=== PATIENT | male | born 1955 | race Caucasian/White ===

== ENCOUNTER 2020-06-13 09:01 | Inpatient (IN) | payer MEDICARE ==
[2020-06-13] MEDS ORDERED: VANCOMYCIN IV PER PHARMACY 1 EACH MISC MISCELLANE PRN (09:31)
[2020-06-13] MEDS ORDERED: AMPICILLIN-SULBACTAM 3 GM in SODIUM CHLORIDE 0.9% 100 ML IVPB STA (09:31)
[2020-06-13] MEDS ORDERED: ACETAMINOPHEN TAB 325 MG TAB PO PRN (09:33)
[2020-06-13] MEDS ORDERED: NALOXONE 0.4 MG/ML 1 ML VIAL IV PRN (09:33)
--- NOTE | 2020-06-13 09:43 | ED ---
General Adult HPI - General Stated complaint: Wounds on feet - sent by PCP Time Seen by Provider: 06/13/20 09:13 Source: patient, family, RN/MD, RN notes reviewed, old records reviewed Limitations: no limitations - History of Present Illness Initial comments: Patient is a pleasant 5 he 5-year-old male presenting to the emergency Department with complaints of concern for gangrene to his left foot. Patient has been seen Dr. Fox for this. Patient was advised come the emergency department this morning. Patient does complain of discomfort. Patient states he has chronic problems however much worse over the past couple of days. Patient has known blockages and does not have any pulses in his left foot. Patient states he is now getting more wounds and color is changing. No fevers. Patient does have history of similar symptoms previously and has previous toe amputations. Pain at this time is mild - Related Data Home Medications Medication Instructions Recorded Confirmed Atorvastatin [Lipitor] 40 mg PO DAILY 01/08/18 09/03/18 Clopidogrel [Plavix] 75 mg PO DAILY 01/08/18 09/03/18 Enalapril [Vasotec] 10 mg PO DAILY 01/08/18 09/03/18 Metoprolol Succinate [Toprol XL] 50 mg PO BID 01/08/18 09/03/18 Warfarin [Coumadin] 2.5 mg PO DIRECTED 01/08/18 09/03/18 Warfarin [Coumadin] 5 mg PO MOTUTHFRSA 01/08/18 09/03/18 hydroCHLOROthiazide [Hydrodiuril] 50 mg PO DAILY 01/08/18 09/03/18 metFORMIN HCL [Glucophage] 500 mg PO BID 01/08/18 09/03/18 Lidocaine 2% Gel [Xylocaine Jelly 1 applic TOPICAL ONETIME PRN 09/03/18 09/03/18 2%] Sulfamethox-Tmp 800-160Mg [Bactrim 1 tab PO Q12HR 09/03/18 09/03/18 DS 800-160 mg] Allergies Allergy/AdvReac Type Severity Reaction Status Date / Time No Known Allergies Allergy Verified 06/13/20 10:29 Review of Systems ROS Statement: Those systems with pertinent positive or pertinent negative responses have been documented in the HPI. ROS Other: All systems not noted in ROS Statement are negative. Constitutional: Denies: fever Eyes: Denies: eye pain ENT: Denies: ear pain Respiratory: Denies: cough Cardiovascular: Denies: chest pain Endocrine: Denies: fatigue Gastrointestinal: Denies: abdominal pain Genitourinary: Denies: dysuria Musculoskeletal: Denies: back pain Skin: Reports: as per HPI Neurological: Denies: weakness Past Medical History Past Medical History: Atrial Fibrillation, Diabetes Mellitus, Hyperlipidemia, Hypertension History of Any Multi-Drug Resistant Organisms: None Reported Past Surgical History: Heart Catheterization With Stent, Orthopedic Surgery Additional Past Surgical History / Comment(s): toe amputation, cataracts Past Anesthesia/Blood Transfusion Reactions: No Reported Reaction Date of Last Stent Placement:: 2015 Past Psychological History: No Psychological Hx Reported Smoking Status: Heavy tobacco smoker Past Alcohol Use History: Rare Past Drug Use History: None Reported - Past Family History Mother Family Medical History: Diabetes Mellitus General Exam Limitations: no limitations General appearance: alert, in no apparent distress Head exam: Present: atraumatic Eye exam: Present: normal appearance Neck exam: Present: normal inspection Respiratory exam: Present: normal lung sounds bilaterally Cardiovascular Exam: Present: irregular rhythm Expanded Peripheral pulses: 0: Posterior Tibialis (L), Dorsalis Pedis (L) GI/Abdominal exam: Present: soft. Absent: tenderness Extremities exam: Present: other (Left foot cool. Absent pulse. Purplish/black discoloration medially to the ankle, laterally above the left ankle. Several large ulcers. Foul odor.) Neurological exam: Present: alert Psychiatric exam: Present: normal affect, normal mood Skin exam: Present: other (Foot gangrene, left) Course Vital Signs 06/13/20 10:03 Temperature 98.1 F Pulse Rate 83 Respiratory 16 Rate Blood Pressure 111/79 O2 Sat by Pulse 95 Oximetry EKG Findings - EKG Comments: EKG Findings:: Atrial fibrillation with a rate of 88. QRS 158. QT 422. QTC 510. Right axis. Right bundle branch block. No acute ST change. Medical Decision Making - Medical Decision Making Patient updated on plan. Case was discussed with Dr. Fox who does want patient admitted to medicine with consult for him, Dr. Craft, and Dr. Bolden. No heparin is necessary. He does request Unasyn and vancomycin. Case also discussed with Dr. tena, who will admit, covering for Dr. Willoughby, who admits for Dr. Lambert. - Lab Data Result diagrams: 06/13/20 09:38 06/13/20 09:38 Disposition Clinical Impression: Gangrene of left foot Disposition: ADMITTED IP TO THIS HOSP Is patient prescribed a controlled substance at d/c from ED?: No
[2020-06-13] MEDS: HYDROmorphone 1 MG/ML 1 ML SYRINGE IVP PRN (10:01)
[2020-06-13] MEDS: SODIUM CHLORIDE 0.9% 1,000 ML IV SCH ×2 (10:08→16:59)
[2020-06-13 10:26] LABS: Basophils # (A) 0.1 k/uL (0-0.2); Basophils % (A) 0 %; Eosinophils # (A) 0.2 k/uL (0-0.7); Eosinophils % (A) 1 %; HCT 35.7 % (39.0-53.0); HGB 11.4 gm/dL (13.0-17.5); Hypochromasia Moderate; Lymphocytes # (A) 1.1 k/uL (1.0-4.8); Lymphocytes % (A) 7 %; MCH 27.2 pg (25.0-35.0); MCHC 31.9 g/dL (31.0-37.0); MCV 85.1 fL (80.0-100.0); Monocytes # (A) 0.6 k/uL (0-1.0); Monocytes % (A) 4 %; Neutrophils # (A) 13.9 k/uL (1.3-7.7); Neutrophils % (A) 87 %; Platelet Count 515 k/uL (150-450); Poikilocytosis Slight; RBC 4.19 m/uL (4.30-5.90); RDW 15.5 % (11.5-15.5)
[2020-06-13] MEDS ORDERED: VANCOMYCIN 1,750 MG in SODIUM CHLORIDE 0.9% 500 ML 500 ML IVPB ONE (10:30)
[2020-06-13] MEDS ORDERED: VANCOMYCIN 2,000 MG in SODIUM CHLORIDE 0.9% 500 ML 500 ML IVPB ONE (10:30)
[2020-06-13 10:32] LABS: Albumin 2.6 g/dL (3.5-5.0); Calcium 8.7 mg/dL (8.4-10.2); Potassium 5.6 mmol/L (3.5-5.1); Total Bilirubin 0.8 mg/dL (0.2-1.3); Total Protein 6.7 g/dL (6.3-8.2)
[2020-06-13 10:58] LABS: INR 2.7 (<1.2); Partial Thromboplastin Time 35.6 sec (22.0-30.0); Prothrombin Time 26.5 sec (9.0-12.0)
--- NOTE | 2020-06-13 11:00 | XR ---
Left foot HISTORY: Gangrene 3 views the left foot There is prior operative change status post amputation of the digits, first through fourth metatarsal s are present with associated soft tissue swelling, suspect erosion of the second metatarsal head. Fo urth metatarsal head is in close proximity to the skin level. Soft tissue swelling is noted. Fifth me tatarsal shows only the proximal portion present and may be extending through the skin on the frontal view. No evident periostitis. Lucency is present in the soft tissues involving the distal leg and fo ot. Plantar calcaneus spur noted. impression: Findings consistent with osteomyelitis, possible gas-forming organisms within the soft ti ssues, correlate for cellulitis, possible myositis, abscess.
[2020-06-13 11:39] LABS: Glucose,Whole Blood 139 mg/dL (75-99)
--- NOTE | 2020-06-13 12:30 | P.GSCN ---
History of Present Illness History of present illness: 65-year-old diabetic male history of chronic wound left foot with some gangrene changes. Patient has been admitted patient has history of atrial fibrillation coronary artery disease patient had a heart catheterization by Dr. Gaston has a triple coronary artery disease. Patient also has a left iliac occlusive disease patient will need intervention by Dr. Gaston for coronary artery disease then we will proceed for left external iliac artery and direct with patch angioplasty and possible profundoplasty after revascularization patient will need amputation Neck supple no bruit appreciated Chest clear good and both lungs few crackles the lung bases Abdomen is soft nontender Vascular examination femoral is 1+ on the right side Side is not palpable patient has a gangrene changes of the left foot Plan is discussed with Dr. Gaston patient will go for cardiac intervention as soon as possible in the meantime continue with IV antibiotic and local wound care Past Medical History Past Medical History: Atrial Fibrillation, Diabetes Mellitus, Hyperlipidemia, Hypertension History of Any Multi-Drug Resistant Organisms: None Reported Past Surgical History: Heart Catheterization With Stent, Orthopedic Surgery Additional Past Surgical History / Comment(s): toe amputation, cataracts Past Anesthesia/Blood Transfusion Reactions: No Reported Reaction Date of Last Stent Placement:: 2015 Past Psychological History: No Psychological Hx Reported Smoking Status: Heavy tobacco smoker Past Alcohol Use History: Rare Past Drug Use History: None Reported - Past Family History Mother Family Medical History: Diabetes Mellitus Medications and Allergies Home Medications Medication Instructions Recorded Confirmed Type Atorvastatin [Lipitor] 40 mg PO DAILY 01/08/18 06/13/20 History Clopidogrel [Plavix] 75 mg PO DAILY 01/08/18 06/13/20 History Enalapril [Vasotec] 10 mg PO DAILY 01/08/18 06/13/20 History Warfarin [Coumadin] See Taper PO DAILY 01/08/18 06/13/20 History Amoxicillin/Potassium Clav 1 tab PO Q12H 06/13/20 06/13/20 History [Augmentin 875-125 Tablet] Aspirin EC [Ecotrin Low Dose] 81 mg PO DAILY 06/13/20 06/13/20 History Carvedilol [Coreg] 12.5 mg PO BID-W/MEALS 06/13/20 06/13/20 History Furosemide [Lasix] 20 mg PO DAILY 06/13/20 06/13/20 History HYDROcodone/APAP 10-325MG [[place] 1 tab PO Q4H PRN 06/13/20 06/13/20 History 10-325] Insulin Detemir (Levemir) [Levemir] 30 units SQ QAM 06/13/20 06/13/20 History Allergies Allergy/AdvReac Type Severity Reaction Status Date / Time No Known Allergies Allergy Verified 06/13/20 10:29 Surgical - Exam Vital Signs Temp Pulse Resp BP Pulse Ox 98.1 F 83 16 111/79 95 06/13/20 10:03 06/13/20 10:03 06/13/20 10:03 06/13/20 10:03 06/13/20 10:03 Results - Labs 06/13/20 09:38 06/13/20 09:38 Abnormal Lab Results - Last 24 Hours (Table) 06/13/20 06/13/20 06/13/20 Range/Units 09:38 09:38 09:38 WBC 16.0 H (3.8-10.6) k/uL RBC 4.19 L (4.30-5.90) m/uL Hgb 11.4 L (13.0-17.5) gm/dL Hct 35.7 L (39.0-53.0) % Plt Count 515 H (150-450) k/uL Neutrophils # 13.9 H (1.3-7.7) k/uL PT 26.5 H (9.0-12.0) sec INR 2.7 H (<1.2) APTT 35.6 H (22.0-30.0) sec Sodium 135 L (137-145) mmol/L Potassium 5.6 H (3.5-5.1) mmol/L Carbon Dioxide 21 L (22-30) mmol/L BUN 48 H (9-20) mg/dL Creatinine 2.19 H (0.66-1.25) mg/dL Glucose 118 H (74-99) mg/dL POC Glucose (mg/dL) (75-99) mg/dL Plasma Lactic Acid Henri (0.7-2.0) mmol/L Alkaline Phosphatase 221 H (38-126) U/L Albumin 2.6 L (3.5-5.0) g/dL 06/13/20 06/13/20 Range/Units 09:38 11:38 WBC (3.8-10.6) k/uL RBC (4.30-5.90) m/uL Hgb (13.0-17.5) gm/dL Hct (39.0-53.0) % Plt Count (150-450) k/uL Neutrophils # (1.3-7.7) k/uL PT (9.0-12.0) sec INR (<1.2) APTT (22.0-30.0) sec Sodium (137-145) mmol/L Potassium (3.5-5.1) mmol/L Carbon Dioxide (22-30) mmol/L BUN (9-20) mg/dL Creatinine (0.66-1.25) mg/dL Glucose (74-99) mg/dL POC Glucose (mg/dL) 139 H (75-99) mg/dL Plasma Lactic Acid Henri 2.3 H* (0.7-2.0) mmol/L Alkaline Phosphatase (38-126) U/L Albumin (3.5-5.0) g/dL Diabetes panel 06/13/20 Range/Units 09:38 Sodium 135 L (137-145) mmol/L Potassium 5.6 H (3.5-5.1) mmol/L Chloride 106 (98-107) mmol/L Carbon Dioxide 21 L (22-30) mmol/L BUN 48 H (9-20) mg/dL Creatinine 2.19 H (0.66-1.25) mg/dL Glucose 118 H (74-99) mg/dL Calcium 8.7 (8.4-10.2) mg/dL AST 25 (17-59) U/L ALT 24 (4-49) U/L Alkaline Phosphatase 221 H (38-126) U/L Total Protein 6.7 (6.3-8.2) g/dL Albumin 2.6 L (3.5-5.0) g/dL Calcium panel 06/13/20 Range/Units 09:38 Calcium 8.7 (8.4-10.2) mg/dL Albumin 2.6 L (3.5-5.0) g/dL Pituitary panel 06/13/20 Range/Units 09:38 Sodium 135 L (137-145) mmol/L Potassium 5.6 H (3.5-5.1) mmol/L Chloride 106 (98-107) mmol/L Carbon Dioxide 21 L (22-30) mmol/L BUN 48 H (9-20) mg/dL Creatinine 2.19 H (0.66-1.25) mg/dL Glucose 118 H (74-99) mg/dL Calcium 8.7 (8.4-10.2) mg/dL Adrenal panel 06/13/20 Range/Units 09:38 Sodium 135 L (137-145) mmol/L Potassium 5.6 H (3.5-5.1) mmol/L Chloride 106 (98-107) mmol/L Carbon Dioxide 21 L (22-30) mmol/L BUN 48 H (9-20) mg/dL Creatinine 2.19 H (0.66-1.25) mg/dL Glucose 118 H (74-99) mg/dL Calcium 8.7 (8.4-10.2) mg/dL Total Bilirubin 0.8 (0.2-1.3) mg/dL AST 25 (17-59) U/L ALT 24 (4-49) U/L Alkaline Phosphatase 221 H (38-126) U/L Total Protein 6.7 (6.3-8.2) g/dL Albumin 2.6 L (3.5-5.0) g/dL
[2020-06-13] MEDS ORDERED: AMPICILLIN-SULBACTAM 1.5 GM in SODIUM CHLORIDE 0.9% 50 ML IVPB SCH (14:00)
[2020-06-13] MEDS: DAPTOmycin 500 MG in SODIUM CHLORIDE 0.9% 50 ML IVPB SCH (15:47)
[2020-06-13 16:40] LABS: Glucose,Whole Blood 173 mg/dL (75-99)
[2020-06-13] MEDS: PIPERACILLIN-TAZOBACTAM 3.375 GM in SODIUM CHLORIDE 0.9% 100 ML IVPB SCH ×2 (16:53→23:06)
[2020-06-13] MEDS: HYDROcodone/APAP 5-325MG 1 EACH TAB PO PRN ×2 (16:54→23:06)
[2020-06-13] MEDS: carvediloL 12.5 MG TAB PO SCH (16:58)
[2020-06-13] MEDS ORDERED: WARFARIN 2 MG TAB PO SCH (18:00)
[2020-06-13] MEDS ORDERED: WARFARIN 3 MG TAB PO SCH (18:00)
--- NOTE | 2020-06-13 18:40 | CONS ---
CONSULTATION DATE OF SERVICE: 06/13/2020. REASON FOR CONSULTATION: left foot. HISTORY OF PRESENT ILLNESS: The patient is a 65-year-old male with a past medical history significant for peripheral arterial disease in this patient who continue to smoke about a pack a day. This patient did have a chronic nonhealing wound to the left foot lateral border after amputation of his left fifth toe. The patient has been following up [facility] The patient noticed to have significant discoloration and some foul-smelling drainage from the left foot area. The patient has been advised admission to the hospital as the patient did have significant coronary artery disease and needs correction of that before any surgical intervention to the left foot is done. The patient denies having any fever or any chills. The patient has been complaining of pain to the left foot, more of a dull aching pain, or pressure, 5 to 6 out of 10, no radiation. The patient on presentation to the hospital was afebrile. The patient did have white count of 16,000. Kidney function is 2.19. Lactic acid was 2.3. The patient did have x-rays of the left foot which shows possible organism within the soft tissue. The patient has been started on vancomycin and Unasyn. Infectious Disease was consulted for further management of antibiotic therapy. REVIEW OF SYSTEMS: Positive points have been mentioned in HPI. Rest of systems are negative. PAST MEDICAL HISTORY: Atrial fibrillation, diabetes mellitus, hypertension, hyperlipidemia, diabetic foot infection. PAST SURGICAL HISTORY: Right transmetatarsal amputation, left fifth toe amputation, PTCA with stent, and cataract surgery. SOCIAL HISTORY: The patient continues to smoke about a pack a day. Did have heavy history of smoking. Rarely drinks. No drug use. FAMILY HISTORY: Mother history of diabetes. ALLERGIES: No known drug allergies. MEDICATIONS: Include the patient is currently on Tylenol, Rufe, aspirin, Coreg, Plavix, vancomycin, pharmacy to dose; he is on Unasyn, Lasix, Dilaudid, Levemir, Narcan, Protonix, and IV fluid. PHYSICAL EXAMINATION: Blood pressure 134/82 with a pulse of 68, temperature 97.9, he is 99% on room air. General description is an elderly male lying in bed in no distress. No tachypnea or accessory muscle of respiration use. HEENT: Examination shows slight pallor. No scleral icterus. Oral mucous membranes dry. No pharyngeal erythema or thrush. NECK: Trachea is central. No thyromegaly. LUNGS unlabored breathing with decreased breath sounds in the base, with no wheeze or crackles. HEART S1, S2. Regular rate and rhythm. ABDOMEN: Soft, no tenderness. EXTREMITIES: Left foot cold with significant blackish discoloration, foul smelling. NEUROLOGICAL: Patient awake, alert and oriented times three. Mood and affect normal. LABS: Hemoglobin 11.4, white count 16.9, BUN of 40, creatinine is 2.19. DIAGNOSTIC IMPRESSION/PLAN: 1. Patient with extensive left diabetic foot infection in this patient who did have significant PAD in this patient who continues to smoke despite having a problem with nonhealing of the wound and did have significant PAD as evidenced on the previous angiogram, also with coronary artery disease currently now admitted to the hospital with worsening left foot more likely secondary to ischemia. Underlying infection not entirely excluded in this patient with elevated white count. However, the patient not running any fever. Does not look toxic. 2. Patient with renal insufficiency, high risk of nephrotoxicity from vancomycin. PLAN: 1. Discontinue vancomycin and Unasyn. 2. Start the patient on daptomycin 500 mg daily along with Zosyn. 3. Local wound care to continue per vascular surgery. 4. We will follow on clinical condition and culture to further adjust medication if needed. Thank you for this consultation. We will follow this patient along with you. MMODL / IJN: [id number] /
--- NOTE | 2020-06-13 18:51 | P.HPIM ---
History of Present Illness This is a pleasant 65 years old male with past medical history of diabetes mellitus, hyperlipidemia, hypertension, atrial fibrillation on Coumadin. He is a patient of Dr. Lambert and was sent by his surgeon Dr. Fox to the hospital for gangrenous left foot, patient could not service 54 hole long is suffering from this problem except for a long time it was slowly progressive. Currently his left foot looks like as well as the distal part of the leg with area of fluctuation and discoloration. Patient has been sent to the hospital by his vascular surgeon Dr. Fox recommended also vascular intervention by claim agent Dr. Gaston for internal and external iliac artery disease Vitals looks stable. Labs showed leukocytosis with 16.0 K, hemoglobin 11.4, platelet 5.5. INR is 2.7. Potassium 5.6, creatinine 2.19, unknown baseline EKG showing atrial fibrillation at a rate of 88 with QTC of 510, left foot x-ray showing osteomyelitis with possible gas-forming organisms within the soft tissue, correlate for cellulitis, possible myositis an abscess Lactic acid is 2.3. Liver enzymes not elevated On admission patient was started on Unasyn and IV vancomycin Consult was placed for Dr. Gaston, infectious disease team and Dr. Omer on admission patient Review of Systems CONSTITUTIONAL: No fever, no malaise, no fatigue. HEENT: No recent visual problems or hearing problems. Denied any sore throat. CARDIOVASCULAR: No orthopnea, PND, no palpitations, no syncope. PULMONARY: No shortness of breath, no cough, no hemoptysis. GASTROINTESTINAL: No diarrhea, no nausea, no vomiting, no abdominal pain. Normoactive bowel sounds. NEUROLOGICAL: No headaches, no weakness, no numbness. HEMATOLOGICAL: Denies any bleeding or petechiae. GENITOURINARY: Denies any burning micturition, frequency, or urgency. MUSCULOSKELETAL/RHEUMATOLOGICAL: Denies any joint pain, swelling, or any muscle pain. ENDOCRINE: Denies any polyuria or polydipsia. Past Medical History Past Medical History: Atrial Fibrillation, Diabetes Mellitus, Hyperlipidemia, Hypertension History of Any Multi-Drug Resistant Organisms: None Reported Past Surgical History: Heart Catheterization With Stent, Orthopedic Surgery Additional Past Surgical History / Comment(s): toe amputation, cataracts Past Anesthesia/Blood Transfusion Reactions: No Reported Reaction Date of Last Stent Placement:: 2015 Past Psychological History: No Psychological Hx Reported Smoking Status: Heavy tobacco smoker Past Alcohol Use History: Rare Past Drug Use History: None Reported - Past Family History Mother Family Medical History: Diabetes Mellitus Medications and Allergies Home Medications Medication Instructions Recorded Confirmed Type Atorvastatin [Lipitor] 40 mg PO DAILY 01/08/18 06/13/20 History Clopidogrel [Plavix] 75 mg PO DAILY 01/08/18 06/13/20 History Enalapril [Vasotec] 10 mg PO DAILY 01/08/18 06/13/20 History Warfarin [Coumadin] See Taper PO DAILY 01/08/18 06/13/20 History Amoxicillin/Potassium Clav 1 tab PO Q12H 06/13/20 06/13/20 History [Augmentin 875-125 Tablet] Aspirin EC [Ecotrin Low Dose] 81 mg PO DAILY 06/13/20 06/13/20 History Carvedilol [Coreg] 12.5 mg PO BID-W/MEALS 06/13/20 06/13/20 History Furosemide [Lasix] 20 mg PO DAILY 06/13/20 06/13/20 History HYDROcodone/APAP 10-325MG [[place] 1 tab PO Q4H PRN 06/13/20 06/13/20 History 10-325] Insulin Detemir (Levemir) [Levemir] 30 units SQ QAM 06/13/20 06/13/20 History Allergies Allergy/AdvReac Type Severity Reaction Status Date / Time No Known Allergies Allergy Verified 06/13/20 10:29 Physical Exam Vitals: Vital Signs Temp Pulse Pulse Resp BP BP Pulse Ox 06/13/20 10:56 97.7 F 74 18 100/56 98 06/13/20 10:03 98.1 F 83 16 111/79 95 Intake and Output 06/12/20 06/13/20 06/13/20 22:59 06:59 14:59 Other: Weight 91.626 kg GENERAL: The patient is alert and oriented x3, not in any acute distress. Well developed, well nourished. HEENT: Pupils are round and equally reacting to light. EOMI. No scleral icterus. No conjunctival pallor. Normocephalic, atraumatic. No pharyngeal erythema. No thyromegaly. CARDIOVASCULAR: S1 and S2 present. No murmurs, rubs, or gallops. PULMONARY: Chest is clear to auscultation, no wheezing or crackles. ABDOMEN: Soft, nontender, nondistended, normoactive bowel sounds. No palpable organomegaly. MUSCULOSKELETAL: No joint swelling or deformity. -EXTREMITIES: No cyanosis, clubbing, or pedal edema. Left foot is black, painless, looks infected with area of fluctuation abscess especially on the lateral side, his gangrene looks extending into the distal left leg NEUROLOGICAL: Gross neurological examination did not reveal any focal deficits. SKIN: No rashes. No petechiae Results CBC & Chem 7: 06/13/20 09:38 06/13/20 09:38 Labs: Abnormal Lab Results - Last 24 Hours (Table) 06/13/20 06/13/20 06/13/20 Range/Units 09:38 09:38 09:38 WBC 16.0 H (3.8-10.6) k/uL RBC 4.19 L (4.30-5.90) m/uL Hgb 11.4 L (13.0-17.5) gm/dL Hct 35.7 L (39.0-53.0) % Plt Count 515 H (150-450) k/uL Neutrophils # 13.9 H (1.3-7.7) k/uL PT 26.5 H (9.0-12.0) sec INR 2.7 H (<1.2) APTT 35.6 H (22.0-30.0) sec Sodium 135 L (137-145) mmol/L Potassium 5.6 H (3.5-5.1) mmol/L Carbon Dioxide 21 L (22-30) mmol/L BUN 48 H (9-20) mg/dL Creatinine 2.19 H (0.66-1.25) mg/dL Glucose 118 H (74-99) mg/dL POC Glucose (mg/dL) (75-99) mg/dL Plasma Lactic Acid Henri (0.7-2.0) mmol/L Alkaline Phosphatase 221 H (38-126) U/L Albumin 2.6 L (3.5-5.0) g/dL 06/13/20 06/13/20 Range/Units 09:38 11:38 WBC (3.8-10.6) k/uL RBC (4.30-5.90) m/uL Hgb (13.0-17.5) gm/dL Hct (39.0-53.0) % Plt Count (150-450) k/uL Neutrophils # (1.3-7.7) k/uL PT (9.0-12.0) sec INR (<1.2) APTT (22.0-30.0) sec Sodium (137-145) mmol/L Potassium (3.5-5.1) mmol/L Carbon Dioxide (22-30) mmol/L BUN (9-20) mg/dL Creatinine (0.66-1.25) mg/dL Glucose (74-99) mg/dL POC Glucose (mg/dL) 139 H (75-99) mg/dL Plasma Lactic Acid Henri 2.3 H* (0.7-2.0) mmol/L Alkaline Phosphatase (38-126) U/L Albumin (3.5-5.0) g/dL Thrombosis Risk Factor Assmnt - Choose All That Apply Each Factor Represents 1 point: Acute NM Each Risk Factor Represents 2 Points: Age 61-74 years Thrombosis Risk Factor Assessment Total Risk Factor Score: 3 Thrombosis Risk Factor Assessment Level: Moderate Risk Assessment and Plan Assessment: Gangrene of the left foot, x-rays suspicious for cellulitis, myositis or an abscess with possible osteomyelitis and gas-forming organisms in the soft tissue Acute kidney injury with hyperkalemia Peripheral vascular disease History of coronary artery disease, 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 Continue with antibiotics and follow-up recommendation of infectious disease team. Also claim agent and vascular surgeon on the case. Continue with gentle hydration on follow-up creatinine. Pain management Hold vasotec Labs and medication were reviewed.. Continue same treatment. Continue with symptomatic treatment. Resume home medication. Monitor lytes and vitals. DVT and GI prophylaxis. Further recommendations depends on the clinical course of the patient DVT prophylaxis: Warfarin GI Prophylaxis: Ppi PT/OT: Pending Prognosis is guarded
[2020-06-13 20:42] LABS: Glucose,Whole Blood 221 mg/dL (75-99)
[2020-06-13] MEDS: INSULIN ASPART (NovoLOG) 100 UNIT/ML VIAL SQ SCH (21:04)
[2020-06-14] MEDS: SODIUM CHLORIDE 0.9% 1,000 ML IV SCH ×4 (03:08→23:54)
[2020-06-14] MEDS: HYDROcodone/APAP 5-325MG 1 EACH TAB PO PRN ×5 (04:00→22:17)
[2020-06-14 06:49] LABS: Glucose,Whole Blood 131 mg/dL (75-99)
[2020-06-14 06:50] LABS: Basophils % (A) 0 %; Eosinophils # (A) 0.2 k/uL (0-0.7); Eosinophils % (A) 1 %; HCT 31.9 % (39.0-53.0); HGB 10.1 gm/dL (13.0-17.5); Hypochromasia Moderate; Lymphocytes # (A) 0.9 k/uL (1.0-4.8); Lymphocytes % (A) 6 %; MCH 27.1 pg (25.0-35.0); MCHC 31.6 g/dL (31.0-37.0); MCV 85.8 fL (80.0-100.0); Mean Platelet Volume 7.8; Monocytes # (A) 0.5 k/uL (0-1.0); Monocytes % (A) 4 %; Neutrophils # (A) 12.2 k/uL (1.3-7.7); Neutrophils % (A) 87 %; Platelet Count 421 k/uL (150-450); Poikilocytosis Slight; RBC 3.72 m/uL (4.30-5.90); RDW 15.6 % (11.5-15.5)
[2020-06-14] MEDS: HYDROmorphone 0.5 MG/0.5 ML SYRINGE IVP PRN ×2 (07:29→21:31)
[2020-06-14] MEDS: INSULIN DETEMIR (LEVEMIR) 100 UNIT/ML SYR SQ SCH (08:13)
[2020-06-14] MEDS: ASPIRIN 81 MG PO SCH (08:13)
[2020-06-14] MEDS: CLOPIDOGREL 75 MG TAB PO SCH (08:13)
[2020-06-14] MEDS: carvediloL 12.5 MG TAB PO SCH ×2 (08:14→17:25)
[2020-06-14] MEDS: PIPERACILLIN-TAZOBACTAM 3.375 GM in SODIUM CHLORIDE 0.9% 100 ML IVPB SCH ×3 (08:14→23:52)
[2020-06-14] MEDS: FUROSEMIDE 20 MG TAB PO SCH (08:22)
[2020-06-14] MEDS ORDERED: VANCOMYCIN 1,750 MG in SODIUM CHLORIDE 0.9% 500 ML 500 ML IVPB SCH (09:00)
[2020-06-14] MEDS ORDERED: ATORVASTATIN 40 MG TAB PO SCH (09:00)
[2020-06-14] MEDS: INSULIN ASPART (NovoLOG) 100 UNIT/ML VIAL SQ SCH ×4 (09:04→21:11)
[2020-06-14 09:42] LABS: INR 3.85 (0.90-1.11); Prothrombin Time 37.6 sec (9.9-11.9)
[2020-06-14] MEDS: PANTOPRAZOLE 40 MG/10 ML VIAL IV SCH (10:07)
[2020-06-14 11:19] LABS: Glucose,Whole Blood 202 mg/dL (75-99)
--- NOTE | 2020-06-14 11:23 | P.PN ---
Subjective This is a pleasant 65 years old male with past medical history of diabetes mellitus, hyperlipidemia, hypertension, atrial fibrillation on Coumadin. He is a patient of Dr. Lambert and was sent by his surgeon Dr. Fox to the hospital for gangrenous left foot, patient could not service 54 hole long is suffering from this problem except for a long time it was slowly progressive. Currently his left foot looks like as well as the distal part of the leg with area of fluctuation and discoloration. Patient has been sent to the hospital by his vascular surgeon Dr. Fox recommended also vascular intervention by maintenance instructor Dr. Gaston for internal and external iliac artery disease Vitals looks stable. Labs showed leukocytosis with 16.0 K, hemoglobin 11.4, platelet 5.5. INR is 2.7. Potassium 5.6, creatinine 2.19, unknown baseline EKG showing atrial fibrillation at a rate of 88 with QTC of 510, left foot x-ray showing osteomyelitis with possible gas-forming organisms within the soft tissue, correlate for cellulitis, possible myositis an abscess Lactic acid is 2.3. Liver enzymes not elevated On admission patient was started on Unasyn and IV vancomycin Consult was placed for Dr. Gaston, infectious disease team and Dr. Omer on admission patient 06/14/2020 Patient admitted with left foot gangrene, no marked change in his clinical picture, Vitas looks stable and patient is afebrile. Leukocytosis improved to 14 K. Sugar is controlled and lactic acid is back to normal. BMP is pending because his and send out test Vascular Surgery and infectious disease on the case. [employer] Professional consult is pending Review of Systems CONSTITUTIONAL: No fever, no malaise, no fatigue. HEENT: No recent visual problems or hearing problems. Denied any sore throat. CARDIOVASCULAR: No orthopnea, PND, no palpitations, no syncope. PULMONARY: No shortness of breath, no cough, no hemoptysis. GASTROINTESTINAL: No diarrhea, no nausea, no vomiting, no abdominal pain. Normoactive bowel sounds. Active Medications Generic Name Dose Route Start Last Admin Trade Name Freq PRN Reason Stop Dose Admin Acetaminophen 650 mg 06/13/20 09:33 Acetaminophen Tab 325 Mg Tab PO Q6HR PRN Mild Pain or Fever > 100.5 Hydrocodone Bitart/Acetaminophen 1 each 06/13/20 09:33 06/14/20 08:13 Hydrocodone/Apap 5-325mg 1 Each Tab PO 1 each Q4HR PRN Administration Moderate Pain Aspirin 81 mg 06/14/20 09:00 06/14/20 08:13 Aspirin 81 Mg PO 81 mg DAILY [facility] Administration Carvedilol 12.5 mg 06/13/20 17:30 06/14/20 08:14 Carvedilol 12.5 Mg Tab PO 12.5 mg BID-W/MEALS [facility] Administration Clopidogrel Bisulfate 75 mg 06/14/20 09:00 06/14/20 08:13 Clopidogrel 75 Mg Tab PO 75 mg DAILY [facility] Administration Furosemide 20 mg 06/14/20 09:00 06/14/20 08:22 Furosemide 20 Mg Tab PO 20 mg DAILY [facility] Administration Hydromorphone HCl 0.5 mg 06/13/20 09:33 06/14/20 07:29 Hydromorphone 0.5 Mg/0.5 Ml Syringe IVP 0.5 mg Q3HR PRN Administration Moderate Pain Hydromorphone HCl 1 mg 06/13/20 09:33 06/13/20 10:01 Hydromorphone 1 Mg/Ml 1 Ml Syringe IVP 1 mg Q3HR PRN Administration Severe Pain Sodium Chloride 1,000 mls @ 130 mls/hr 06/13/20 09:15 06/14/20 09:04 Saline 0.9% IV Not Given .Q7H42M [facility] Daptomycin 500 mg/ Sodium 50 mls @ 100 mls/hr 06/13/20 16:00 06/13/20 15:47 Chloride IVPB 100 mls/hr Q24H [facility] Administration Protocol Piperacillin Sod/Tazobactam 100 mls @ 25 mls/hr 06/13/20 16:00 06/14/20 08:14 Sod 3.375 gm/ Sodium Chloride IVPB 25 mls/hr Q8HR [facility] Administration Insulin Aspart 0 unit 06/13/20 21:00 06/14/20 09:04 Insulin Aspart (Novolog) 100 Unit/Ml Vial SQ Not Given ACHS [facility] Protocol Insulin Detemir 30 unit 06/14/20 07:00 06/14/20 08:13 Insulin Detemir (Levemir) 100 Unit/Ml Syr SQ 30 unit DAILY@0700 [facility] Administration Miscellaneous Information 0 each 06/13/20 12:01 Warfarin Per Pharmacy MISCELLANE DIRECTED PRN ANTICOAG Naloxone HCl 0.2 mg 06/13/20 09:33 Naloxone 0.4 Mg/Ml 1 Ml Vial IV Q2M PRN Opioid Reversal Pantoprazole Sodium 40 mg 06/14/20 09:00 06/14/20 10:07 Pantoprazole 40 Mg/10 Ml Vial IV 40 mg DAILY [facility] Administration Warfarin Sodium 0 mg 06/14/20 18:00 Warfarin 0.5 Mg Tab PO 06/14/20 18:01 ONCE@1800 ONE Objective - Vital Signs Vital signs: Vital Signs Temp 97.8 F 06/14/20 08:13 Pulse 75 06/14/20 08:04 Resp 16 06/14/20 08:14 BP 111/61 06/14/20 08:04 Pulse Ox 94 L 06/14/20 08:04 Intake & Output 06/13/20 06/14/20 06/14/20 18:59 06:59 18:59 Weight 91.626 kg Other: Voiding Method Toilet Toilet Urinal Urinal # Voids 3 - Exam GENERAL: The patient is alert and oriented x3, not in any acute distress. Well developed, well nourished. HEENT: Pupils are round and equally reacting to light. EOMI. No scleral icterus. No conjunctival pallor. Normocephalic, atraumatic. No pharyngeal erythema. No thyromegaly. CARDIOVASCULAR: S1 and S2 present. No murmurs, rubs, or gallops. PULMONARY: Chest is clear to auscultation, no wheezing or crackles. ABDOMEN: Soft, nontender, nondistended, normoactive bowel sounds. No palpable organomegaly. MUSCULOSKELETAL: No joint swelling or deformity. -EXTREMITIES: No cyanosis, clubbing, or pedal edema. Left foot is black, painless, looks infected with area of fluctuation abscess especially on the lateral side, his gangrene looks extending into the distal left leg NEUROLOGICAL: Gross neurological examination did not reveal any focal deficits. SKIN: No rashes. No petechiae - Labs CBC & Chem 7: 06/14/20 06:41 06/13/20 09:38 Labs: Abnormal Lab Results - Last 24 Hours (Table) 06/13/20 06/13/20 06/13/20 Range/Units 09:38 11:38 16:39 WBC (3.8-10.6) k/uL RBC (4.30-5.90) m/uL Hgb (13.0-17.5) gm/dL Hct (39.0-53.0) % RDW (11.5-15.5) % Neutrophils # 13.9 H (1.3-7.7) k/uL Lymphocytes # (1.0-4.8) k/uL PT (9.9-11.9) sec INR (0.90-1.11) POC Glucose (mg/dL) 139 H 173 H (75-99) mg/dL 06/13/20 06/14/20 06/14/20 Range/Units 20:40 06:41 06:41 WBC 14.0 H (3.8-10.6) k/uL RBC 3.72 L (4.30-5.90) m/uL Hgb 10.1 L (13.0-17.5) gm/dL Hct 31.9 L (39.0-53.0) % RDW 15.6 H (11.5-15.5) % Neutrophils # 12.2 H (1.3-7.7) k/uL Lymphocytes # 0.9 L (1.0-4.8) k/uL PT 37.6 H (9.9-11.9) sec INR 3.85 H (0.90-1.11) POC Glucose (mg/dL) 221 H (75-99) mg/dL 06/14/20 06/14/20 Range/Units 06:47 11:17 WBC (3.8-10.6) k/uL RBC (4.30-5.90) m/uL Hgb (13.0-17.5) gm/dL Hct (39.0-53.0) % RDW (11.5-15.5) % Neutrophils # (1.3-7.7) k/uL Lymphocytes # (1.0-4.8) k/uL PT (9.9-11.9) sec INR (0.90-1.11) POC Glucose (mg/dL) 131 H 202 H (75-99) mg/dL Assessment and Plan Assessment: Gangrene of the left foot, x-rays suspicious for cellulitis, myositis or an abscess with possible osteomyelitis and gas-forming organisms in the soft tissue Acute kidney injury with hyperkalemia Peripheral vascular disease History of coronary artery disease, 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 Continue with antibiotics and follow-up recommendation of infectious disease te am. Also maintenance instructor and vascular surgeon on the case. Continue with gentle hydration on follow-up creatinine. Pain management Hold vasotec Labs and medication were reviewed.. Continue same treatment. Continue with symptomatic treatment. Resume home medication. Monitor lytes and vitals. DVT and GI prophylaxis. Further recommendations depends on the clinical course of the patient DVT prophylaxis: Warfarin GI Prophylaxis: Ppi PT/OT: Pending Prognosis is guarded
[2020-06-14 12:17] LABS: African American GFR (CKD) 39.1 (60.0-200.0); Anion Gap 1.2 mmol/L (4.00-12.00); BUN/Creat Ratio 23.5 Ratio (12.00-20.00); Calcium 7.8 mg/dL (8.7-10.3); Carbon Dioxide 21.8 mmol/L (21.6-31.8); Non-African American GFR(CKD) 33.8 (60.0-200.0); Potassium 5.3 mmol/L (3.5-5.5)
[2020-06-14] MEDS: DAPTOmycin 500 MG in SODIUM CHLORIDE 0.9% 50 ML IVPB SCH (15:29)
[2020-06-14 16:52] LABS: Glucose,Whole Blood 148 mg/dL (75-99)
[2020-06-14] MEDS ORDERED: WARFARIN 0.5 MG TAB PO ONE (18:00)
--- NOTE | 2020-06-14 19:34 | P.CRDCN ---
History of Present Illness History of present illness: HISTORY OF PRESENTING ILLNESS This is a pleasant 65-year-old male past medical history significant for coronary artery disease status post PCI to the circumflex in 2003, PAD, persistent atrial fibrillation, hypertension, dyslipidemia and tobacco abuse. He follows in the office with Dr. Craft. Patient initially was seen for preoperative clearance by Dr. Craft for possible peripheral intervention. He had workup including an echocardiogram that showed ejection fraction 40-45% as well as a Lexiscan 06/02/20 which showed fixed inferior wall defect. Patient did have heart catheterization by Dr. Craft, which did show significant reported triple- vessel coronary artery disease, records currently not available. Patient follow-up with Dr. Fox for his nonhealing foot ulcer which had a malodorous and therefore was recommended to come to hospital. Patient overall does not state he has any fevers, chills. He denies foot pain. He was found to have left iliac occlusive disease and is being recommended for vascular intervention. DIAGNOSTICS EKG reveals appears to be atrial flutter with parable conduction, controlled rate at 88, normal axis, right bundle branch block, left posterior fascicular block, nonspecific ST depressions Laboratory reviewed, blood cell 14.0, hemoglobin 10.1, platelets 421, INR 3.85, sodium 132, creatinine 2.0. Current cardiac medications include aspirin 81 mg daily, carvedilol 12.5 mg daily, Plavix 75 mg daily, Lasix 20 mg daily, Coumadin has been held. REVIEW OF SYSTEMS At the time of my exam: CONSTITUTIONAL: Denies fever or chills. CARDIOVASCULAR: Denies chest pain, shortness of breath, orthopnea, PND or palpitations. RESPIRATORY: Denies cough. GASTROINTESTINAL: Denies abdominal pain, diarrhea, constipation, nausea or vomiting. MUSCULOSKELETAL: Denies myalgias. NEUROLOGIC: Denies numbness, tingling or weakness. ENDOCRINE: Denies fatigue, weight change, polydipsia or polyurina. GENITOURINARY: Denies burning, hematuria or urgency with micturation. HEMATOLOGIC: Denies history of anemia or bleeding. PHYSICAL EXAMINATION Blood pressure 120/73 heart rate 67 afebrile and maintaining oxygen saturation on room air. CONSTITUTIONAL: No apparent distress, chronically ill-appearing. HEENT: Head is normocephalic. Pupils are equal, round. Sclerae anicteric. Mucous membranes of the mouth are moist. No JVD. No carotid bruit. CHEST EXAMINATION: + Mild wheeze, no crackles. HEART EXAMINATION: Irregularly irregular rate and rhythm. S1, S2 heard. No murmurs, gallops or rub. ABDOMEN: Soft, nontender. Positive bowel sounds. EXTREMITIES: + left lower extremity foul-smelling with purple cyanosis of to his midcalf, + right lower extremity chronic venous stasis changes NEUROLOGIC EXAMINATION: Patient is awake, alert and oriented x3. ASSESSMENT 1. Coronary artery disease with reported 3 vessel disease 2. Ischemic cardiomyopathy ejection fraction 40-45% by most recent echo 3. Acute limb ischemia with nonhealing infected left foot 4. Questionable gangrene of left lower extremity with foul-smelling wound 5. Supratherapeutic INR 6. Typical atrial flutter, history of atrial fibrillation 7. Anemia 8. Tobacco abuse 9. Diabetes mellitus 10. PAD with plan for vascular revascularization 11. Chronic kidney disease, creatinine 2.19, 2.0 and unclear baseline PLAN Patient with complex medical problems. Patient with reported 3 vessel disease, ischemic cardiomyopathy as well as ischemic left lower extremity and nonhealing wound. Ideally coronary revascularization before vascular revascularization. Patient with increased INR at 3.85. We will give vitamin K for her anticipated possible heart catheterization or revascularization and may transition to heparin if overshoot INR. We will attempt to obtain baseline labs is unsure if this is a TIA. Continue with heart failure regimen as able. Patient appears euvolemic. Prognosis guarded. Past Medical History Past Medical History: Atrial Fibrillation, Diabetes Mellitus, Hyperlipidemia, Hypertension History of Any Multi-Drug Resistant Organisms: None Reported Past Surgical History: Heart Catheterization With Stent, Orthopedic Surgery Additional Past Surgical History / Comment(s): toe amputation, cataracts Past Anesthesia/Blood Transfusion Reactions: No Reported Reaction Date of Last Stent Placement:: 2015 Past Psychological History: No Psychological Hx Reported Smoking Status: Heavy tobacco smoker Past Alcohol Use History: Rare Past Drug Use History: None Reported - Past Family History Mother Family Medical History: Diabetes Mellitus Medications and Allergies Home Medications Medication Instructions Recorded Confirmed Type Atorvastatin [Lipitor] 40 mg PO DAILY 01/08/18 06/13/20 History Clopidogrel [Plavix] 75 mg PO DAILY 01/08/18 06/13/20 History Enalapril [Vasotec] 10 mg PO DAILY 01/08/18 06/13/20 History Warfarin [Coumadin] See Taper PO DAILY 01/08/18 06/13/20 History Amoxicillin/Potassium Clav 1 tab PO Q12H 06/13/20 06/13/20 History [Augmentin 875-125 Tablet] Aspirin EC [Ecotrin Low Dose] 81 mg PO DAILY 06/13/20 06/13/20 History Carvedilol [Coreg] 12.5 mg PO BID-W/MEALS 06/13/20 06/13/20 History Furosemide [Lasix] 20 mg PO DAILY 06/13/20 06/13/20 History HYDROcodone/APAP 10-325MG [[place] 1 tab PO Q4H PRN 06/13/20 06/13/20 History 10-325] Insulin Detemir (Levemir) [Levemir] 30 units SQ QAM 06/13/20 06/13/20 History Allergies Allergy/AdvReac Type Severity Reaction Status Date / Time No Known Allergies Allergy Verified 06/13/20 10:29 Physical Exam Vitals: Vital Signs Temp Pulse Resp BP Pulse Ox 06/14/20 14:00 98.3 F 67 17 120/73 99 06/14/20 08:14 16 06/14/20 08:13 97.8 F 06/14/20 08:04 75 18 111/61 94 L 06/14/20 01:31 98.1 F 66 120/74 96 06/13/20 20:00 16 06/13/20 19:56 98.4 F 62 119/80 96 Intake and Output 06/14/20 06/14/20 06/14/20 06:59 14:59 22:59 Other: Voiding Method Toilet Urinal # Voids 3 Results 06/14/20 06:41 06/14/20 06:41 Coagulation 06/14/20 Range/Units 06:41 PT 37.6 H (9.9-11.9) sec CBC 06/14/20 Range/Units 06:41 WBC 14.0 H (3.8-10.6) k/uL RBC 3.72 L (4.30-5.90) m/uL Hgb 10.1 L (13.0-17.5) gm/dL Hct 31.9 L (39.0-53.0) % Plt Count 421 (150-450) k/uL Comprehensive Metabolic Panel 06/14/20 Range/Units 06:41 Sodium 132 L (135-145) mmol/L Potassium 5.3 (3.5-5.5) mmol/L Chloride 109 (96-109) mmol/L Carbon Dioxide 21.8 (21.6-31.8) mmol/L BUN 47.0 H (9.0-27.0) mg/dL Creatinine 2.0 H (0.6-1.5) mg/dL Glucose 121 H (70-110) mg/dL Calcium 7.8 L (8.7-10.3) mg/dL Current Medications Generic Name Dose Route Start Last Admin Trade Name Freq PRN Reason Stop Dose Admin Acetaminophen 650 mg 06/13/20 09:33 Acetaminophen Tab 325 Mg Tab PO Q6HR PRN Mild Pain or Fever > 100.5 Hydrocodone Bitart/Acetaminophen 1 each 06/13/20 09:33 06/14/20 17:25 Hydrocodone/Apap 5-325mg 1 Each Tab PO 1 each Q4HR PRN Administration Moderate Pain Aspirin 81 mg 06/14/20 09:00 06/14/20 08:13 Aspirin 81 Mg PO 81 mg DAILY [facility] Administration Carvedilol 12.5 mg 06/13/20 17:30 06/14/20 17:25 Carvedilol 12.5 Mg Tab PO 12.5 mg BID-W/MEALS [facility] Administration Clopidogrel Bisulfate 75 mg 06/14/20 09:00 06/14/20 08:13 Clopidogrel 75 Mg Tab PO 75 mg DAILY [facility] Administration Furosemide 20 mg 06/14/20 09:00 06/14/20 08:22 Furosemide 20 Mg Tab PO 20 mg DAILY [facility] Administration Hydromorphone HCl 0.5 mg 06/13/20 09:33 06/14/20 07:29 Hydromorphone 0.5 Mg/0.5 Ml Syringe IVP 0.5 mg Q3HR PRN Administration Moderate Pain Hydromorphone HCl 1 mg 06/13/20 09:33 06/13/20 10:01 Hydromorphone 1 Mg/Ml 1 Ml Syringe IVP 1 mg Q3HR PRN Administration Severe Pain Sodium Chloride 1,000 mls @ 130 mls/hr 06/13/20 09:15 06/14/20 16:15 Saline 0.9% IV 130 mls/hr .Q7H42M [facility] Administration Daptomycin 500 mg/ Sodium 50 mls @ 100 mls/hr 06/13/20 16:00 06/14/20 15:29 Chloride IVPB 100 mls/hr Q24H [facility] Administration Protocol Piperacillin Sod/Tazobactam 100 mls @ 25 mls/hr 06/13/20 16:00 06/14/20 16:15 Sod 3.375 gm/ Sodium Chloride IVPB 25 mls/hr Q8HR [facility] Administration Insulin Aspart 0 unit 06/13/20 21:00 06/14/20 17:25 Insulin Aspart (Novolog) 100 Unit/Ml Vial SQ 1 unit ACHS [facility] Administration Protocol Insulin Detemir 30 unit 06/14/20 07:00 06/14/20 08:13 Insulin Detemir (Levemir) 100 Unit/Ml Syr SQ 30 unit DAILY@0700 [facility] Administration Miscellaneous Information 0 each 06/13/20 12:01 Warfarin Per Pharmacy MISCELLANE DIRECTED PRN ANTICOAG Naloxone HCl 0.2 mg 06/13/20 09:33 Naloxone 0.4 Mg/Ml 1 Ml Vial IV Q2M PRN Opioid Reversal Pantoprazole Sodium 40 mg 06/14/20 09:00 06/14/20 10:07 Pantoprazole 40 Mg/10 Ml Vial IV 40 mg DAILY [facility] Administration Intake and Output 06/14/20 06/14/20 06/14/20 06:59 14:59 22:59 Other: Voiding Method Toilet Urinal # Voids 3 06/14/20 06:41 06/14/20 06:41
[2020-06-14] MEDS ORDERED: PHYTONADIONE ORAL 5 MG/5 ML ORAL.SYRG PO STA (19:37)
[2020-06-14 21:07] LABS: Glucose,Whole Blood 119 mg/dL (75-99)
--- NOTE | 2020-06-14 21:59 | PN ---
PROGRESS NOTE DATE OF SERVICE: 06/14/2020 REASON FOR FOLLOWUP: Left foot gangrene and concern for secondary infection. INTERVAL HISTORY: The patient is currently afebrile. Patient is breathing comfortably. Denies having any chest pain. No shortness of breath or cough. Pain to the left foot is currently controlled. No abdominal pain. No diarrhea. PHYSICAL EXAMINATION: Blood pressure is 110/72 with a pulse of 67. Temperature is 97.8. He is 96% on room air. General description is an elderly male lying in bed, slightly elderly male lying in bed in no distress. Respiratory system: Unlabored breathing. Clear to auscultation anteriorly. Heart S1, S2. Regular rate and rhythm. Abdomen soft, no tenderness. Left foot is currently dressed up. LABS: Hemoglobin is 10.3, white count 14,000, creatinine is 2.0. DIAGNOSTIC IMPRESSION AND PLAN: Patient with left diabetic foot wound with concern for underlying gangrene as severe peripheral arterial disease in this patient who continues to smoke, admitted to the hospital for coronary intervention followed by left leg amputation. Patient is covered with daptomycin, Zosyn, cultures will be followed. Monitor clinical course closely. MMODL / IJN: [id number] /
[2020-06-15] MEDS: HYDROmorphone 0.5 MG/0.5 ML SYRINGE IVP PRN ×2 (05:50→08:30)
[2020-06-15 06:47] LABS: Basophils % (A) 0 %; Eosinophils # (A) 0.1 k/uL (0-0.7); Eosinophils % (A) 1 %; HCT 34.8 % (39.0-53.0); HGB 10.5 gm/dL (13.0-17.5); Hypochromasia Marked; Lymphocytes # (A) 0.7 k/uL (1.0-4.8); Lymphocytes % (A) 5 %; MCH 26.5 pg (25.0-35.0); MCHC 30.1 g/dL (31.0-37.0); Mean Platelet Volume 7.2; Monocytes # (A) 0.4 k/uL (0-1.0); Monocytes % (A) 3 %; Neutrophils # (A) 12.4 k/uL (1.3-7.7); Neutrophils % (A) 90 %; Platelet Count 402 k/uL (150-450); Poikilocytosis Slight; RBC 3.96 m/uL (4.30-5.90); RDW 15.4 % (11.5-15.5); WBC 13.8 k/uL (3.8-10.6)
[2020-06-15 07:05] LABS: Glucose,Whole Blood 92 mg/dL (75-99)
[2020-06-15] MEDS: CLOPIDOGREL 75 MG TAB PO SCH (08:09)
[2020-06-15] MEDS: SODIUM CHLORIDE 0.9% 1,000 ML IV SCH ×3 (08:09→23:57)
[2020-06-15] MEDS: PIPERACILLIN-TAZOBACTAM 3.375 GM in SODIUM CHLORIDE 0.9% 100 ML IVPB SCH ×2 (08:09→17:08)
[2020-06-15] MEDS: carvediloL 12.5 MG TAB PO SCH ×2 (08:09→17:08)
[2020-06-15] MEDS: ASPIRIN 81 MG PO SCH (08:09)
[2020-06-15] MEDS: FUROSEMIDE 20 MG TAB PO SCH (08:09)
[2020-06-15] MEDS: INSULIN ASPART (NovoLOG) 100 UNIT/ML VIAL SQ SCH ×4 (08:09→21:39)
[2020-06-15] MEDS: PANTOPRAZOLE 40 MG/10 ML VIAL IV SCH (08:10)
[2020-06-15] MEDS: INSULIN DETEMIR (LEVEMIR) 100 UNIT/ML SYR SQ SCH (08:20)
[2020-06-15 09:25] LABS: African American GFR (CKD) 39.1 (60.0-200.0); Anion Gap 7.7 mmol/L (4.00-12.00); BUN/Creat Ratio 21.5 Ratio (12.00-20.00); Carbon Dioxide 23.3 mmol/L (21.6-31.8); Non-African American GFR(CKD) 33.8 (60.0-200.0); Potassium 4.7 mmol/L (3.5-5.5)
[2020-06-15 09:47] LABS: INR 2.4 (0.90-1.11); Prothrombin Time 24.3 sec (9.9-11.9)
--- NOTE | 2020-06-15 11:23 | P.PN ---
Subjective This is a pleasant 65 years old male with past medical history of diabetes mellitus, hyperlipidemia, hypertension, atrial fibrillation on Coumadin. He is a patient of Dr. Lambert and was sent by his surgeon Dr. Fox to the hospital for gangrenous left foot, patient could not service 54 hole long is suffering from this problem except for a long time it was slowly progressive. Currently his left foot looks like as well as the distal part of the leg with area of fluctuation and discoloration. Patient has been sent to the hospital by his vascular surgeon Dr. Fox recommended also vascular intervention by undergraduate intern Dr. Gaston for internal and external iliac artery disease Vitals looks stable. Labs showed leukocytosis with 16.0 K, hemoglobin 11.4, platelet 5.5. INR is 2.7. Potassium 5.6, creatinine 2.19, unknown baseline EKG showing atrial fibrillation at a rate of 88 with QTC of 510, left foot x-ray showing osteomyelitis with possible gas-forming organisms within the soft tissue, correlate for cellulitis, possible myositis an abscess Lactic acid is 2.3. Liver enzymes not elevated On admission patient was started on Unasyn and IV vancomycin Consult was placed for Dr. Gaston, infectious disease team and Dr. Omer on admission patient 06/14/2020 Patient admitted with left foot gangrene, no marked change in his clinical picture, Vitas looks stable and patient is afebrile. Leukocytosis improved to 14 K. Sugar is controlled and lactic acid is back to normal. BMP is pending because his and send out test Vascular Surgery and infectious disease on the case. Fashion Photographer consult is pending 06/15/2020 Patient with left foot and possible distal leg gangrene, stable with no proximal progression compared to the last couple days, dressing is in place. Patient looks comfortable, not in distress, fully awake and oriented, he denies chest pain or dyspnea. Or any other complaints. He is hemodynamically stable. WBC t rending down to 13.8 K, INR is trended down to 2.4, while his Coumadin is held since admission. Creatinine is stable at 2.0 since admission. He is on broad-spectrum antibiotics DAPTOMYCIN and Zosyn as per ID team. Vascular surgery team are planning for debridement and amputation of the dictation cardiology input is appreciated, they recommended cardiac cath prior to lower extremity renovascular patient surgery, however high INR is not recommended, so vitamin K is a provided and patient may be bridged with heparin infusion length subtherapeutic INR. Objective - Vital Signs Vital signs: Vital Signs Temp 98.2 F 06/15/20 07:48 Pulse 67 06/15/20 08:00 Resp 16 06/15/20 08:00 BP 144/84 06/15/20 07:48 Pulse Ox 99 06/15/20 07:48 Intake & Output 06/14/20 06/15/20 06/15/20 18:59 06:59 18:59 Other: Voiding Method Toilet Toilet Toilet Urinal Urinal Urinal # Voids 3 - Exam GENERAL: The patient is alert and oriented x3, not in any acute distress. Well developed, well nourished. HEENT: Pupils are round and equally reacting to light. EOMI. No scleral icterus. No conjunctival pallor. Normocephalic, atraumatic. No pharyngeal erythema. No thyromegaly. CARDIOVASCULAR: S1 and S2 present. No murmurs, rubs, or gallops. PULMONARY: Chest is clear to auscultation, no wheezing or crackles. ABDOMEN: Soft, nontender, nondistended, normoactive bowel sounds. No palpable organomegaly. MUSCULOSKELETAL: No joint swelling or deformity. -EXTREMITIES: No cyanosis, clubbing, or pedal edema. Left foot is black, painless, looks infected with area of fluctuation abscess especially on the lateral side, his gangrene looks extending into the distal left leg NEUROLOGICAL: Gross neurological examination did not reveal any focal deficits. SKIN: No rashes. No petechiae - Labs CBC & Chem 7: 06/15/20 06:13 06/15/20 06:13 Labs: Abnormal Lab Results - Last 24 Hours (Table) 06/14/20 06/14/20 06/14/20 Range/Units 06:41 11:17 16:48 WBC (3.8-10.6) k/uL RBC (4.30-5.90) m/uL Hgb (13.0-17.5) gm/dL Hct (39.0-53.0) % MCHC (31.0-37.0) g/dL Neutrophils # (1.3-7.7) k/uL Lymphocytes # (1.0-4.8) k/uL PT (9.9-11.9) sec INR (0.90-1.11) Sodium 132 L (135-145) mmol/L Anion Gap 1.20 L (4.00-12.00) mmol/L BUN 47.0 H (9.0-27.0) mg/dL Creatinine 2.0 H (0.6-1.5) mg/dL Est GFR (CKD-EPI)AfAm 39.1 L (60.0-200.0) Est GFR (CKD-EPI)NonAf 33.8 L (60.0-200.0) BUN/Creatinine Ratio 23.50 H (12.00-20.00) Ratio Glucose 121 H (70-110) mg/dL POC Glucose (mg/dL) 202 H 148 H (75-99) mg/dL Calcium 7.8 L (8.7-10.3) mg/dL 06/14/20 06/15/20 06/15/20 Range/Units 21:04 06:13 06:13 WBC 13.8 H (3.8-10.6) k/uL RBC 3.96 L (4.30-5.90) m/uL Hgb 10.5 L (13.0-17.5) gm/dL Hct 34.8 L (39.0-53.0) % MCHC 30.1 L (31.0-37.0) g/dL Neutrophils # 12.4 H (1.3-7.7) k/uL Lymphocytes # 0.7 L (1.0-4.8) k/uL PT 24.3 H (9.9-11.9) sec INR 2.40 H (0.90-1.11) Sodium (135-145) mmol/L Anion Gap (4.00-12.00) mmol/L BUN (9.0-27.0) mg/dL Creatinine (0.6-1.5) mg/dL Est GFR (CKD-EPI)AfAm (60.0-200.0) Est GFR (CKD-EPI)NonAf (60.0-200.0) BUN/Creatinine Ratio (12.00-20.00) Ratio Glucose (70-110) mg/dL POC Glucose (mg/dL) 119 H (75-99) mg/dL Calcium (8.7-10.3) mg/dL 06/15/20 Range/Units 06:13 WBC (3.8-10.6) k/uL RBC (4.30-5.90) m/uL Hgb (13.0-17.5) gm/dL Hct (39.0-53.0) % MCHC (31.0-37.0) g/dL Neutrophils # (1.3-7.7) k/uL Lymphocytes # (1.0-4.8) k/uL PT (9.9-11.9) sec INR (0.90-1.11) Sodium (135-145) mmol/L Anion Gap (4.00-12.00) mmol/L BUN 43.0 H (9.0-27.0) mg/dL Creatinine 2.0 H (0.6-1.5) mg/dL Est GFR (CKD-EPI)AfAm 39.1 L (60.0-200.0) Est GFR (CKD-EPI)NonAf 33.8 L (60.0-200.0) BUN/Creatinine Ratio 21.50 H (12.00-20.00) Ratio Glucose (70-110) mg/dL POC Glucose (mg/dL) (75-99) mg/dL Calcium 8.0 L (8.7-10.3) mg/dL Microbiology - Last 24 Hours (Table) 06/13/20 09:38 Blood Culture - Preliminary Blood No Growth after 24 hours 06/13/20 09:38 Blood Culture - Preliminary Blood No Growth after 24 hours Assessment and Plan Assessment: Gangrene of the left foot, x-rays suspicious for cellulitis, myositis or an abscess with possible osteomyelitis and gas-forming organisms in the soft tissue Acute kidney injury with hyperkalemia coronary artery disease, triple coronary artery disease status post cardiac cath . Cardiac cath is recommended Peripheral vascular disease, need a vascular since surgery after cardiac cath. Diabetes mellitus Elevated lactic acid Hyperlipidemia Hypertension Chronic atrial fibrillation on Coumadin Plan: This is a pleasant 65 years old male who presents with gangrenous left foot. Continue with antibiotics and follow-up recommendation of infectious disease team. Also undergraduate intern and vascular surgeon on the case. Continue with gentle hydration on follow-up creatinine. Hold vasotec, Consult nephrology team. Pain management Fashion Photographer recommended cardiac cath to be followed by lower extremity vascular surgery Labs and medication were reviewed.. Continue same treatment. Continue with symptomatic treatment. Resume home medication. Monitor lytes and vitals. DVT and GI prophylaxis. Further recommendations depends on the clinical course of the patient DVT prophylaxis: Warfarin, on hold. High INR GI Prophylaxis: Ppi PT/OT: Pending Prognosis is guarded
[2020-06-15] MEDS: HYDROcodone/APAP 5-325MG 1 EACH TAB PO PRN (11:36)
[2020-06-15 11:38] LABS: Glucose,Whole Blood 175 mg/dL (75-99)
--- NOTE | 2020-06-15 12:20 | P.PN ---
Subjective HISTORY OF PRESENTING ILLNESS This is a pleasant 65-year-old male past medical history significant for coronary artery disease status post PCI to the circumflex in 2003, PAD, persistent atrial fibrillation on coumadin, hypertension, dyslipidemia and tobacco abuse. He follows in the office with Dr. Craft. He is seen and examined resting comfortably in bed in no acute distress. He denies symptoms of shortness of breath, chest pain, dizziness or palpitations. Blood pressure 144/84 heart rate 67 afebrile and maintaining oxygen saturation on room air. Laboratory data reviewed, WBC 13.8, hemoglobin 10.5, platelets 402, INR 2.4, sodium 137, potass ium 4.7, creatinine 2.0. Currently maintained on aspirin 81 mg daily, carvedilol 12.5 mg twice a day, Plavix 75 mg daily, Lasix 20 mg by mouth daily. Coumadin on hold. Cardiac catheterization performed June 05 at [facility] reveals RCA with severe disease, left main angiographically normal, circumflex approximately has a lesion in the range of 60-70%, mid lesion range of 50% by the bifurcation of the second OM which also has a tight lesion, mid to distal lesion 95%, LAD proximal mild disease only, mid LAD has a long tubular lesion in the range of 80-90% distally appears angiographically normal. The first diagonal branch is severely diseased, second diagonal branch also with significant disease. Authorization performed PHYSICAL EXAMINATION CONSTITUTIONAL: No apparent distress, chronically ill-appearing. Appears older than stated age. HEENT: Head is normocephalic. Pupils are equal, round. Sclerae anicteric. Mucous membranes of the mouth are moist. No JVD. No carotid bruit. CHEST EXAMINATION: Expiratory wheezes, no rales or rhonchi. HEART EXAMINATION: Irregular rate and rhythm. S1, S2 heard. No murmurs, gallops or rub. EXTREMITIES: + left lower extremity foul-smelling with purple cyanosis of to his midcalf, + right lower extremity chronic venous stasis changes and toe amputations ASSESSMENT Coronary artery disease with reported [address] surgery evaluation. Ischemic cardiomyopathy ejection fraction 40-45% Acute limb ischemia with non-healing infected left foot Questionable gangrene of left lower extremity with foul-smelling wound Supratherapeutic INR Leukocytosis Typical atrial flutter, history of atrial fibrillation on coumadin Anemia Tobacco abuse Diabetes mellitus PAD with plan for vascular revascularization and right toe amputations Chronic kidney disease PLAN Continue to hold Coumadin. Request CT surgery evaluation. Further recommendations to follow based upon clinical course. Nurse Practitioner note has been reviewed, I agree with a documented findings and plan of care. Patient was seen and examined. Objective - Vital Signs Vital signs: Vital Signs Temp 98.2 F 06/15/20 07:48 Pulse 67 06/15/20 08:00 Resp 16 06/15/20 08:00 BP 144/84 06/15/20 07:48 Pulse Ox 99 06/15/20 07:48 Intake & Output 06/14/20 06/15/20 06/15/20 18:59 06:59 18:59 Other: Voiding Method Toilet Toilet Toilet Urinal Urinal Urinal # Voids 3 - Labs CBC & Chem 7: 06/15/20 06:13 06/15/20 06:13 Labs: Abnormal Lab Results - Last 24 Hours (Table) 06/14/20 06/14/20 06/14/20 Range/Units 06:41 11:17 16:48 WBC (3.8-10.6) k/uL RBC (4.30-5.90) m/uL Hgb (13.0-17.5) gm/dL Hct (39.0-53.0) % MCHC (31.0-37.0) g/dL Neutrophils # (1.3-7.7) k/uL Lymphocytes # (1.0-4.8) k/uL PT (9.9-11.9) sec INR (0.90-1.11) Sodium 132 L (135-145) mmol/L Anion Gap 1.20 L (4.00-12.00) mmol/L BUN 47.0 H (9.0-27.0) mg/dL Creatinine 2.0 H (0.6-1.5) mg/dL Est GFR (CKD-EPI)AfAm 39.1 L (60.0-200.0) Est GFR (CKD-EPI)NonAf 33.8 L (60.0-200.0) BUN/Creatinine Ratio 23.50 H (12.00-20.00) Ratio Glucose 121 H (70-110) mg/dL POC Glucose (mg/dL) 202 H 148 H (75-99) mg/dL Calcium 7.8 L (8.7-10.3) mg/dL 06/14/20 06/15/20 06/15/20 Range/Units 21:04 06:13 06:13 WBC 13.8 H (3.8-10.6) k/uL RBC 3.96 L (4.30-5.90) m/uL Hgb 10.5 L (13.0-17.5) gm/dL Hct 34.8 L (39.0-53.0) % MCHC 30.1 L (31.0-37.0) g/dL Neutrophils # 12.4 H (1.3-7.7) k/uL Lymphocytes # 0.7 L (1.0-4.8) k/uL PT 24.3 H (9.9-11.9) sec INR 2.40 H (0.90-1.11) Sodium (135-145) mmol/L Anion Gap (4.00-12.00) mmol/L BUN (9.0-27.0) mg/dL Creatinine (0.6-1.5) mg/dL Est GFR (CKD-EPI)AfAm (60.0-200.0) Est GFR (CKD-EPI)NonAf (60.0-200.0) BUN/Creatinine Ratio (12.00-20.00) Ratio Glucose (70-110) mg/dL POC Glucose (mg/dL) 119 H (75-99) mg/dL Calcium (8.7-10.3) mg/dL 06/15/20 Range/Units 06:13 WBC (3.8-10.6) k/uL RBC (4.30-5.90) m/uL Hgb (13.0-17.5) gm/dL Hct (39.0-53.0) % MCHC (31.0-37.0) g/dL Neutrophils # (1.3-7.7) k/uL Lymphocytes # (1.0-4.8) k/uL PT (9.9-11.9) sec INR (0.90-1.11) Sodium (135-145) mmol/L Anion Gap (4.00-12.00) mmol/L BUN 43.0 H (9.0-27.0) mg/dL Creatinine 2.0 H (0.6-1.5) mg/dL Est GFR (CKD-EPI)AfAm 39.1 L (60.0-200.0) Est GFR (CKD-EPI)NonAf 33.8 L (60.0-200.0) BUN/Creatinine Ratio 21.50 H (12.00-20.00) Ratio Glucose (70-110) mg/dL POC Glucose (mg/dL) (75-99) mg/dL Calcium 8.0 L (8.7-10.3) mg/dL Microbiology - Last 24 Hours (Table) 06/13/20 09:38 Blood Culture - Preliminary Blood No Growth after 24 hours 06/13/20 09:38 Blood Culture - Preliminary Blood No Growth after 24 hours
[2020-06-15] MEDS ORDERED: PHYTONADIONE ORAL 5 MG/5 ML ORAL.SYRG PO STA (14:07)
--- NOTE | 2020-06-15 14:11 | P.PN ---
Progress Note - Text 65-year-old gentleman, history of peripheral vascular disease, history of coronary artery disease patient has history of A. fib Coumadin has been held he is on Plavix his PT is 24.3 INR is 2.40. Patient was seen by the cardiac surgeon and cardiology patient has a wet gangrene of the left foot patient needs a coronary artery bypass patient had a three-vessel occlusive disease. Plan is discussed with cardiac cardiology and cardiac surgeons recommend to have a disarticulation of the left foot and then we will proceed for coronary artery bypass after that patient will need left iliac and direct me this patch angioplasty with the total occlusion of the left external iliac artery and profunda is not visualized discussed with the patient all the risk and complication discussed patient understands we will proceed this afternoon
[2020-06-15] MEDS: HYDROmorphone 1 MG/ML 1 ML SYRINGE IVP PRN (14:37)
--- NOTE | 2020-06-15 14:37 | P.PN ---
Subjective Progress Note Date: 06/15/20 HISTORY OF PRESENT ILLNESS This is a 65-year-old male treated for left foot gangrene and concern for secondary infection due to severe peripheral arterial disease. Patient denies having any fever or chills. No chest pain. No shortness of breath or cough. Patient has wet gangrene of the left foot and area is cool to the touch. Patient needs a coronary artery bypass for three-vessel disease. Plan is for disarticulation of the left foot and then proceed with coronary artery bypass graft PHYSICAL EXAMINATION Gen: This is a 65-year-old female HEENT: Head is atraumatic, normocephalic. Pupils equal, round. Sclerae is anicteric. NECK: Supple. No JVD. No lymphadenopathy. LUNGS: Clear to auscultation. No wheezes or rhonchi. No intercostal retractions. HEART: Regular rate and rhythm. No murmur. ABDOMEN: Soft. Bowel sounds are present. No masses. No tenderness. EXTREMITIES: Resting to the left foot with distal wet gangrene changes, follow over. Distal foot is cool to touch. NEUROLOGICAL: Patient is awake, alert and oriented x3. ASSESSMENT Left foot wet gangrene Severe peripheral artery disease Ischemia left lower extremity Triple-vessel coronary artery disease PLAN Continue daptomycin 500 mg IV piggyback daily Continue Zosyn 3.375 g IV piggyback every 8 hours The above dictated assessment and findings were discussed with Dr. Jason. The impression and plan of care have been directed as dictated. Barb Melara nurse practitioner acting as scribe for Dr. Jason. Objective - Vital Signs Vital signs: Vital Signs Temp 98.2 F 06/15/20 07:48 Pulse 67 06/15/20 08:00 Resp 16 06/15/20 08:00 BP 144/84 06/15/20 07:48 Pulse Ox 99 06/15/20 07:48 Intake & Output 06/14/20 06/15/20 06/15/20 18:59 06:59 18:59 Other: Voiding Method Toilet Toilet Toilet Urinal Urinal Urinal # Voids 3 - Labs CBC & Chem 7: 06/15/20 06:13 06/15/20 06:13 Labs: Abnormal Lab Results - Last 24 Hours (Table) 06/14/20 06/14/20 06/14/20 Range/Units 06:41 11:17 16:48 WBC (3.8-10.6) k/uL RBC (4.30-5.90) m/uL Hgb (13.0-17.5) gm/dL Hct (39.0-53.0) % MCHC (31.0-37.0) g/dL Neutrophils # (1.3-7.7) k/uL Lymphocytes # (1.0-4.8) k/uL PT (9.9-11.9) sec INR (0.90-1.11) Sodium 132 L (135-145) mmol/L Anion Gap 1.20 L (4.00-12.00) mmol/L BUN 47.0 H (9.0-27.0) mg/dL Creatinine 2.0 H (0.6-1.5) mg/dL Est GFR (CKD-EPI)AfAm 39.1 L (60.0-200.0) Est GFR (CKD-EPI)NonAf 33.8 L (60.0-200.0) BUN/Creatinine Ratio 23.50 H (12.00-20.00) Ratio Glucose 121 H (70-110) mg/dL POC Glucose (mg/dL) 202 H 148 H (75-99) mg/dL Calcium 7.8 L (8.7-10.3) mg/dL 06/14/20 06/15/20 06/15/20 Range/Units 21:04 06:13 06:13 WBC 13.8 H (3.8-10.6) k/uL RBC 3.96 L (4.30-5.90) m/uL Hgb 10.5 L (13.0-17.5) gm/dL Hct 34.8 L (39.0-53.0) % MCHC 30.1 L (31.0-37.0) g/dL Neutrophils # 12.4 H (1.3-7.7) k/uL Lymphocytes # 0.7 L (1.0-4.8) k/uL PT 24.3 H (9.9-11.9) sec INR 2.40 H (0.90-1.11) Sodium (135-145) mmol/L Anion Gap (4.00-12.00) mmol/L BUN (9.0-27.0) mg/dL Creatinine (0.6-1.5) mg/dL Est GFR (CKD-EPI)AfAm (60.0-200.0) Est GFR (CKD-EPI)NonAf (60.0-200.0) BUN/Creatinine Ratio (12.00-20.00) Ratio Glucose (70-110) mg/dL POC Glucose (mg/dL) 119 H (75-99) mg/dL Calcium (8.7-10.3) mg/dL 06/15/20 Range/Units 06:13 WBC (3.8-10.6) k/uL RBC (4.30-5.90) m/uL Hgb (13.0-17.5) gm/dL Hct (39.0-53.0) % MCHC (31.0-37.0) g/dL Neutrophils # (1.3-7.7) k/uL Lymphocytes # (1.0-4.8) k/uL PT (9.9-11.9) sec INR (0.90-1.11) Sodium (135-145) mmol/L Anion Gap (4.00-12.00) mmol/L BUN 43.0 H (9.0-27.0) mg/dL Creatinine 2.0 H (0.6-1.5) mg/dL Est GFR (CKD-EPI)AfAm 39.1 L (60.0-200.0) Est GFR (CKD-EPI)NonAf 33.8 L (60.0-200.0) BUN/Creatinine Ratio 21.50 H (12.00-20.00) Ratio Glucose (70-110) mg/dL POC Glucose (mg/dL) (75-99) mg/dL Calcium 8.0 L (8.7-10.3) mg/dL Microbiology - Last 24 Hours (Table) 06/13/20 09:38 Blood Culture - Preliminary Blood No Growth after 24 hours 06/13/20 09:38 Blood Culture - Preliminary Blood No Growth after 24 hours
--- NOTE | 2020-06-15 15:08 | P.GSCN ---
<Ifeoma Navarro - Last Filed: 06/15/20 15:06> History of Present Illness Consult date: 06/15/20 Reason for Consult: Triple vessel coronary artery disease Requesting physician: Satish Johnson History of present illness: This is a 65 year old inactive gentleman who follows on an outpatient basis with Dr. Carlos for primary care and Dr. Loza for PAD and critical limb ischemia of the left foot. He has a previous medical history of coronary artery disease with stenting to the circumflex, ischemic cardiomyopathy with EF 40-45%, HTN, chronic atrial fibrillation on Coumadin for anticoagulation, PAD with occluded left iliac/femoral artery and chronic lower extremity arterial wounds, CKD, and current heavy tobacco dependance. He had a stress test for preoperative clearance for lower extremity endarterectomy which was abnormal with fixed de fect with akinesia of the inferior wall. He was recommended to undergo heart catheterization which was completed at [facility] by Dr. Craft on 06/05/2020 which demonstrated severe disease in the right coronary artery, dominant left circumflex with proximal disease 60-70%, mid disease 50%, distal left circumflex with 95% stenosis, as well as long tubular lesion in the mid LAD in the range of 80-90%. The plans was for the patient to follow-up with cardiothoracic surgery and an outpatient basis for recommendations regarding surgical revascularization. Unfortunately this gentleman presented to [facility] emergency room at the request of Dr. Loza secondary to malodorous left lower extremity wound with concern for infection. He denied any fever or chills, chest pain or shortness of breath, his only complaint was of lack of activity due to extreme pain in his left leg description consistent with claudication. He had a foot x-ray in the emergency room consistent with osteomyelitis, possible gas forming organisms. WBC 16.0, INR 2.7, creatinine 2.19, lactic acid 2.3 on admission. The patient was initiated on IV antibiotics and admitted with consultation placed to Dr. Loza, cardiology, and infectious disease. Due to his known history of coronary artery disease Dr. Lopez from cardiac surgery was consulted for surgical revascularization recommendations. Review of Systems Review of systems was completed and was negative except as noted Past Medical History Past Medical History: Atrial Fibrillation, Coronary Artery Disease (CAD), COPD, Diabetes Mellitus, Hyperlipidemia, Hypertension, Renal Disease Additional Past Medical History / Comment(s): PAD History of Any Multi-Drug Resistant Organisms: None Reported Past Surgical History: Heart Catheterization With Stent, Orthopedic Surgery Additional Past Surgical History / Comment(s): toe amputation, cataracts Past Anesthesia/Blood Transfusion Reactions: No Reported Reaction Date of Last Stent Placement:: 2015 Past Psychological History: No Psychological Hx Reported Smoking Status: Heavy tobacco smoker Past Alcohol Use History: Rare Past Drug Use History: None Reported - Past Family History Mother Family Medical History: Diabetes Mellitus Medications and Allergies Home Medications Medication Instructions Recorded Confirmed Type Atorvastatin [Lipitor] 40 mg PO DAILY 01/08/18 06/13/20 History Clopidogrel [Plavix] 75 mg PO DAILY 01/08/18 06/13/20 History Enalapril [Vasotec] 10 mg PO DAILY 01/08/18 06/13/20 History Warfarin [Coumadin] See Taper PO DAILY 01/08/18 06/13/20 History Amoxicillin/Potassium Clav 1 tab PO Q12H 06/13/20 06/13/20 History [Augmentin 875-125 Tablet] Aspirin EC [Ecotrin Low Dose] 81 mg PO DAILY 06/13/20 06/13/20 History Carvedilol [Coreg] 12.5 mg PO BID-W/MEALS 06/13/20 06/13/20 History Furosemide [Lasix] 20 mg PO DAILY 06/13/20 06/13/20 History HYDROcodone/APAP 10-325MG [[place] 1 tab PO Q4H PRN 06/13/20 06/13/20 History 10-325] Insulin Detemir (Levemir) [Levemir] 30 units SQ QAM 06/13/20 06/13/20 History Allergies Allergy/AdvReac Type Severity Reaction Status Date / Time No Known Allergies Allergy Verified 06/15/20 17:12 Surgical - Exam Vital Signs Temp Pulse Resp BP Pulse Ox 98.1 F 83 16 111/79 95 06/13/20 10:03 06/13/20 10:03 06/13/20 10:03 06/13/20 10:03 06/13/20 10:03 - General well developed, well nourished, no distress, moderate pain, chronically ill - Eyes normal ocular movement - ENT no hearing loss - Neck no masses, no bruits, trachea midline - Respiratory Lungs sounds diminished bilaterally with x-ray wheezes present. Respirations even, nonlabored. Currently on room air with oxygen saturation 96%. - Cardiovascular S1, S2 present. Irregular rate and rhythm. Absent left lower extremity pulses, left lower extremity cool to touch - Abdomen Abdomen: soft, non tender, bowel sounds - Genitourinary Deferred - Rectum Deferred - Integumentary Left lower extremity very foul smelling, wrapped with dressing. Skin is cool to touch and cyanotic appearing. Pitcher in chart. Right lower extremity with chronic venous stasis changes - Neurologic normal coordination - Musculoskeletal normal posture - Psychiatric oriented to time, oriented to person, oriented to place, speech is normal, memory intact Results - Labs 06/15/20 06:13 06/15/20 06:13 Abnormal Lab Results - Last 24 Hours (Table) 06/14/20 06/14/20 06/15/20 Range/Units 16:48 21:04 06:13 WBC 13.8 H (3.8-10.6) k/uL RBC 3.96 L (4.30-5.90) m/uL Hgb 10.5 L (13.0-17.5) gm/dL Hct 34.8 L (39.0-53.0) % MCHC 30.1 L (31.0-37.0) g/dL Neutrophils # 12.4 H (1.3-7.7) k/uL Lymphocytes # 0.7 L (1.0-4.8) k/uL PT (9.9-11.9) sec INR (0.90-1.11) BUN (9.0-27.0) mg/dL Creatinine (0.6-1.5) mg/dL Est GFR (CKD-EPI)AfAm (60.0-200.0) Est GFR (CKD-EPI)NonAf (60.0-200.0) BUN/Creatinine Ratio (12.00-20.00) Ratio POC Glucose (mg/dL) 148 H 119 H (75-99) mg/dL Calcium (8.7-10.3) mg/dL 06/15/20 06/15/20 06/15/20 Range/Units 06:13 06:13 11:37 WBC (3.8-10.6) k/uL RBC (4.30-5.90) m/uL Hgb (13.0-17.5) gm/dL Hct (39.0-53.0) % MCHC (31.0-37.0) g/dL Neutrophils # (1.3-7.7) k/uL Lymphocytes # (1.0-4.8) k/uL PT 24.3 H (9.9-11.9) sec INR 2.40 H (0.90-1.11) BUN 43.0 H (9.0-27.0) mg/dL Creatinine 2.0 H (0.6-1.5) mg/dL Est GFR (CKD-EPI)AfAm 39.1 L (60.0-200.0) Est GFR (CKD-EPI)NonAf 33.8 L (60.0-200.0) BUN/Creatinine Ratio 21.50 H (12.00-20.00) Ratio POC Glucose (mg/dL) 175 H (75-99) mg/dL Calcium 8.0 L (8.7-10.3) mg/dL Microbiology - Last 24 Hours (Table) 06/13/20 09:38 Blood Culture - Preliminary Blood No Growth after 48 hours 06/13/20 09:38 Blood Culture - Preliminary Blood No Growth after 48 hours Diabetes panel 06/15/20 Range/Units 06:13 Sodium 137 (135-145) mmol/L Potassium 4.7 (3.5-5.5) mmol/L Chloride 106 (96-109) mmol/L Carbon Dioxide 23.3 (21.6-31.8) mmol/L BUN 43.0 H (9.0-27.0) mg/dL Creatinine 2.0 H (0.6-1.5) mg/dL Glucose 83 (70-110) mg/dL Calcium 8.0 L (8.7-10.3) mg/dL Calcium panel 06/15/20 Range/Units 06:13 Calcium 8.0 L (8.7-10.3) mg/dL Pituitary panel 06/15/20 Range/Units 06:13 Sodium 137 (135-145) mmol/L Potassium 4.7 (3.5-5.5) mmol/L Chloride 106 (96-109) mmol/L Carbon Dioxide 23.3 (21.6-31.8) mmol/L BUN 43.0 H (9.0-27.0) mg/dL Creatinine 2.0 H (0.6-1.5) mg/dL Glucose 83 (70-110) mg/dL Calcium 8.0 L (8.7-10.3) mg/dL Adrenal panel 06/15/20 Range/Units 06:13 Sodium 137 (135-145) mmol/L Potassium 4.7 (3.5-5.5) mmol/L Chloride 106 (96-109) mmol/L Carbon Dioxide 23.3 (21.6-31.8) mmol/L BUN 43.0 H (9.0-27.0) mg/dL Creatinine 2.0 H (0.6-1.5) mg/dL Glucose 83 (70-110) mg/dL Calcium 8.0 L (8.7-10.3) mg/dL - Imaging Additional studies: Heart catheterization films from [facility] uploaded and reviewed with Dr. Lopez Assessment and Plan Assessment: 1. Triple-vessel coronary artery disease with previous stenting to the circumflex 2. PAD with critical limb ischemia of the left foot, occluded left iliac/femo ral artery, nonhealing infected gangrenous left foot 3. Ischemic cardiomyopathy with EF 40-45% 4. Hypertension 5. Chronic atrial fibrillation on Coumadin for anticoagulation 6. Chronic kidney disease 7. Current heavy tobacco dependence 8. Insulin-dependent diabetes mellitus 9. Lactic acidosis on admission Plan: The patient was seen and examined with Dr. Lopez. Chart/diagnostics were reviewed. The patient remains chest pain free. The case was discussed in d etail between Dr. Lopez, Dr. Johnson, and Dr. Fox. At this time our recommendation is for amputation of the left foot followed by IV antibiotics and recovery from infection. The patient is not a cardiac surgery candidate at this time as he would be extremely high risk. Once he has recovered from his amputation and infection discussion can take place regarding revascularization of left iliac artery as well as coronary artery revascularization. Recommend continuing aspirin, statin, Plavix, beta radha therapy. Reintroduce Coumadin when okay with vascular surgery and cardiology. Our recommendations were discussed at length with the patient by Dr. Lopez. We also strongly recommended smoking cessation. Continue medical management per primary care, cardiology, vascular surgery and infectious disease. Please call us with any further questions. Thank you Dr. Johnson for this consult. Time with Patient: Greater than 30 <AzoKj barbour - Last Filed: 06/19/20 10:55> Surgical - Exam Vital Signs Temp Pulse Resp BP Pulse Ox 98.1 F 83 16 111/79 95 06/13/20 10:03 06/13/20 10:03 06/13/20 10:03 06/13/20 10:03 06/13/20 10:03 Results - Labs 06/17/20 06:35 06/19/20 05:46 Abnormal Lab Results - Last 24 Hours (Table) 06/18/20 06/18/20 06/18/20 Range/Units 12:54 16:41 20:30 PT (9.9-11.9) sec INR (0.90-1.11) BUN (9.0-27.0) mg/dL Creatinine (0.6-1.5) mg/dL Est GFR (CKD-EPI)AfAm (60.0-200.0) Est GFR (CKD-EPI)NonAf (60.0-200.0) POC Glucose (mg/dL) 209 H 156 H 140 H (75-99) mg/dL Calcium (8.7-10.3) mg/dL 06/19/20 06/19/20 06/19/20 Range/Units 05:46 05:46 07:04 PT 20.8 H (9.9-11.9) sec INR 2.03 H (0.90-1.11) BUN 33.0 H (9.0-27.0) mg/dL Creatinine 1.9 H (0.6-1.5) mg/dL Est GFR (CKD-EPI)AfAm 41.7 L (60.0-200.0) Est GFR (CKD-EPI)NonAf 35.9 L (60.0-200.0) POC Glucose (mg/dL) 131 H (75-99) mg/dL Calcium 8.1 L (8.7-10.3) mg/dL Microbiology - Last 24 Hours (Table) 06/15/20 18:45 Anaerobic Culture - Preliminary Foot - Left 06/15/20 18:45 Gram Stain - Final Foot - Left Tissue Culture - Final Providencia alcalifaciens Methicillin resist S. aureus 06/13/20 09:38 Blood Culture - Preliminary Blood No Growth after 120 hours 06/13/20 09:38 Blood Culture - Preliminary Blood No Growth after 120 hours Diabetes panel 06/19/20 Range/Units 05:46 Sodium 138 (135-145) mmol/L Potassium 4.8 (3.5-5.5) mmol/L Chloride 109 (96-109) mmol/L Carbon Dioxide 23.8 (21.6-31.8) mmol/L BUN 33.0 H (9.0-27.0) mg/dL Creatinine 1.9 H (0.6-1.5) mg/dL Glucose 107 (70-110) mg/dL Calcium 8.1 L (8.7-10.3) mg/dL Calcium panel 06/19/20 Range/Units 05:46 Calcium 8.1 L (8.7-10.3) mg/dL Pituitary panel 06/19/20 Range/Units 05:46 Sodium 138 (135-145) mmol/L Potassium 4.8 (3.5-5.5) mmol/L Chloride 109 (96-109) mmol/L Carbon Dioxide 23.8 (21.6-31.8) mmol/L BUN 33.0 H (9.0-27.0) mg/dL Creatinine 1.9 H (0.6-1.5) mg/dL Glucose 107 (70-110) mg/dL Calcium 8.1 L (8.7-10.3) mg/dL Adrenal panel 06/19/20 Range/Units 05:46 Sodium 138 (135-145) mmol/L Potassium 4.8 (3.5-5.5) mmol/L Chloride 109 (96-109) mmol/L Carbon Dioxide 23.8 (21.6-31.8) mmol/L BUN 33.0 H (9.0-27.0) mg/dL Creatinine 1.9 H (0.6-1.5) mg/dL Glucose 107 (70-110) mg/dL Calcium 8.1 L (8.7-10.3) mg/dL Assessment and Plan Plan: Patient would benefit from guillotine amputation for control of sepsis followed by planned vascular surgery that could potentially be preceded by PCI if deemed feasible with proper medical therapy . Patient not candidate for CABG. KJ LOPEZ MD
[2020-06-15] MEDS ORDERED: DEXTROSE 50% SYRINGE 50 ML IVP ONE (17:04)
[2020-06-15 17:08] LABS: Glucose,Whole Blood 67 mg/dL (75-99)
[2020-06-15] MEDS: DAPTOmycin 500 MG in SODIUM CHLORIDE 0.9% 50 ML IVPB SCH (17:08)
[2020-06-15] MEDS ORDERED: IV FLUID CONTINUATION 500 ML IV ONE ×2 (17:11)
[2020-06-15 17:21] LABS: Glucose,Whole Blood 103 mg/dL (75-99)
[2020-06-15] MEDS ORDERED: KETAMINE 10 MG/ML 20 ML VIAL ONE (17:55)
[2020-06-15] MEDS ORDERED: PROPOFOL 10 MG/ML 20 ML VIAL IV ONE (17:55)
[2020-06-15] MEDS ORDERED: MIDAZOLAM 2 MG/2 ML VIAL ONE (17:55)
[2020-06-15] MEDS ORDERED: ROPIVACAINE 5 MG/ML 30 ML VIAL ONE (17:55)
[2020-06-15] MEDS ORDERED: fentaNYL (PF) 50 MCG/ML 2 ML AMP ONE (17:55)
[2020-06-15] MEDS ORDERED: LIDOCAINE 1% INJ 10MG/ML (20 ML MDV) SQ ONE ×2 (18:08)
[2020-06-15] MEDS ORDERED: SODIUM CHLORIDE 0.9% 1,000 ML IV ONE ×2 (18:41→19:42)
[2020-06-15 18:54] LABS: Glucose,Whole Blood 79 mg/dL (75-99)
[2020-06-15] MEDS ORDERED: HYDROmorphone 1 MG/ML 1 ML SYRINGE IVP ONE ×6 (18:58→19:14)
[2020-06-15] MEDS ORDERED: diphenhydrAMINE 50 MG/ML 1 ML VIAL IVP ONE (19:26)
--- NOTE | 2020-06-15 19:34 | OP ---
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 OPERATION: Disarticulation of the foot. ANESTHESIA: Ankle block and IV sedation. This patient has a history of triple coronary artery disease. Patient needs a major amputation. Patient is going for coronary artery bypass graft. DESCRIPTION OF PROCEDURE: The patient was brought to the operating room. Left leg was prepped and draped in the usual sterile manner. The patient had wet gangrene of the left foot. Lidocaine 1% was infiltrated before ankle block. After that, incision was made on the dorsum aspect of the ankle, deepened through skin, fat and fascia, tendons were divided. Then the incision was extended medially and laterally and deepened through skin, fat, fascia, and tendons were divided. The incision was made posteriorly to the ankle. Tendo calcaneus was divided. There was some bleeding noted. Tibial vessels were heavily calcified, which were suture-ligated with Prolene. Then the ligaments were divided at the foot. After that, tendo calcaneus was divided. Foot was removed and then we found that there were some more devitalized tissues present above the ankle joint. Using a sharp knife, we excises all that devitalized tissue, and tibia fibula was divided with hand electric saw at the ankle area. After that, we removed all the devitalized tissue. Wound was copiously irrigated with hydrogen peroxide, saline and Betadine. Hemostasis was well controlled. We took some deep cultures which were sent for culture and sensitivity. Dressing was applied. Patient was transferred to the recovery room in satisfactory condition. MMODL / IJN: [id number] / CARIDAD
--- NOTE | 2020-06-15 19:43 | P.ANPRN ---
Procedure Note - Anesthesia - Nerve Block Performed Left Popliteal Single Time Out Performed: Yes Date of Procedure: 06/15/20 Procedure Start Time: 19:30 Procedure Stop Time: 19:38 Location of Patient: Phase I Indication: Acute Post-Operative Pain, Dx/Pain Location (Left foot pain), Requested by Surgeon Sedation Type: Sedate with meaningful contact maintained Preparation: Sterile Prep Position: Right Lateral Needle Types: Pajunk Needle Gauge: 21 Ultrasound used to visualize needle placement: Yes Ultrasound used to observe medication spread: Yes Injectate: 0.5% Ropivacaine (see comment for volume) (20ml) Blood Aspirated: No Pain Paresthesia on Injection Noted: No Resistance on Injection: Normal Image Stored and Saved: Yes Events: Uneventful and Well Tolerated
[2020-06-15 21:14] LABS: Glucose,Whole Blood 84 mg/dL (75-99)
[2020-06-16] MEDS: PIPERACILLIN-TAZOBACTAM 3.375 GM in SODIUM CHLORIDE 0.9% 100 ML IVPB SCH ×4 (01:26→23:54)
[2020-06-16 06:31] LABS: Basophils % (A) 0 %; Eosinophils # (A) 0.1 k/uL (0-0.7); Eosinophils % (A) 1 %; HCT 31.2 % (39.0-53.0); Hypochromasia Marked; Lymphocytes # (A) 0.9 k/uL (1.0-4.8); Lymphocytes % (A) 7 %; MCH 27.7 pg (25.0-35.0); MCV 86.6 fL (80.0-100.0); Mean Platelet Volume 6.9; Monocytes # (A) 0.7 k/uL (0-1.0); Monocytes % (A) 6 %; Neutrophils # (A) 10.2 k/uL (1.3-7.7); Neutrophils % (A) 85 %; Platelet Count 381 k/uL (150-450); Poikilocytosis Slight; RBC 3.61 m/uL (4.30-5.90); RDW 15.5 % (11.5-15.5); WBC 12.1 k/uL (3.8-10.6)
[2020-06-16 07:06] LABS: Glucose,Whole Blood 87 mg/dL (75-99)
[2020-06-16 07:19] LABS: Ovalocytes Present; Polychromasia Present
[2020-06-16] MEDS: INSULIN ASPART (NovoLOG) 100 UNIT/ML VIAL SQ SCH ×4 (08:09→20:11)
[2020-06-16] MEDS: INSULIN DETEMIR (LEVEMIR) 100 UNIT/ML SYR SQ SCH (08:20)
[2020-06-16] MEDS: CLOPIDOGREL 75 MG TAB PO SCH (08:20)
[2020-06-16] MEDS: FUROSEMIDE 20 MG TAB PO SCH (08:21)
[2020-06-16] MEDS: carvediloL 12.5 MG TAB PO SCH ×2 (08:21→16:57)
[2020-06-16] MEDS: ASPIRIN 81 MG PO SCH (08:21)
[2020-06-16] MEDS: PANTOPRAZOLE 40 MG TABLET PO SCH (08:21)
[2020-06-16] MEDS: SODIUM CHLORIDE 0.9% 1,000 ML IV SCH ×3 (08:22→20:17)
[2020-06-16] MEDS ORDERED: ENOXAPARIN 100 MG/ML SYRINGE SQ SCH (09:00)
[2020-06-16] MEDS ORDERED: ATORVASTATIN 80 MG TAB PO SCH (09:15)
--- NOTE | 2020-06-16 09:39 | PN ---
PROGRESS NOTE Mr. Phan is a 65-year-old male with known history of severe peripheral vascular disease, history of coronary artery disease, chronic persistent atrial fibrillation, chronic kidney disease, and cardiomyopathy who presented with nonhealing ulcer in the left foot. He has underwent cardiac catheterization [address] Craft and was found to have a severe triple-vessel coronary artery disease. He underwent amputation of the left foot yesterday by Dr. Fox after discussion with Dr. Lopez and Dr. Fox. He is feeling well this morning. His breathing is stable. He denies any dizziness or palpitation. He denies any nausea. He continued on aspirin once a day, Plavix 75 mg daily, Coreg 12.5 mg twice a day, Lovenox subcu 90 mg twice a day, Lasix 20 mg daily, insulin in addition to his antibiotics. PHYSICAL EXAMINATION: He is a 65-year-old male, alert, oriented, in no apparent distress. Blood pressure running in the 120s to 140s with the heart rate in the 50s and 60s. Afebrile. LUNGS: Clear. HEART: Irregular, irregular. S1-S2. No S3 with a systolic murmur. No diastolic murmur. ABDOMEN: Soft and nontender. EXTREMITIES: A dressing noted on the left foot. LAB DATA: Lab data from today revealed a hemoglobin of 10, white blood cell of 12.1, platelet count of 381. IMPRESSION: 1. Status post amputation of the left foot with gangrenous foot. 2. Severe peripheral arterial disease. 3. Severe coronary artery disease. 4. Chronic persistent atrial fibrillation. 5. Chronic kidney disease. 6. History of cardiomyopathy. RECOMMENDATION: At this time, I will stop the Plavix. Continue the aspirin. Reinitiate anticoagulation because of the atrial fibrillation. I will re-initiate treatment with the statin. We will check his renal function. If stable, the BRAVO inhibitor will be reintroduced. Once he heals from his surgical intervention, then he will need to be evaluated for undergoing coronary artery bypass grafting versus high-risk percutaneous revascularization. I have discussed with the patient those finding in detail. He is in full understanding and agreement. MMODL / IJN: [id number] /
[2020-06-16 10:34] LABS: African American GFR (CKD) 44.5 (60.0-200.0); Anion Gap 9.1 mmol/L (4.00-12.00); Calcium 7.7 mg/dL (8.7-10.3); Carbon Dioxide 18.9 mmol/L (21.6-31.8); Non-African American GFR(CKD) 38.4 (60.0-200.0); Potassium 4.8 mmol/L (3.5-5.5)
[2020-06-16 10:35] LABS: INR 1.41 (0.90-1.11); Prothrombin Time 14.8 sec (9.9-11.9)
--- NOTE | 2020-06-16 10:38 | P.NPCON ---
History of Present Illness - Reason for Consult chronic renal failure - History of Present Illness Reason for consultation: Chronic kidney disease History of present illness: Patient is a 65-year-old male seen in consultation for chronic kidney disease. Patient has chronic kidney disease stage IIIB with baseline creatinine near 2. Etiology is diabetic kidney disease and nephrosclerosis. Patient came to the hospital on 06/13/2020 with pain in his left foot. There was concern for gangrene. He underwent amputation of his left foot on June 15. He was also scheduled to undergo cardiac catheterization but it seems like this on hold at this time. Oral intake is good. No vomiting or diarrhea. Good urine output. No hematuria or dysuria. Blood pressure is stable. He denies use of nonsteroid als. Currently maintained on Lasix 20 mg orally once daily. No fever or chills. No other complaints at this time. Vital signs are stable. General: The patient appeared well nourished and normally developed. HEENT: Head exam is unremarkable. Neck is without jugular venous distension. LUNGS: Breath sounds decreased. HEART: Rate and Rhythm are regular. ABDOMEN: Soft, nontender. EXTREMITITES: Left foot wrapped. No drainage noted. No edema. Past Medical History Past Medical History: Atrial Fibrillation, Coronary Artery Disease (CAD), COPD, Diabetes Mellitus, Hyperlipidemia, Hypertension, Renal Disease Additional Past Medical History / Comment(s): PAD History of Any Multi-Drug Resistant Organisms: None Reported Past Surgical History: Heart Catheterization With Stent, Orthopedic Surgery Additional Past Surgical History / Comment(s): toe amputation, cataracts Past Anesthesia/Blood Transfusion Reactions: No Reported Reaction Date of Last Stent Placement:: 2015 Past Psychological History: No Psychological Hx Reported Smoking Status: Heavy tobacco smoker Past Alcohol Use History: Rare Past Drug Use History: None Reported - Past Family History Mother Family Medical History: Diabetes Mellitus Medications and Allergies Home Medications Medication Instructions Recorded Confirmed Type Atorvastatin [Lipitor] 40 mg PO DAILY 01/08/18 06/13/20 History Clopidogrel [Plavix] 75 mg PO DAILY 01/08/18 06/13/20 History Enalapril [Vasotec] 10 mg PO DAILY 01/08/18 06/13/20 History Warfarin [Coumadin] See Taper PO DAILY 01/08/18 06/13/20 History Amoxicillin/Potassium Clav 1 tab PO Q12H 06/13/20 06/13/20 History [Augmentin 875-125 Tablet] Aspirin EC [Ecotrin Low Dose] 81 mg PO DAILY 06/13/20 06/13/20 History Carvedilol [Coreg] 12.5 mg PO BID-W/MEALS 06/13/20 06/13/20 History Furosemide [Lasix] 20 mg PO DAILY 06/13/20 06/13/20 History HYDROcodone/APAP 10-325MG [[place] 1 tab PO Q4H PRN 06/13/20 06/13/20 History 10-325] Insulin Detemir (Levemir) [Levemir] 30 units SQ QAM 06/13/20 06/13/20 History Allergies Allergy/AdvReac Type Severity Reaction Status Date / Time No Known Allergies Allergy Verified 06/15/20 17:12 Physical Exam Vitals: Vital Signs Temp Pulse Resp BP Pulse Ox 06/16/20 08:00 98.0 F 76 16 102/62 98 06/16/20 03:05 97.5 F L 16 132/84 98 06/15/20 22:33 60 137/89 98 06/15/20 22:18 97.2 F L 67 147/84 98 06/15/20 22:04 67 136/85 98 06/15/20 21:48 68 132/85 98 06/15/20 21:34 66 135/82 97 06/15/20 21:18 67 137/94 99 06/15/20 21:03 63 134/76 95 06/15/20 21:00 18 06/15/20 20:48 57 L 142/81 95 06/15/20 20:34 51 L 124/71 95 06/15/20 20:18 96.5 F L 70 18 146/79 96 06/15/20 19:30 65 16 144/70 97 06/15/20 19:15 68 16 142/65 96 06/15/20 19:00 68 14 113/75 96 06/15/20 18:48 97.1 F L 70 14 103/59 96 06/15/20 17:25 96.8 F L 06/15/20 17:12 69 16 128/70 97 06/15/20 14:00 98.2 F 68 16 129/74 100 Intake and Output 06/15/20 06/16/20 06/16/20 22:59 06:59 14:59 Intake Total 1750 Output Total 100 800 Balance 1650 -800 Intake: IV 1500 Oral 250 Output: Urine 800 Estimated Blood Loss 100 Other: Voiding Method Urinal Weight 91.626 kg Results - Lab Results Most recent lab results Calcium 8.0 mg/dL (8.7-10.3) L 06/15/20 06:13 06/16/20 05:46 06/15/20 06:13 Assessment and Plan Plan: Assessment: 1. Chronic kidney disease stage IIIB secondary to diabetic kidney disease and nephrosclerosis with baseline creatinine near 2. 2. Left foot gangrene status post amputation June 15. 3. Diabetes mellitus. 4. Chronic A. fib maintained on beta radha and anticoagulation. 5. Peripheral arterial disease. Plan: Maintain oral Lasix 20 mg daily. Dose of Lovenox to be adjusted for renal function. If undergoes cardiac catheterization, I will hydrate him with normal saline pre- and post IV dye exposure. Check UA. Check renal ultrasound. Avoid nephrotoxins. Thank you for the consultation. I will continue to follow the patient with you during his hospital stay.
--- NOTE | 2020-06-16 11:18 | P.PN ---
Subjective This is a pleasant 65 years old male with past medical history of diabetes mellitus, hyperlipidemia, hypertension, atrial fibrillation on Coumadin. He is a patient of Dr. Lambert and was sent by his surgeon Dr. Fox to the hospital for gangrenous left foot, patient could not service 54 hole long is suffering from this problem except for a long time it was slowly progressive. Currently his left foot looks like as well as the distal part of the leg with area of fluctuation and discoloration. Patient has been sent to the hospital by his vascular surgeon Dr. Fox recommended also vascular intervention by scheduling clerk Dr. Gaston for internal and external iliac artery disease Vitals looks stable. Labs showed leukocytosis with 16.0 K, hemoglobin 11.4, platelet 5.5. INR is 2.7. Potassium 5.6, creatinine 2.19, unknown baseline EKG showing atrial fibrillation at a rate of 88 with QTC of 510, left foot x-ray showing osteomyelitis with possible gas-forming organisms within the soft tissue, correlate for cellulitis, possible myositis an abscess Lactic acid is 2.3. Liver enzymes not elevated On admission patient was started on Unasyn and IV vancomycin Consult was placed for Dr. Gaston, infectious disease team and Dr. Omer on admission patient 06/14/2020 Patient admitted with left foot gangrene, no marked change in his clinical picture, Vitas looks stable and patient is afebrile. Leukocytosis improved to 14 K. Sugar is controlled and lactic acid is back to normal. BMP is pending because his and send out test Vascular Surgery and infectious disease on the case. Supervisor [employer] consult is pending 06/15/2020 Patient with left foot and possible distal leg gangrene, stable with no proximal progression compared to the last couple days, dressing is in place. Patient looks comfortable, not in distress, fully awake and oriented, he denies chest pain or dyspnea. Or any other complaints. He is hemodynamically stable. WBC t rending down to 13.8 K, INR is trended down to 2.4, while his Coumadin is held since admission. Creatinine is stable at 2.0 since admission. He is on broad-spectrum antibiotics DAPTOMYCIN and Zosyn as per ID team. Vascular surgery team are planning for debridement and amputation of the dictation cardiology input is appreciated, they recommended cardiac cath prior to lower extremity renovascular patient surgery, however high INR is not recommended, so vitamin K is a provided and patient may be bridged with heparin infusion length subtherapeutic INR. 06/16/2020 Patient was admitted with left foot wet gangrene and he underwent foot disarticulation yesterday , today she feels better as and no pain in the left leg area. 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 Wound cultures are pending. Hemodynamically stable. Leukocytosis trending down to 12.1 K. Creatinine is down to 1.8 Nephrology input is appreciated, they recommended adjusting the dose of Lovenox per renal function while holding his Coumadin for his history of atrial fibrillation Also urine analysis and renal ultrasound is ordered, most likely he has chronic kidney disease stage III further than acute kidney injury on the presentation. Objective - Vital Signs Vital signs: Vital Signs Temp 98.0 F 06/16/20 08:00 Pulse 76 06/16/20 08:00 Resp 16 06/16/20 08:00 BP 102/62 06/16/20 08:00 Pulse Ox 98 06/16/20 08:00 Intake & Output 06/15/20 06/16/20 06/16/20 18:59 06:59 18:59 Intake Total 1500 250 Output Total 100 800 Balance 1400 -550 Weight 91.626 kg Intake: IV 1500 Oral 250 Output: Urine 800 Estimated Blood Loss 100 Other: Voiding Method Toilet Urinal Urinal - Exam GENERAL: The patient is alert and oriented x3, not in any acute distress. Well developed, well nourished. HEENT: Pupils are round and equally reacting to light. EOMI. No scleral icterus. No conjunctival pallor. Normocephalic, atraumatic. No pharyngeal erythema. No thyromegaly. CARDIOVASCULAR: S1 and S2 present. No murmurs, rubs, or gallops. PULMONARY: Chest is clear to auscultation, no wheezing or crackles. ABDOMEN: Soft, nontender, nondistended, normoactive bowel sounds. No palpable organomegaly. MUSCULOSKELETAL: No joint swelling or deformity. -EXTREMITIES: No cyanosis, clubbing, or pedal edema. Left leg is status post amputation of the left foot, dressing is in place NEUROLOGICAL: Gross neurological examination did not reveal any focal deficits. SKIN: No rashes. No petechiae - Labs CBC & Chem 7: 06/16/20 05:46 06/16/20 05:46 Labs: Abnormal Lab Results - Last 24 Hours (Table) 06/15/20 06/15/20 06/15/20 Range/Units 11:37 17:01 17:19 WBC (3.8-10.6) k/uL RBC (4.30-5.90) m/uL Hgb (13.0-17.5) gm/dL Hct (39.0-53.0) % Neutrophils # (1.3-7.7) k/uL Lymphocytes # (1.0-4.8) k/uL PT (9.9-11.9) sec INR (0.90-1.11) Chloride (96-109) mmol/L Carbon Dioxide (21.6-31.8) mmol/L BUN (9.0-27.0) mg/dL Creatinine (0.6-1.5) mg/dL Est GFR (CKD-EPI)AfAm (60.0-200.0) Est GFR (CKD-EPI)NonAf (60.0-200.0) POC Glucose (mg/dL) 175 H 67 L 103 H (75-99) mg/dL Calcium (8.7-10.3) mg/dL 06/16/20 06/16/20 06/16/20 Range/Units 05:46 05:46 05:46 WBC 12.1 H (3.8-10.6) k/uL RBC 3.61 L (4.30-5.90) m/uL Hgb 10.0 L (13.0-17.5) gm/dL Hct 31.2 L (39.0-53.0) % Neutrophils # 10.2 H (1.3-7.7) k/uL Lymphocytes # 0.9 L (1.0-4.8) k/uL PT 14.8 H (9.9-11.9) sec INR 1.41 H (0.90-1.11) Chloride 111 H (96-109) mmol/L Carbon Dioxide 18.9 L (21.6-31.8) mmol/L BUN 36.0 H (9.0-27.0) mg/dL Creatinine 1.8 H (0.6-1.5) mg/dL Est GFR (CKD-EPI)AfAm 44.5 L (60.0-200.0) Est GFR (CKD-EPI)NonAf 38.4 L (60.0-200.0) POC Glucose (mg/dL) (75-99) mg/dL Calcium 7.7 L (8.7-10.3) mg/dL Microbiology - Last 24 Hours (Table) 06/15/20 18:45 Gram Stain - Preliminary Foot - Left Tissue Culture - Preliminary 06/15/20 18:45 Anaerobic Culture - Preliminary Foot - Left 06/13/20 09:38 Blood Culture - Preliminary Blood No Growth after 48 hours 06/13/20 09:38 Blood Culture - Preliminary Blood No Growth after 48 hours Assessment and Plan Assessment: Gangrene of the left foot, x-rays suspicious for cellulitis, myositis or an abscess with possible osteomyelitis and gas-forming organisms in the soft tissue. S/PD articulation of the left foot Acute kidney injury with hyperkalemia, with elements of chronic kidney disease stage III coronary artery disease, triple coronary artery disease , we will need to the vasculature surgery Peripheral vascular disease, need a vascular surgery after cardiac cath. Diabetes mellitus Elevated lactic acid Hyperlipidemia Hypertension Chronic atrial fibrillation on Coumadin Plan: This is a pleasant 65 years old male who presents with gangrenous left foot. Continue with Lasix, continue with anticoagulation with Coumadin and Lovenox bridging, Continue with antibiotics and follow-up recommendation of infectious disease team. Also scheduling clerk and vascular surgeon on the case. Keep gentle hydration. Continue with Zosyn and daptomycin follow-up creatinine. Hold vasotec, Consult nephrology team. Pain management Supervisor Brake Rep[employer] recommended cardiac cath to be followed by lower extremity vascular surgery, however CT S recommend controlling infection prior to revascularization Labs and medication were reviewed.. Continue same treatment. Continue with symptomatic treatment. Resume home medication. Monitor lytes and vitals. DVT and GI prophylaxis. Further recommendations depends on the clinical course of the patient DVT prophylaxis: Warfarin, on hold. Lovenox GI Prophylaxis: Ppi PT/OT: Pending Prognosis is guarded
[2020-06-16 12:14] LABS: Glucose,Whole Blood 73 mg/dL (75-99)
--- NOTE | 2020-06-16 14:02 | P.PN ---
Subjective Progress Note Date: 06/16/20 HISTORY OF PRESENT ILLNESS This is a 65-year-old male treated for left foot gangrene and concern for secondary infection due to severe peripheral arterial disease. Patient denies having any fever or chills. No chest pain. No shortness of breath or cough. Patient has wet gangrene of the left foot and area is cool to the touch. Patient needs a coronary artery bypass for three-vessel disease. Plan is for disarticulation of the left foot and then proceed with coronary artery bypass graft. Renal ultrasound is being done at the time of this evaluation. He has been afebrile, heart rate 76, blood pressure 102/62, pulse ox 98% on room air. WBC 12.1, hemoglobin 10, creatinine 1.8. PHYSICAL EXAMINATION Gen: This is a 65-year-old male he is resting in bed appears to be in no acute distress. HEENT: Head is atraumatic, normocephalic. Pupils equal, round. Sclerae is anicteric. NECK: Supple. No JVD. No lymphadenopathy. LUNGS: Clear to auscultation. No wheezes or rhonchi. No intercostal retractions. HEART: Regular rate and rhythm. No murmur. ABDOMEN: Soft. Bowel sounds are present. No masses. No tenderness. EXTREMITIES: Resting to the left foot with distal wet gangrene changes, follow over. Distal foot is cool to touch. NEUROLOGICAL: Patient is awake, alert and oriented x3. ASSESSMENT Left foot wet gangrene Severe peripheral artery disease Ischemia left lower extremity Triple-vessel coronary artery disease PLAN Continue daptomycin 500 mg IV piggyback daily Continue Zosyn 3.375 g IV piggyback every 8 hours The above dictated assessment and findings were discussed with Dr. Jason. The impression and plan of care have been directed as dictated. Barb Melara nurse practitioner acting as scribe for Dr. Jason. Objective - Vital Signs Vital signs: Vital Signs Temp 98.0 F 06/16/20 08:00 Pulse 76 06/16/20 08:00 Resp 16 06/16/20 08:00 BP 102/62 06/16/20 08:00 Pulse Ox 98 06/16/20 08:00 Intake & Output 06/15/20 06/16/20 06/16/20 18:59 06:59 18:59 Intake Total 1500 250 Output Total 100 800 Balance 1400 -550 Weight 91.626 kg Intake: IV 1500 Oral 250 Output: Urine 800 Estimated Blood Loss 100 Other: Voiding Method Toilet Urinal Urinal - Labs CBC & Chem 7: 06/16/20 05:46 06/16/20 05:46 Labs: Abnormal Lab Results - Last 24 Hours (Table) 06/15/20 06/15/20 06/16/20 Range/Units 17:01 17:19 05:46 WBC 12.1 H (3.8-10.6) k/uL RBC 3.61 L (4.30-5.90) m/uL Hgb 10.0 L (13.0-17.5) gm/dL Hct 31.2 L (39.0-53.0) % Neutrophils # 10.2 H (1.3-7.7) k/uL Lymphocytes # 0.9 L (1.0-4.8) k/uL PT (9.9-11.9) sec INR (0.90-1.11) Chloride (96-109) mmol/L Carbon Dioxide (21.6-31.8) mmol/L BUN (9.0-27.0) mg/dL Creatinine (0.6-1.5) mg/dL Est GFR (CKD-EPI)AfAm (60.0-200.0) Est GFR (CKD-EPI)NonAf (60.0-200.0) POC Glucose (mg/dL) 67 L 103 H (75-99) mg/dL Calcium (8.7-10.3) mg/dL 06/16/20 06/16/20 06/16/20 Range/Units 05:46 05:46 12:12 WBC (3.8-10.6) k/uL RBC (4.30-5.90) m/uL Hgb (13.0-17.5) gm/dL Hct (39.0-53.0) % Neutrophils # (1.3-7.7) k/uL Lymphocytes # (1.0-4.8) k/uL PT 14.8 H (9.9-11.9) sec INR 1.41 H (0.90-1.11) Chloride 111 H (96-109) mmol/L Carbon Dioxide 18.9 L (21.6-31.8) mmol/L BUN 36.0 H (9.0-27.0) mg/dL Creatinine 1.8 H (0.6-1.5) mg/dL Est GFR (CKD-EPI)AfAm 44.5 L (60.0-200.0) Est GFR (CKD-EPI)NonAf 38.4 L (60.0-200.0) POC Glucose (mg/dL) 73 L (75-99) mg/dL Calcium 7.7 L (8.7-10.3) mg/dL Microbiology - Last 24 Hours (Table) 06/13/20 09:38 Blood Culture - Preliminary Blood No Growth after 72 hours 06/13/20 09:38 Blood Culture - Preliminary Blood No Growth after 72 hours 06/15/20 18:45 Gram Stain - Preliminary Foot - Left Tissue Culture - Preliminary 06/15/20 18:45 Anaerobic Culture - Preliminary Foot - Left
--- NOTE | 2020-06-16 15:46 | US ---
EXAMINATION TYPE: US kidneys/renal and bladder DATE OF EXAM: 06/16/2020 COMPARISON: NONE CLINICAL HISTORY: deb. EXAM MEASUREMENTS: Right Kidney: 12.1 x 5.5 x 5.4 cm Left Kidney: 11.6 x 5.8 x 6.5 cm Right Kidney: No hydronephrosis or masses seen Left Kidney: multiple cysts throughout, largest measures 2.5 x 2.0 x 2.1 cm. Bladder: wnl Bilateral Jets seen: Yes Cortical medullary differentiation is maintained. Cortical echogenicity appears somewhat increased. IMPRESSION: Findings consistent with medical renal disease.
[2020-06-16] MEDS: DAPTOmycin 500 MG in SODIUM CHLORIDE 0.9% 50 ML IVPB SCH (16:28)
[2020-06-16] MEDS: HYDROcodone/APAP 5-325MG 1 EACH TAB PO PRN (16:57)
[2020-06-16] MEDS: HYDROmorphone 1 MG/ML 1 ML SYRINGE IVP PRN ×2 (16:58→23:57)
[2020-06-16 17:08] LABS: Glucose,Whole Blood 118 mg/dL (75-99)
[2020-06-16] MEDS ORDERED: WARFARIN 5 MG TAB PO ONE (18:00)
[2020-06-16] MEDS: HYDROmorphone 0.5 MG/0.5 ML SYRINGE IVP PRN (18:32)
[2020-06-16 20:07] LABS: Glucose,Whole Blood 144 mg/dL (75-99)
[2020-06-16] MEDS: HYDROcodone/APAP 10-325MG 1 EACH TAB PO PRN (20:11)
[2020-06-16 20:27] LABS: Amorphous Sediment,Urine Rare /hpf; Appearance,Urine Clear (Clear); Bacteria,Urine Rare /hpf; Bilirubin,Urine Negative (Negative); Blood,Urine Negative (Negative); Color,Urine Light Yellow; Glucose,Urine (UA) Negative (Negative); Ketones,Urine Negative (Negative); Leukocyte Esterase,Urine Negative (Negative); Mucus,Urine Rare /hpf; Nitrite,Urine Negative (Negative); PH, Urine 5.5 (5.0-8.0); Protein,Urine 1+ (Negative); RBC,Urine 1 /hpf (0-5); Specific Gravity,Urine 1.012 (1.001-1.035); Sperm,Urine Rare /hpf; Urobilinogen,Urine <2.0 mg/dL (<2.0); WBC,Urine <1 /hpf (0-5)
[2020-06-17] MEDS: HYDROcodone/APAP 10-325MG 1 EACH TAB PO PRN ×4 (01:53→23:35)
[2020-06-17] MEDS: SODIUM CHLORIDE 0.9% 1,000 ML IV SCH (06:00)
[2020-06-17] MEDS: HYDROmorphone 1 MG/ML 1 ML SYRINGE IVP PRN ×5 (06:15→21:42)
[2020-06-17 06:51] LABS: Glucose,Whole Blood 134 mg/dL (75-99)
[2020-06-17 07:03] LABS: Basophils % (A) 0 %; Eosinophils # (A) 0.2 k/uL (0-0.7); Eosinophils % (A) 2 %; HGB 8.7 gm/dL (13.0-17.5); Hypochromasia Marked; Lymphocytes # (A) 1.9 k/uL (1.0-4.8); Lymphocytes % (A) 20 %; MCH 26.9 pg (25.0-35.0); MCV 86.7 fL (80.0-100.0); Mean Platelet Volume 6.9; Monocytes # (A) 0.4 k/uL (0-1.0); Monocytes % (A) 5 %; Neutrophils # (A) 6.8 k/uL (1.3-7.7); Neutrophils % (A) 72 %; Platelet Count 395 k/uL (150-450); Poikilocytosis Slight; RBC 3.22 m/uL (4.30-5.90); RDW 15.9 % (11.5-15.5); WBC 9.5 k/uL (3.8-10.6)
[2020-06-17] MEDS: PIPERACILLIN-TAZOBACTAM 3.375 GM in SODIUM CHLORIDE 0.9% 100 ML IVPB SCH ×3 (09:00→23:33)
[2020-06-17] MEDS: ASPIRIN 81 MG PO SCH (09:07)
[2020-06-17] MEDS: carvediloL 12.5 MG TAB PO SCH ×2 (09:07→18:09)
[2020-06-17] MEDS: FUROSEMIDE 20 MG TAB PO SCH (09:07)
[2020-06-17] MEDS: INSULIN DETEMIR (LEVEMIR) 100 UNIT/ML SYR SQ SCH (09:07)
[2020-06-17] MEDS: INSULIN ASPART (NovoLOG) 100 UNIT/ML VIAL SQ SCH ×4 (09:08→20:29)
[2020-06-17] MEDS: PANTOPRAZOLE 40 MG TABLET PO SCH (09:18)
--- NOTE | 2020-06-17 09:50 | P.PN ---
Subjective HISTORY OF PRESENTING ILLNESS This is a pleasant 65-year-old male past medical history significant for coronary artery disease status post PCI to the circumflex in 2003, PAD, persistent atrial fibrillation on coumadin, hypertension, dyslipidemia and tobacco abuse. He follows in the office with Dr. Craft. he is POD #2 left foot amputation with Dr. Fox. He has been evaluated for CT surgery by Dr. Lopez and currently the plan is to let him heal from this surgery and the infection and then re-evaluate his surgical status. He is seen and examined sitting up on the edge of the bed in no acute distress. He denies symptoms of chest pain, shortness of breath, dizziness or palpitations. Blood pressure 120/69 heart rate 88 afebrile maintaining oxygen saturation on room air. Laboratory data reviewed, WBC 9.5, hemoglobin 8.7 and platelets 395. PT INR and BMP are pending. Currently maintained on aspirin 81 mg daily, carvedilol 12.5 mg twice a day, Lasix 20 mg by mouth daily, Coumadin daily. His atorvastatin is currently on hold secondary to interaction with daptomycin. Enalapril currently on hold secondary to renal function. PHYSICAL EXAMINATION CONSTITUTIONAL: No apparent distress, chronically ill-appearing. Appears older than stated age. HEENT: Head is normocephalic. Pupils are equal, round. Sclerae anicteric. Mucous membranes of the mouth are moist. No JVD. No carotid bruit. CHEST EXAMINATION: Expiratory wheezes, no rales or rhonchi. HEART EXAMINATION: Irregular rate and rhythm. S1, S2 heard. No murmurs, gallops or rub. EXTREMITIES: Left foot amputation with dressing in place, + right lower extremity chronic venous stasis changes and toe amputations ASSESSMENT Coronary artery disease with reported [address] surgery evaluation. Ischemic cardiomyopathy ejection fraction 40-45% Acute limb ischemia with non-healing infected left foot Questionable gangrene of left lower extremity with foul-smelling wound Supratherapeutic INR Leukocytosis Typical atrial flutter, history of atrial fibrillation on coumadin Anemia Tobacco abuse Diabetes mellitus PAD with plan for vascular revascularization and right toe amputations Chronic kidney disease PLAN Continue current medical regimen. Resume atorvastatin when he finishes his course of daptomycin. This can be resumed as an outpatient with Dr. Craft. Clinically stable from a cardiac perspective. Follow up with Dr. Craft in the office in 1 week post discharge for further discussion and planning of coronary revascularization. Nurse Practitioner note has been reviewed, I agree with a documented findings and plan of care. Patient was seen and examined. Objective - Vital Signs Vital signs: Vital Signs Temp 97.5 F L 06/17/20 07:58 Pulse 88 06/17/20 07:58 Resp 16 06/17/20 07:58 BP 120/69 06/17/20 07:58 Pulse Ox 94 L 06/17/20 07:58 Intake & Output 06/16/20 06/17/20 06/17/20 18:59 06:59 18:59 Other: Voiding Method Urinal # Voids 1 - Labs CBC & Chem 7: 06/17/20 06:35 06/16/20 05:46 Labs: Abnormal Lab Results - Last 24 Hours (Table) 06/16/20 06/16/20 06/16/20 Range/Units 05:46 05:46 12:12 RBC (4.30-5.90) m/uL Hgb (13.0-17.5) gm/dL Hct (39.0-53.0) % RDW (11.5-15.5) % PT 14.8 H (9.9-11.9) sec INR 1.41 H (0.90-1.11) Chloride 111 H (96-109) mmol/L Carbon Dioxide 18.9 L (21.6-31.8) mmol/L BUN 36.0 H (9.0-27.0) mg/dL Creatinine 1.8 H (0.6-1.5) mg/dL Est GFR (CKD-EPI)AfAm 44.5 L (60.0-200.0) Est GFR (CKD-EPI)NonAf 38.4 L (60.0-200.0) POC Glucose (mg/dL) 73 L (75-99) mg/dL Calcium 7.7 L (8.7-10.3) mg/dL Urine Protein (Negative) Amorphous Sediment (None) /hpf Urine Bacteria (None) /hpf Urine Mucus (None) /hpf 06/16/20 06/16/20 06/16/20 Range/Units 17:00 17:05 20:06 RBC (4.30-5.90) m/uL Hgb (13.0-17.5) gm/dL Hct (39.0-53.0) % RDW (11.5-15.5) % PT (9.9-11.9) sec INR (0.90-1.11) Chloride (96-109) mmol/L Carbon Dioxide (21.6-31.8) mmol/L BUN (9.0-27.0) mg/dL Creatinine (0.6-1.5) mg/dL Est GFR (CKD-EPI)AfAm (60.0-200.0) Est GFR (CKD-EPI)NonAf (60.0-200.0) POC Glucose (mg/dL) 118 H 144 H (75-99) mg/dL Calcium (8.7-10.3) mg/dL Urine Protein 1+ H (Negative) Amorphous Sediment Rare H (None) /hpf Urine Bacteria Rare H (None) /hpf Urine Mucus Rare H (None) /hpf 06/17/20 06/17/20 Range/Units 06:35 06:49 RBC 3.22 L (4.30-5.90) m/uL Hgb 8.7 L (13.0-17.5) gm/dL Hct 28.0 L (39.0-53.0) % RDW 15.9 H (11.5-15.5) % PT (9.9-11.9) sec INR (0.90-1.11) Chloride (96-109) mmol/L Carbon Dioxide (21.6-31.8) mmol/L BUN (9.0-27.0) mg/dL Creatinine (0.6-1.5) mg/dL Est GFR (CKD-EPI)AfAm (60.0-200.0) Est GFR (CKD-EPI)NonAf (60.0-200.0) POC Glucose (mg/dL) 134 H (75-99) mg/dL Calcium (8.7-10.3) mg/dL Urine Protein (Negative) Amorphous Sediment (None) /hpf Urine Bacteria (None) /hpf Urine Mucus (None) /hpf Microbiology - Last 24 Hours (Table) 06/15/20 18:45 Gram Stain - Preliminary Foot - Left Tissue Culture - Preliminary Gram Neg Bacilli 06/13/20 09:38 Blood Culture - Preliminary Blood No Growth after 72 hours 06/13/20 09:38 Blood Culture - Preliminary Blood No Growth after 72 hours
[2020-06-17 09:52] LABS: INR 1.22 (0.90-1.11)
[2020-06-17 10:17] LABS: Potassium 4.8 mmol/L (3.5-5.5)
[2020-06-17 11:20] LABS: African American GFR (CKD) 33.1 (60.0-200.0); Anion Gap 6.8 mmol/L (4.00-12.00); BUN/Creat Ratio 17.39 Ratio (12.00-20.00); Carbon Dioxide 23.2 mmol/L (21.6-31.8); Non-African American GFR(CKD) 28.5 (60.0-200.0)
--- NOTE | 2020-06-17 11:48 | P.PN ---
Subjective Patient is seen in follow-up for chronic kidney disease. Patient has chronic kidney disease stage IIIB with baseline creatinine near 2 secondary to diabetic kidney disease and nephrosclerosis. Renal function worse today. Creatinine 2.3. Blood pressure stable. Has been voiding. Oral intake fair. Vital signs are stable. General: The patient appeared well nourished and normally developed. HEENT: Head exam is unremarkable. Neck is without jugular venous distension. LUNGS: Breath sounds decreased. HEART: Rate and Rhythm are regular. ABDOMEN: Soft, nontender. EXTREMITITES: Left foot amputation noted. No edema. Objective - Vital Signs Vital signs: Vital Signs Temp 97.5 F L 06/17/20 07:58 Pulse 88 06/17/20 07:58 Resp 16 06/17/20 07:58 BP 120/69 06/17/20 07:58 Pulse Ox 94 L 06/17/20 07:58 Intake & Output 06/16/20 06/17/20 06/17/20 18:59 06:59 18:59 Other: Voiding Method Urinal # Voids 1 - Labs CBC & Chem 7: 06/17/20 06:35 06/17/20 06:35 Labs: Abnormal Lab Results - Last 24 Hours (Table) 06/16/20 06/16/20 06/16/20 Range/Units 12:12 17:00 17:05 RBC (4.30-5.90) m/uL Hgb (13.0-17.5) gm/dL Hct (39.0-53.0) % RDW (11.5-15.5) % PT (9.9-11.9) sec INR (0.90-1.11) Chloride (96-109) mmol/L BUN (9.0-27.0) mg/dL Creatinine (0.6-1.5) mg/dL Est GFR (CKD-EPI)AfAm (60.0-200.0) Est GFR (CKD-EPI)NonAf (60.0-200.0) Glucose (70-110) mg/dL POC Glucose (mg/dL) 73 L 118 H (75-99) mg/dL Calcium (8.7-10.3) mg/dL Urine Protein 1+ H (Negative) Amorphous Sediment Rare H (None) /hpf Urine Bacteria Rare H (None) /hpf Urine Mucus Rare H (None) /hpf 06/16/20 06/17/20 06/17/20 Range/Units 20:06 06:35 06:35 RBC (4.30-5.90) m/uL Hgb (13.0-17.5) gm/dL Hct (39.0-53.0) % RDW (11.5-15.5) % PT 13.0 H (9.9-11.9) sec INR 1.22 H (0.90-1.11) Chloride 110 H (96-109) mmol/L BUN 40.0 H (9.0-27.0) mg/dL Creatinine 2.3 H (0.6-1.5) mg/dL Est GFR (CKD-EPI)AfAm 33.1 L (60.0-200.0) Est GFR (CKD-EPI)NonAf 28.5 L (60.0-200.0) Glucose 128 H (70-110) mg/dL POC Glucose (mg/dL) 144 H (75-99) mg/dL Calcium 8.0 L (8.7-10.3) mg/dL Urine Protein (Negative) Amorphous Sediment (None) /hpf Urine Bacteria (None) /hpf Urine Mucus (None) /hpf 06/17/20 06/17/20 Range/Units 06:35 06:49 RBC 3.22 L (4.30-5.90) m/uL Hgb 8.7 L (13.0-17.5) gm/dL Hct 28.0 L (39.0-53.0) % RDW 15.9 H (11.5-15.5) % PT (9.9-11.9) sec INR (0.90-1.11) Chloride (96-109) mmol/L BUN (9.0-27.0) mg/dL Creatinine (0.6-1.5) mg/dL Est GFR (CKD-EPI)AfAm (60.0-200.0) Est GFR (CKD-EPI)NonAf (60.0-200.0) Glucose (70-110) mg/dL POC Glucose (mg/dL) 134 H (75-99) mg/dL Calcium (8.7-10.3) mg/dL Urine Protein (Negative) Amorphous Sediment (None) /hpf Urine Bacteria (None) /hpf Urine Mucus (None) /hpf Microbiology - Last 24 Hours (Table) 06/15/20 18:45 Gram Stain - Preliminary Foot - Left Tissue Culture - Preliminary Gram Neg Bacilli 06/13/20 09:38 Blood Culture - Preliminary Blood No Growth after 72 hours 06/13/20 09:38 Blood Culture - Preliminary Blood No Growth after 72 hours Assessment and Plan Plan: Assessment: 1. Chronic kidney disease stage IIIB secondary to diabetic kidney disease and nephrosclerosis with baseline creatinine near 2. No hydronephrosis noted on kidney ultrasound. Mild acute kidney injury mostly prerenal due to infection. Creatinine 2.3 today. Monitor. 2. Left foot gangrene status post amputation June 15. 3. Diabetes mellitus. 4. Chronic A. fib maintained on beta radha and anticoagulation. 5. Peripheral arterial disease. Plan: Maintain oral Lasix 20 mg daily. No plans for cardiac catheterization at this time. Avoid nephrotoxins. Continue to monitor renal function and urine output. If renal function declines further, will hold Lasix.
[2020-06-17 12:07] LABS: Glucose,Whole Blood 119 mg/dL (75-99)
--- NOTE | 2020-06-17 12:56 | P.PN ---
Subjective This is a pleasant 65 years old male with past medical history of diabetes mellitus, hyperlipidemia, hypertension, atrial fibrillation on Coumadin. He is a patient of Dr. Lambert and was sent by his surgeon Dr. Fox to the hospital for gangrenous left foot, patient could not service 54 hole long is suffering from this problem except for a long time it was slowly progressive. Currently his left foot looks like as well as the distal part of the leg with area of fluctuation and discoloration. Patient has been sent to the hospital by his vascular surgeon Dr. Fox recommended also vascular intervention by director traffic and planning Dr. Gaston for internal and external iliac artery disease Vitals looks stable. Labs showed leukocytosis with 16.0 K, hemoglobin 11.4, platelet 5.5. INR is 2.7. Potassium 5.6, creatinine 2.19, unknown baseline EKG showing atrial fibrillation at a rate of 88 with QTC of 510, left foot x-ray showing osteomyelitis with possible gas-forming organisms within the soft tissue, correlate for cellulitis, possible myositis an abscess Lactic acid is 2.3. Liver enzymes not elevated On admission patient was started on Unasyn and IV vancomycin Consult was placed for Dr. Gaston, infectious disease team and Dr. Omer on admission patient 06/14/2020 Patient admitted with left foot gangrene, no marked change in his clinical picture, Vitas looks stable and patient is afebrile. Leukocytosis improved to 14 K. Sugar is controlled and lactic acid is back to normal. BMP is pending because his and send out test Vascular Surgery and infectious disease on the case. Operations Supervisor consult is pending 06/15/2020 Patient with left foot and possible distal leg gangrene, stable with no proximal progression compared to the last couple days, dressing is in place. Patient looks comfortable, not in distress, fully awake and oriented, he denies chest pain or dyspnea. Or any other complaints. He is hemodynamically stable. WBC t rending down to 13.8 K, INR is trended down to 2.4, while his Coumadin is held since admission. Creatinine is stable at 2.0 since admission. He is on broad-spectrum antibiotics DAPTOMYCIN and Zosyn as per ID team. Vascular surgery team are planning for debridement and amputation of the dictation cardiology input is appreciated, they recommended cardiac cath prior to lower extremity renovascular patient surgery, however high INR is not recommended, so vitamin K is a provided and patient may be bridged with heparin infusion length subtherapeutic INR. 06/16/2020 Patient was admitted with left foot wet gangrene and he underwent foot disarticulation yesterday , today she feels better as and no pain in the left leg area. 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 Wound cultures are pending. Hemodynamically stable. Leukocytosis trending down to 12.1 K. Creatinine is down to 1.8 Nephrology input is appreciated, they recommended adjusting the dose of Lovenox per renal function while holding his Coumadin for his history of atrial fibrillation Also urine analysis and renal ultrasound is ordered, most likely he has chronic kidney disease stage III further than acute kidney injury on the presentation. 06/17/2020 Patient awake, he underwent amputation of his left foot 2 days ago, he had pain at his left foot stump overnight but now is better controlled. He is hemodynam ically stable CBC is unremarkable, INR is 1.2, creatinine went up a little bit to 2.3 and nephrology on the case. Wound culture is growing gram-negative bacilli Operations Supervisor recommended to restart his Coumadin last night Consultants on the case including infectious disease, director traffic and planning and cardiot horacic surgeon as well as ict trainer. He remains on Zosyn, daptomycin, normal saline were stopped and continue with small dose of Lasix. Objective - Vital Signs Vital signs: Vital Signs Temp 97.5 F L 06/17/20 07:58 Pulse 88 06/17/20 07:58 Resp 16 06/17/20 07:58 BP 120/69 06/17/20 07:58 Pulse Ox 94 L 06/17/20 07:58 Intake & Output 06/16/20 06/17/20 06/17/20 18:59 06:59 18:59 Other: Voiding Method Urinal # Voids 1 - Exam GENERAL: The patient is alert and oriented x3, not in any acute distress. Well developed, well nourished. HEENT: Pupils are round and equally reacting to light. EOMI. No scleral icterus. No conjunctival pallor. Normocephalic, atraumatic. No pharyngeal erythema. No thyromegaly. CARDIOVASCULAR: S1 and S2 present. No murmurs, rubs, or gallops. PULMONARY: Chest is clear to auscultation, no wheezing or crackles. ABDOMEN: Soft, nontender, nondistended, normoactive bowel sounds. No palpable organomegaly. MUSCULOSKELETAL: No joint swelling or deformity. -EXTREMITIES: No cyanosis, clubbing, or pedal edema. Left leg is status post amputation of the left foot, dressing is in place NEUROLOGICAL: Gross neurological examination did not reveal any focal deficits. SKIN: No rashes. No petechiae - Labs CBC & Chem 7: 06/17/20 06:35 06/17/20 06:35 Labs: Abnormal Lab Results - Last 24 Hours (Table) 06/16/20 06/16/20 06/16/20 Range/Units 17:00 17:05 20:06 RBC (4.30-5.90) m/uL Hgb (13.0-17.5) gm/dL Hct (39.0-53.0) % RDW (11.5-15.5) % PT (9.9-11.9) sec INR (0.90-1.11) Chloride (96-109) mmol/L BUN (9.0-27.0) mg/dL Creatinine (0.6-1.5) mg/dL Est GFR (CKD-EPI)AfAm (60.0-200.0) Est GFR (CKD-EPI)NonAf (60.0-200.0) Glucose (70-110) mg/dL POC Glucose (mg/dL) 118 H 144 H (75-99) mg/dL Calcium (8.7-10.3) mg/dL Urine Protein 1+ H (Negative) Amorphous Sediment Rare H (None) /hpf Urine Bacteria Rare H (None) /hpf Urine Mucus Rare H (None) /hpf 06/17/20 06/17/20 06/17/20 Range/Units 06:35 06:35 06:35 RBC 3.22 L (4.30-5.90) m/uL Hgb 8.7 L (13.0-17.5) gm/dL Hct 28.0 L (39.0-53.0) % RDW 15.9 H (11.5-15.5) % PT 13.0 H (9.9-11.9) sec INR 1.22 H (0.90-1.11) Chloride 110 H (96-109) mmol/L BUN 40.0 H (9.0-27.0) mg/dL Creatinine 2.3 H (0.6-1.5) mg/dL Est GFR (CKD-EPI)AfAm 33.1 L (60.0-200.0) Est GFR (CKD-EPI)NonAf 28.5 L (60.0-200.0) Glucose 128 H (70-110) mg/dL POC Glucose (mg/dL) (75-99) mg/dL Calcium 8.0 L (8.7-10.3) mg/dL Urine Protein (Negative) Amorphous Sediment (None) /hpf Urine Bacteria (None) /hpf Urine Mucus (None) /hpf 06/17/20 06/17/20 Range/Units 06:49 12:05 RBC (4.30-5.90) m/uL Hgb (13.0-17.5) gm/dL Hct (39.0-53.0) % RDW (11.5-15.5) % PT (9.9-11.9) sec INR (0.90-1.11) Chloride (96-109) mmol/L BUN (9.0-27.0) mg/dL Creatinine (0.6-1.5) mg/dL Est GFR (CKD-EPI)AfAm (60.0-200.0) Est GFR (CKD-EPI)NonAf (60.0-200.0) Glucose (70-110) mg/dL POC Glucose (mg/dL) 134 H 119 H (75-99) mg/dL Calcium (8.7-10.3) mg/dL Urine Protein (Negative) Amorphous Sediment (None) /hpf Urine Bacteria (None) /hpf Urine Mucus (None) /hpf Microbiology - Last 24 Hours (Table) 06/13/20 09:38 Blood Culture - Preliminary Blood No Growth after 96 hours 06/13/20 09:38 Blood Culture - Preliminary Blood No Growth after 96 hours 06/15/20 18:45 Gram Stain - Preliminary Foot - Left Tissue Culture - Preliminary Gram Neg Bacilli Assessment and Plan Assessment: Gangrene of the left foot, x-rays suspicious for cellulitis, myositis or an abscess with possible osteomyelitis and gas-forming organisms in the soft tissue. S/P articulation of the left foot Acute kidney injury with hyperkalemia, with elements of chronic kidney disease stage III coronary artery disease, triple coronary artery disease , we will need to do revasculaturization surgery Peripheral vascular disease, need a vascular surgery after cardiac cath. Diabetes mellitus Elevated lactic acid Hyperlipidemia Hypertension Chronic atrial fibrillation on Coumadin Plan: This is a pleasant 65 years old male who presents with gangrenous left foot. Continue with Lasix, continue with anticoagulation with Coumadin and Lovenox bridging, Continue with antibiotics and follow-up recommendation of infectious disease team. Also director traffic and planning and vascular surgeon on the case. DC IV fluids. Continue with Zosyn and daptomycin follow-up creatinine. Hold vasotec, follow-up nephrology consult team. Pain management Operations Supervisor recommended cardiac cath to be followed by lower extremity vascular surgery, however CT S recommend controlling infection prior to revascularization Labs and medication were reviewed.. Continue same treatment. Continue with symptomatic treatment. Resume home medication. Monitor lytes and vitals. DVT and GI prophylaxis. Further recommendations depends on the clinical course of the patient DVT prophylaxis: Warfarin, on hold. Lovenox GI Prophylaxis: Ppi PT/OT: Pending Prognosis is guarded
[2020-06-17] MEDS: DAPTOmycin 500 MG in SODIUM CHLORIDE 0.9% 50 ML IVPB SCH (15:50)
--- NOTE | 2020-06-17 16:31 | PN ---
PROGRESS NOTE DATE OF SERVICE: 06/17/2020 REASON FOR FOLLOWUP: Left foot gangrene. INTERVAL HISTORY: The patient is currently afebrile. The patient is feeling better. Breathing comfortably. Denies having any chest pain or shortness of breath or cough. Pain to the left foot disarticulation site is currently controlled. No diarrhea. PHYSICAL EXAMINATION: Blood pressure 130/74 with a pulse of 80, temperature 98.2. He is 94% on room air. General description is an elderly male up in the room in no distress. RESPIRATORY SYSTEM: Unlabored breathing with decreased intensity of breath sounds. No wheeze. HEART: S1, S2. Regular rate and rhythm. ABDOMEN: Soft, no tenderness. Left foot disarticulation site is currently dressed. No drainage on the dressing. LABS: Hemoglobin 8.7, white count 9.5, BUN of 40, creatinine is 2.3. Blood culture showing Gram-negative bacilli. DIAGNOSTIC IMPRESSION AND PLAN: Patient with left foot gangrene, status post disarticulation. Blood culture has been negative. Patient with no fever. White count normal. As the patient was not bacteremic and infected part is removed, he will not need to be on IV antibiotic on discharge. Currently waiting for cardiac intervention. Continue supportive care. MMODL / IJN: [id number] /
[2020-06-17 16:59] LABS: Glucose,Whole Blood 132 mg/dL (75-99)
--- NOTE | 2020-06-17 17:39 | P.PN ---
Progress Note - Text 65-year-old white male, history of diabetes, history of peripheral vascular disease, patient has history of coronary artery disease with three-vessel occlusive disease patient was seen by cardiology and cutting surgeons. Patient had a infected gangrene of the left foot patient had a left disarticulation of the left foot patient has no fever and blood culture negative patient is on IV antibiotic under his disease. Plan is continue with IV antibiotic and local wound care we have waiting for cardiology and cutting surgery to decide for coronary artery disease open heart surgery versus coronary artery stent. Then patient will need left external iliac artery and direct me and profundoplasty followed by amputation
[2020-06-17] MEDS ORDERED: WARFARIN 5 MG TAB PO ONE (18:00)
[2020-06-17 20:13] LABS: Glucose,Whole Blood 110 mg/dL (75-99)
[2020-06-17] MEDS ORDERED: WARFARIN 1 MG TAB PO ONE (21:30)
[2020-06-18] MEDS: HYDROcodone/APAP 10-325MG 1 EACH TAB PO PRN ×3 (06:02→21:01)
[2020-06-18 07:08] LABS: Glucose,Whole Blood 115 mg/dL (75-99)
[2020-06-18] MEDS: INSULIN ASPART (NovoLOG) 100 UNIT/ML VIAL SQ SCH ×4 (08:19→21:01)
[2020-06-18] MEDS: FUROSEMIDE 20 MG TAB PO SCH (08:24)
[2020-06-18] MEDS: PANTOPRAZOLE 40 MG TABLET PO SCH (08:24)
[2020-06-18] MEDS: ASPIRIN 81 MG PO SCH (08:24)
[2020-06-18] MEDS: INSULIN DETEMIR (LEVEMIR) 100 UNIT/ML SYR SQ SCH (08:24)
[2020-06-18] MEDS: carvediloL 12.5 MG TAB PO SCH ×2 (08:24→17:32)
[2020-06-18 08:59] LABS: INR 1.45 (0.90-1.11); Prothrombin Time 15.2 sec (9.9-11.9)
[2020-06-18] MEDS: PIPERACILLIN-TAZOBACTAM 3.375 GM in SODIUM CHLORIDE 0.9% 100 ML IVPB SCH ×3 (08:59→23:18)
--- NOTE | 2020-06-18 09:39 | P.PN ---
Subjective Patient is seen in follow-up for chronic kidney disease. Patient has chronic kidney disease stage IIIB with baseline creatinine near 2 secondary to diabetic kidney disease and nephrosclerosis. Creatinine 2.3 as of yesterday. Blood pressure stable. Has been voiding. Oral intake fair. No changes overnight. Vital signs are stable. General: The patient appeared well nourished and normally developed. HEENT: Head exam is unremarkable. Neck is without jugular venous distension. LUNGS: Breath sounds decreased. HEART: Rate and Rhythm are regular. ABDOMEN: Soft, nontender. EXTREMITITES: Left foot amputation noted. 1+ edema. Objective - Vital Signs Vital signs: Vital Signs Temp 97.8 F 06/18/20 08:00 Pulse 65 06/18/20 08:00 Resp 16 06/18/20 08:00 BP 128/83 06/18/20 08:00 Pulse Ox 97 06/18/20 08:00 Intake & Output 06/17/20 06/18/20 06/18/20 18:59 06:59 18:59 Output Total 300 Balance -300 Weight 91.626 kg Output: Urine 300 Other: Voiding Method Urinal Urinal - Labs CBC & Chem 7: 06/17/20 06:35 06/17/20 06:35 Labs: Abnormal Lab Results - Last 24 Hours (Table) 06/17/20 06/17/20 06/17/20 Range/Units 06:35 06:35 12:05 PT 13.0 H (9.9-11.9) sec INR 1.22 H (0.90-1.11) Chloride 110 H (96-109) mmol/L BUN 40.0 H (9.0-27.0) mg/dL Creatinine 2.3 H (0.6-1.5) mg/dL Est GFR (CKD-EPI)AfAm 33.1 L (60.0-200.0) Est GFR (CKD-EPI)NonAf 28.5 L (60.0-200.0) Glucose 128 H (70-110) mg/dL POC Glucose (mg/dL) 119 H (75-99) mg/dL Calcium 8.0 L (8.7-10.3) mg/dL 06/17/20 06/17/20 06/18/20 Range/Units 16:57 20:12 05:45 PT 15.2 H (9.9-11.9) sec INR 1.45 H (0.90-1.11) Chloride (96-109) mmol/L BUN (9.0-27.0) mg/dL Creatinine (0.6-1.5) mg/dL Est GFR (CKD-EPI)AfAm (60.0-200.0) Est GFR (CKD-EPI)NonAf (60.0-200.0) Glucose (70-110) mg/dL POC Glucose (mg/dL) 132 H 110 H (75-99) mg/dL Calcium (8.7-10.3) mg/dL 06/18/20 Range/Units 07:06 PT (9.9-11.9) sec INR (0.90-1.11) Chloride (96-109) mmol/L BUN (9.0-27.0) mg/dL Creatinine (0.6-1.5) mg/dL Est GFR (CKD-EPI)AfAm (60.0-200.0) Est GFR (CKD-EPI)NonAf (60.0-200.0) Glucose (70-110) mg/dL POC Glucose (mg/dL) 115 H (75-99) mg/dL Calcium (8.7-10.3) mg/dL Microbiology - Last 24 Hours (Table) 06/15/20 18:45 Gram Stain - Preliminary Foot - Left Tissue Culture - Preliminary Providencia alcalifaciens Presumptive MRSA 06/13/20 09:38 Blood Culture - Preliminary Blood No Growth after 96 hours 06/13/20 09:38 Blood Culture - Preliminary Blood No Growth after 96 hours Assessment and Plan Plan: Assessment: 1. Chronic kidney disease stage IIIB secondary to diabetic kidney disease and nephrosclerosis with baseline creatinine near 2. No hydronephrosis noted on kidney ultrasound. Mild acute kidney injury mostly prerenal due to infection. Creatinine 2.3 yesterday. Monitor. 2. Left foot gangrene status post amputation June 15. 3. Diabetes mellitus. 4. Chronic A. fib maintained on beta radha and anticoagulation. 5. Peripheral arterial disease. Plan: Maintain oral Lasix 20 mg daily. Avoid nephrotoxins. Continue to monitor renal function and urine output. If renal function declines further, will hold Lasix. May need intervention requiring IV contrast - I will hydrate him with normal saline pre-and post IV contrast exposure. Risk of worsening renal failure post IV contrast exposure was discussed with the patient. He understands.
[2020-06-18 09:40] LABS: African American GFR (CKD) 39.1 (60.0-200.0); Non-African American GFR(CKD) 33.8 (60.0-200.0)
--- NOTE | 2020-06-18 12:00 | P.PN ---
Subjective HISTORY OF PRESENTING ILLNESS This is a pleasant 65-year-old male past medical history significant for coronary artery disease status post PCI to the circumflex in 2003, PAD, persistent atrial fibrillation on coumadin, hypertension, dyslipidemia and tobacco abuse. He follows in the office with Dr. Craft. he is POD #2 left foot amputation with Dr. Fox. He has been evaluated for CT surgery by Dr. Lopez and he has been declined for bypass grafting. He is seen and examined sitting up in bed in no acute distress. He denies chest pain, shortness of breath, dizziness or palpitations. Blood pressure 128/83 heart rate 65 afebrile maintaining oxygen saturation on room air. Laboratory data reviewed, creatinine 2.0 and INR 1.45. Discussed with Dr. Jason the plan from a cardiovasculr revascularization standpoint. He will see Dr. Craft in the office and be scheduled for high risk PCI and then subsequently thereafter Dr. Fox will evaluated and consider proceeding with lower extremity revascularization. PHYSICAL EXAMINATION CONSTITUTIONAL: No apparent distress, chronically ill-appearing. Appears older than stated age. HEENT: Head is normocephalic. Pupils are equal, round. Sclerae anicteric. Mucous membranes of the mouth are moist. No JVD. No carotid bruit. CHEST EXAMINATION: Expiratory wheezes, no rales or rhonchi. HEART EXAMINATION: Irregular rate and rhythm. S1, S2 heard. No murmurs, gallops or rub. EXTREMITIES: Left foot amputation with dressing in place, + right lower extremity chronic venous stasis changes and toe amputations ASSESSMENT Coronary artery disease with reported [address] surgery evaluation. Ischemic cardiomyopathy ejection fraction 40-45% Acute limb ischemia with non-healing infected left foot Questionable gangrene of left lower extremity with foul-smelling wound Supratherapeutic INR Leukocytosis Typical atrial flutter, history of atrial fibrillation on coumadin Anemia Tobacco abuse Diabetes mellitus PAD with plan for vascular revascularization and right toe amputations Chronic kidney disease PLAN Continue current medical regimen. Resume atorvastatin when he finishes his course of daptomycin. This can be resumed as an outpatient with Dr. Craft. Clinically stable from a cardiac perspective. He can be discharged home today if medically stable. Follow up with Dr. Craft in the office in 1 week post discharge for further discussion and planning of coronary revascularization. Dr. Ghandi has recommend pre and post procedure IV hydration. Nurse Practitioner note has been reviewed, I agree with a documented findings and plan of care. Patient was seen and examined. Objective - Vital Signs Vital signs: Vital Signs Temp 97.8 F 06/18/20 08:00 Pulse 65 06/18/20 08:00 Resp 16 06/18/20 08:00 BP 128/83 06/18/20 08:00 Pulse Ox 97 06/18/20 08:00 Intake & Output 06/17/20 06/18/20 06/18/20 18:59 06:59 18:59 Output Total 300 Balance -300 Weight 91.626 kg Output: Urine 300 Other: Voiding Method Urinal Urinal - Labs CBC & Chem 7: 06/17/20 06:35 06/18/20 05:45 Labs: Abnormal Lab Results - Last 24 Hours (Table) 06/17/20 06/17/20 06/17/20 Range/Units 12:05 16:57 20:12 PT (9.9-11.9) sec INR (0.90-1.11) Creatinine (0.6-1.5) mg/dL Est GFR (CKD-EPI)AfAm (60.0-200.0) Est GFR (CKD-EPI)NonAf (60.0-200.0) POC Glucose (mg/dL) 119 H 132 H 110 H (75-99) mg/dL 06/18/20 06/18/20 06/18/20 Range/Units 05:45 05:45 07:06 PT 15.2 H (9.9-11.9) sec INR 1.45 H (0.90-1.11) Creatinine 2.0 H (0.6-1.5) mg/dL Est GFR (CKD-EPI)AfAm 39.1 L (60.0-200.0) Est GFR (CKD-EPI)NonAf 33.8 L (60.0-200.0) POC Glucose (mg/dL) 115 H (75-99) mg/dL Microbiology - Last 24 Hours (Table) 06/15/20 18:45 Gram Stain - Preliminary Foot - Left Tissue Culture - Preliminary Providencia alcalifaciens Presumptive MRSA 06/13/20 09:38 Blood Culture - Preliminary Blood No Growth after 96 hours 06/13/20 09:38 Blood Culture - Preliminary Blood No Growth after 96 hours
[2020-06-18 12:55] LABS: Glucose,Whole Blood 209 mg/dL (75-99)
[2020-06-18] MEDS: HYDROmorphone 1 MG/ML 1 ML SYRINGE IVP PRN ×4 (13:14→23:18)
[2020-06-18] MEDS: DAPTOmycin 500 MG in SODIUM CHLORIDE 0.9% 50 ML IVPB SCH (15:28)
[2020-06-18 16:43] LABS: Glucose,Whole Blood 156 mg/dL (75-99)
[2020-06-18] MEDS ORDERED: WARFARIN 5 MG TAB PO ONE (18:00)
[2020-06-18 20:31] LABS: Glucose,Whole Blood 140 mg/dL (75-99)
[2020-06-18] MEDS ORDERED: WARFARIN 1 MG TAB PO ONE (21:30)
[2020-06-18] MEDS ORDERED: WARFARIN 2 MG TAB PO ONE (21:30)
--- NOTE | 2020-06-18 21:35 | P.PN ---
Subjective This is a pleasant 65 years old male with past medical history of diabetes mellitus, hyperlipidemia, hypertension, atrial fibrillation on Coumadin. He is a patient of Dr. Lambert and was sent by his surgeon Dr. Fox to the hospital for gangrenous left foot, patient could not service 54 hole long is suffering from this problem except for a long time it was slowly progressive. Currently his left foot looks like as well as the distal part of the leg with area of fluctuation and discoloration. Patient has been sent to the hospital by his vascular surgeon Dr. Fox recommended also vascular intervention by outplacement consultant Dr. Gaston for internal and external iliac artery disease Vitals looks stable. Labs showed leukocytosis with 16.0 K, hemoglobin 11.4, platelet 5.5. INR is 2.7. Potassium 5.6, creatinine 2.19, unknown baseline EKG showing atrial fibrillation at a rate of 88 with QTC of 510, left foot x-ray showing osteomyelitis with possible gas-forming organisms within the soft tissue, correlate for cellulitis, possible myositis an abscess Lactic acid is 2.3. Liver enzymes not elevated On admission patient was started on Unasyn and IV vancomycin Consult was placed for Dr. Gaston, infectious disease team and Dr. Omer on admission patient 06/14/2020 Patient admitted with left foot gangrene, no marked change in his clinical picture, Vitas looks stable and patient is afebrile. Leukocytosis improved to 14 K. Sugar is controlled and lactic acid is back to normal. BMP is pending because his and send out test Vascular Surgery and infectious disease on the case. Design Coordinator consult is pending 06/15/2020 Patient with left foot and possible distal leg gangrene, stable with no proximal progression compared to the last couple days, dressing is in place. Patient looks comfortable, not in distress, fully awake and oriented, he denies chest pain or dyspnea. Or any other complaints. He is hemodynamically stable. WBC t rending down to 13.8 K, INR is trended down to 2.4, while his Coumadin is held since admission. Creatinine is stable at 2.0 since admission. He is on broad-spectrum antibiotics DAPTOMYCIN and Zosyn as per ID team. Vascular surgery team are planning for debridement and amputation of the dictation cardiology input is appreciated, they recommended cardiac cath prior to lower extremity renovascular patient surgery, however high INR is not recommended, so vitamin K is a provided and patient may be bridged with heparin infusion length subtherapeutic INR. 06/16/2020 Patient was admitted with left foot wet gangrene and he underwent foot disarticulation yesterday , today she feels better as and no pain in the left leg area. 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 Wound cultures are pending. Hemodynamically stable. Leukocytosis trending down to 12.1 K. Creatinine is down to 1.8 Nephrology input is appreciated, they recommended adjusting the dose of Lovenox per renal function while holding his Coumadin for his history of atrial fibrillation Also urine analysis and renal ultrasound is ordered, most likely he has chronic kidney disease stage III further than acute kidney injury on the presentation. 06/17/2020 Patient awake, he underwent amputation of his left foot 2 days ago, he had pain at his left foot stump overnight but now is better controlled. He is hemodynam ically stable CBC is unremarkable, INR is 1.2, creatinine went up a little bit to 2.3 and nephrology on the case. Wound culture is growing gram-negative bacilli Design Coordinator recommended to restart his Coumadin last night Consultants on the case including infectious disease, outplacement consultant and cardiot horacic surgeon as well as therapist occupational. He remains on Zosyn, daptomycin, normal saline were stopped and continue with small dose of Lasix. 06/18/2020 Patient lying in bed comfortable, back to his baseline. No specific complaint. Pain is controlled and his left lower extremity status post amputation. Dressing is in place. Patient is monitored closely by several consultants including cardiology, vascular surgery, infectious disease and nephrology. Vitals and labs are stable including creatinine of 2 at baseline CTD stage III. Glucose controlled. WBC is normal at 9.5k Patient remains on Zosyn and daptomycin. Also on aspirin and warfarin was restarted with INR is 1.4, we will give 7 mg of Coumadin tonight. Plavix is still on hold and we will discuss with surgery was started.I discussed the case with outplacement consultant Today about anticoagulation and they recommended to continue with Coumadin only for now, no need for bridging with Lovenox we will check INR tomorrow We will discuss with the other consultants including outplacement consultant and vascular surgery about further plans Objective - Vital Signs Vital signs: Vital Signs Temp 97.9 F 06/18/20 12:27 Pulse 71 06/18/20 12:27 Resp 14 06/18/20 12:27 BP 142/86 06/18/20 12:27 Pulse Ox 97 06/18/20 08:00 Intake & Output 06/18/20 06/18/20 06/19/20 06:59 18:59 06:59 Output Total 300 700 Balance -300 -700 Output: Urine 300 700 Other: Voiding Method Urinal Urinal - Exam GENERAL: The patient is alert and oriented x3, not in any acute distress. Well developed, well nourished. HEENT: Pupils are round and equally reacting to light. EOMI. No scleral icterus. No conjunctival pallor. Normocephalic, atraumatic. No pharyngeal erythema. No thyromegaly. CARDIOVASCULAR: S1 and S2 present. No murmurs, rubs, or gallops. PULMONARY: Chest is clear to auscultation, no wheezing or crackles. ABDOMEN: Soft, nontender, nondistended, normoactive bowel sounds. No palpable organomegaly. MUSCULOSKELETAL: No joint swelling or deformity. -EXTREMITIES: No cyanosis, clubbing, or pedal edema. Left leg is status post amputation of the left foot, dressing is in place NEUROLOGICAL: Gross neurological examination did not reveal any focal deficits. SKIN: No rashes. No petechiae - Labs CBC & Chem 7: 06/17/20 06:35 06/18/20 05:45 Labs: Abnormal Lab Results - Last 24 Hours (Table) 06/18/20 06/18/20 06/18/20 Range/Units 05:45 05:45 07:06 PT 15.2 H (9.9-11.9) sec INR 1.45 H (0.90-1.11) Creatinine 2.0 H (0.6-1.5) mg/dL Est GFR (CKD-EPI)AfAm 39.1 L (60.0-200.0) Est GFR (CKD-EPI)NonAf 33.8 L (60.0-200.0) POC Glucose (mg/dL) 115 H (75-99) mg/dL 06/18/20 06/18/20 06/18/20 Range/Units 12:54 16:41 20:30 PT (9.9-11.9) sec INR (0.90-1.11) Creatinine (0.6-1.5) mg/dL Est GFR (CKD-EPI)AfAm (60.0-200.0) Est GFR (CKD-EPI)NonAf (60.0-200.0) POC Glucose (mg/dL) 209 H 156 H 140 H (75-99) mg/dL Microbiology - Last 24 Hours (Table) 06/15/20 18:45 Gram Stain - Final Foot - Left Tissue Culture - Final Providencia alcalifaciens Methicillin resist S. aureus 06/13/20 09:38 Blood Culture - Preliminary Blood No Growth after 120 hours 06/13/20 09:38 Blood Culture - Preliminary Blood No Growth after 120 hours Assessment and Plan Assessment: Gangrene of the left foot, x-rays suspicious for cellulitis, myositis or an ab scess with possible osteomyelitis and gas-forming organisms in the soft tissue. S/P articulation of the left foot coronary artery disease, triple coronary artery disease , we will need to do revasculaturization surgery Peripheral vascular disease, need a vascular surgery after cardiac cath. Includ ing left external iliac artery chronic kidney disease stage III Diabetes mellitus Elevated lactic acid Hyperlipidemia Hypertension Chronic atrial fibrillation on Coumadin Plan: This is a pleasant 65 years old male who presents with gangrenous left foot. Continue with Lasix, continue with anticoagulation with Coumadin , Continue with antibiotics and follow-up recommendation of infectious disease team. Also outplacement consultant and vascular surgeon on the case. DC IV fluids. Continue with Zosyn and daptomycin follow-up creatinine. Hold vasotec, follow-up nephrology consult team. Pain management Design Coordinator recommended cardiac cath to be followed by lower extremity vascular surgery, however CTS recommend controlling infection prior to revascularization Labs and medication were reviewed.. Continue same treatment. Continue with symptomatic treatment. Resume home medication. Monitor lytes and vitals. DVT and GI prophylaxis. Further recommendations depends on the clinical course of the patient DVT prophylaxis: Warfarin GI Prophylaxis: Ppi PT/OT: Pending Prognosis is guarded
--- NOTE | 2020-06-18 21:59 | PN ---
PROGRESS NOTE DATE OF SERVICE: 06/18/2020 REASON FOR FOLLOWUP: Left foot gangrene. INTERVAL HISTORY: Patient is currently afebrile. The patient is breathing comfortably. Denies having any chest pain. No shortness of breath or cough. No nausea. No abdominal pain or pain to the left leg disarticulation site. PHYSICAL EXAMINATION: Blood pressure is 142/86, pulse of 71, temperature is 98.9, he is 97%. General description: The patient is an elderly male lying in bed in no distress. Respiratory system: Unlabored breathing, clear to auscultation anteriorly. Heart S1, S2. Regular rate and rhythm. ABDOMEN: Soft, no tenderness. Left leg disarticulation site looks wound looks clean with no slough tissue. No surrounding redness or any drainage. LABS: No new labs have been obtained today. White count normal as of yesterday. Blood cultures negative. Local culture with MRSA and Providencia. DIAGNOSTIC IMPRESSION AND PLAN: Patient with left foot gangrene, mostly ischemic like in this patient who is status post disarticulation. Currently waiting for cardiac revascularization with as he has been considered high risk for any bypass surgery. The patient is covered daptomycin and Zosyn, should cover true pathogen, the patient did grow culture, though the infected part has been removed, the patient is not bacteremic. He will be able to go home on some oral antibiotic in the form of doxycycline and . The patient benefit from intervention soon. So the patient will go for BKA and prevent any further infectious complication. This has been discussed in detail with the surgeon as well as with Cardiology. Continue supportive care. MMODL / IJN: [id number] /
[2020-06-19] MEDS: HYDROmorphone 1 MG/ML 1 ML SYRINGE IVP PRN ×2 (04:26→16:09)
[2020-06-19] MEDS: HYDROcodone/APAP 10-325MG 1 EACH TAB PO PRN ×3 (05:49→22:47)
[2020-06-19 07:06] LABS: Glucose,Whole Blood 131 mg/dL (75-99)
[2020-06-19] MEDS: INSULIN DETEMIR (LEVEMIR) 100 UNIT/ML SYR SQ SCH (07:33)
[2020-06-19] MEDS: carvediloL 12.5 MG TAB PO SCH ×2 (07:34→21:06)
[2020-06-19] MEDS: PANTOPRAZOLE 40 MG TABLET PO SCH (07:35)
[2020-06-19] MEDS: INSULIN ASPART (NovoLOG) 100 UNIT/ML VIAL SQ SCH ×3 (07:36→20:47)
[2020-06-19] MEDS: HYDROmorphone 0.5 MG/0.5 ML SYRINGE IVP PRN (07:38)
[2020-06-19] MEDS: PIPERACILLIN-TAZOBACTAM 3.375 GM in SODIUM CHLORIDE 0.9% 100 ML IVPB SCH ×2 (07:40→16:17)
[2020-06-19] MEDS: ASPIRIN 81 MG PO SCH (09:43)
[2020-06-19] MEDS: FUROSEMIDE 20 MG TAB PO SCH (09:43)
[2020-06-19 10:16] LABS: INR 2.03 (0.90-1.11); Prothrombin Time 20.8 sec (9.9-11.9)
[2020-06-19 10:44] LABS: African American GFR (CKD) 41.7 (60.0-200.0); Anion Gap 5.2 mmol/L (4.00-12.00); BUN/Creat Ratio 17.37 Ratio (12.00-20.00); Calcium 8.1 mg/dL (8.7-10.3); Carbon Dioxide 23.8 mmol/L (21.6-31.8); Magnesium 1.9 mg/dL (1.5-2.4); Non-African American GFR(CKD) 35.9 (60.0-200.0); Potassium 4.8 mmol/L (3.5-5.5)
[2020-06-19 11:24] LABS: Glucose,Whole Blood 161 mg/dL (75-99)
--- NOTE | 2020-06-19 11:35 | P.PN ---
Subjective Patient is seen in follow-up for chronic kidney disease. Patient has chronic kidney disease stage IIIB with baseline creatinine near 2 secondary to diabetic kidney disease and nephrosclerosis. Renal function at baseline. Blood pressure stable. Has been voiding. Oral intake fair. Cardiac catheterization pending. Vital signs are stable. General: The patient appeared well nourished and normally developed. HEENT: Head exam is unremarkable. Neck is without jugular venous distension. LUNGS: Breath sounds decreased. HEART: Rate and Rhythm are regular. ABDOMEN: Soft, nontender. EXTREMITITES: Left foot amputation noted. 1+ edema. Objective - Vital Signs Vital signs: Vital Signs Temp 98.1 F 06/19/20 07:03 Pulse 81 06/19/20 07:03 Resp 14 06/19/20 07:03 BP 126/73 06/19/20 07:03 Pulse Ox 96 06/19/20 07:03 Intake & Output 06/18/20 06/19/20 06/19/20 18:59 06:59 18:59 Intake Total 190 Output Total 700 1550 190 Balance -700 -1550 0 Intake: Oral 190 Output: Urine 700 1550 190 Other: Voiding Method Urinal Urinal - Labs CBC & Chem 7: 06/17/20 06:35 06/19/20 05:46 Labs: Abnormal Lab Results - Last 24 Hours (Table) 06/18/20 06/18/20 06/18/20 Range/Units 12:54 16:41 20:30 PT (9.9-11.9) sec INR (0.90-1.11) BUN (9.0-27.0) mg/dL Creatinine (0.6-1.5) mg/dL Est GFR (CKD-EPI)AfAm (60.0-200.0) Est GFR (CKD-EPI)NonAf (60.0-200.0) POC Glucose (mg/dL) 209 H 156 H 140 H (75-99) mg/dL Calcium (8.7-10.3) mg/dL 06/19/20 06/19/20 06/19/20 Range/Units 05:46 05:46 07:04 PT 20.8 H (9.9-11.9) sec INR 2.03 H (0.90-1.11) BUN 33.0 H (9.0-27.0) mg/dL Creatinine 1.9 H (0.6-1.5) mg/dL Est GFR (CKD-EPI)AfAm 41.7 L (60.0-200.0) Est GFR (CKD-EPI)NonAf 35.9 L (60.0-200.0) POC Glucose (mg/dL) 131 H (75-99) mg/dL Calcium 8.1 L (8.7-10.3) mg/dL 06/19/20 Range/Units 11:22 PT (9.9-11.9) sec INR (0.90-1.11) BUN (9.0-27.0) mg/dL Creatinine (0.6-1.5) mg/dL Est GFR (CKD-EPI)AfAm (60.0-200.0) Est GFR (CKD-EPI)NonAf (60.0-200.0) POC Glucose (mg/dL) 161 H (75-99) mg/dL Calcium (8.7-10.3) mg/dL Microbiology - Last 24 Hours (Table) 06/15/20 18:45 Anaerobic Culture - Preliminary Foot - Left 06/15/20 18:45 Gram Stain - Final Foot - Left Tissue Culture - Final Providencia alcalifaciens Methicillin resist S. aureus 06/13/20 09:38 Blood Culture - Preliminary Blood No Growth after 120 hours 06/13/20 09:38 Blood Culture - Preliminary Blood No Growth after 120 hours Assessment and Plan Plan: Assessment: 1. Chronic kidney disease stage IIIB secondary to diabetic kidney disease and nephrosclerosis with baseline creatinine near 2. No hydronephrosis noted on kidney ultrasound. Mild acute kidney injury mostly prerenal due to infection - improved. Creatinine 1.9 today. 2. Left foot gangrene status post amputation June 15. 3. Diabetes mellitus. 4. Chronic A. fib maintained on beta radha and anticoagulation. 5. Peripheral arterial disease. 6. Anemia of chronic kidney disease. Rule out iron deficiency. Plan: Hold Lasix. Avoid nephrotoxins. Continue to monitor renal function and urine output. Cardiac catheterization pending - I will hydrate him with normal saline at 75 mL an hour pre-and post IV contrast exposure. Risk of worsening renal failure post IV contrast exposure was discussed with the patient and his . He understands. Check iron studies.
--- NOTE | 2020-06-19 12:13 | P.PN ---
Subjective HISTORY OF PRESENTING ILLNESS This is a pleasant 65-year-old male past medical history significant for coronary artery disease status post PCI to the circumflex in 2003, PAD, persistent atrial fibrillation on coumadin, hypertension, dyslipidemia and tobacco abuse. He follows in the office with Dr. Craft. On further discussion with Dr. Fox he is recommending revascularization of the coronary arteries prior to discharge. Dr. Craft is having a meeting with the patient and his today to discuss the options and risks involved with the procedures. The patient is seen and examined in no acute distress. He denies chest pain, shortness of breath, dizziness or palpitations. Blood pressure 138/84 heart rate 78 afebrile and maintaining oxygen saturation on room air. Laboratory data reviewed, INR 2.03, sodium 138, potassium 4.8, creatinine 1.9 and magnesium 1.9. PHYSICAL EXAMINATION CONSTITUTIONAL: No apparent distress, chronically ill-appearing. Appears older than stated age. HEENT: Head is normocephalic. Pupils are equal, round. Sclerae anicteric. Mucous membranes of the mouth are moist. No JVD. No carotid bruit. CHEST EXAMINATION: Expiratory wheezes, no rales or rhonchi. HEART EXAMINATION: Irregular rate and rhythm. S1, S2 heard. No murmurs, gallops or rub. EXTREMITIES: Left foot amputation with dressing in place, + right lower extremity chronic venous stasis changes and toe amputations ASSESSMENT Coronary artery disease with reported [address] surgery evaluation. Ischemic cardiomyopathy ejection fraction 40-45% Acute limb ischemia with non-healing infected left foot Questionable gangrene of left lower extremity with foul-smelling wound Supratherapeutic INR Leukocytosis Typical atrial flutter, history of atrial fibrillation on coumadin Anemia Tobacco abuse Diabetes mellitus PAD with plan for vascular revascularization and right toe amputations Chronic kidney disease PLAN Continue current medical regimen. Hold coumadin pending possible cardiac revascularization today or tomorrow. Further recommendations to follow based on clinical course. Nurse Practitioner note has been reviewed, I agree with a documented findings and plan of care. Patient was seen and examined. Objective - Vital Signs Vital signs: Vital Signs Temp 97.7 F 06/19/20 12:05 Pulse 78 06/19/20 12:05 Resp 16 06/19/20 12:05 BP 138/84 06/19/20 12:05 Pulse Ox 100 06/19/20 12:05 Intake & Output 06/18/20 06/19/20 06/19/20 18:59 06:59 18:59 Intake Total 190 Output Total 700 1550 190 Balance -700 -1550 0 Intake: Oral 190 Output: Urine 700 1550 190 Other: Voiding Method Urinal Urinal - Labs CBC & Chem 7: 06/17/20 06:35 06/19/20 05:46 Labs: Abnormal Lab Results - Last 24 Hours (Table) 06/18/20 06/18/20 06/18/20 Range/Units 12:54 16:41 20:30 PT (9.9-11.9) sec INR (0.90-1.11) BUN (9.0-27.0) mg/dL Creatinine (0.6-1.5) mg/dL Est GFR (CKD-EPI)AfAm (60.0-200.0) Est GFR (CKD-EPI)NonAf (60.0-200.0) POC Glucose (mg/dL) 209 H 156 H 140 H (75-99) mg/dL Calcium (8.7-10.3) mg/dL 06/19/20 06/19/20 06/19/20 Range/Units 05:46 05:46 07:04 PT 20.8 H (9.9-11.9) sec INR 2.03 H (0.90-1.11) BUN 33.0 H (9.0-27.0) mg/dL Creatinine 1.9 H (0.6-1.5) mg/dL Est GFR (CKD-EPI)AfAm 41.7 L (60.0-200.0) Est GFR (CKD-EPI)NonAf 35.9 L (60.0-200.0) POC Glucose (mg/dL) 131 H (75-99) mg/dL Calcium 8.1 L (8.7-10.3) mg/dL 06/19/20 Range/Units 11:22 PT (9.9-11.9) sec INR (0.90-1.11) BUN (9.0-27.0) mg/dL Creatinine (0.6-1.5) mg/dL Est GFR (CKD-EPI)AfAm (60.0-200.0) Est GFR (CKD-EPI)NonAf (60.0-200.0) POC Glucose (mg/dL) 161 H (75-99) mg/dL Calcium (8.7-10.3) mg/dL Microbiology - Last 24 Hours (Table) 06/15/20 18:45 Anaerobic Culture - Preliminary Foot - Left 06/15/20 18:45 Gram Stain - Final Foot - Left Tissue Culture - Final Providencia alcalifaciens Methicillin resist S. aureus 06/13/20 09:38 Blood Culture - Preliminary Blood No Growth after 120 hours 06/13/20 09:38 Blood Culture - Preliminary Blood No Growth after 120 hours
[2020-06-19] MEDS ORDERED: PHYTONADIONE ORAL 5 MG/5 ML ORAL.SYRG PO STA (12:48)
[2020-06-19] MEDS: SODIUM CHLORIDE 0.9% 1,000 ML IV SCH (13:19)
--- NOTE | 2020-06-19 13:30 | P.PN ---
Subjective This is a pleasant 65 years old male with past medical history of diabetes mellitus, hyperlipidemia, hypertension, atrial fibrillation on Coumadin. He is a patient of Dr. Lambert and was sent by his surgeon Dr. Fox to the hospital for gangrenous left foot, patient could not service 54 hole long is suffering from this problem except for a long time it was slowly progressive. Currently his left foot looks like as well as the distal part of the leg with area of fluctuation and discoloration. Patient has been sent to the hospital by his vascular surgeon Dr. Fox recommended also vascular intervention by city assessor Dr. Gaston for internal and external iliac artery disease Vitals looks stable. Labs showed leukocytosis with 16.0 K, hemoglobin 11.4, platelet 5.5. INR is 2.7. Potassium 5.6, creatinine 2.19, unknown baseline EKG showing atrial fibrillation at a rate of 88 with QTC of 510, left foot x-ray showing osteomyelitis with possible gas-forming organisms within the soft tissue, correlate for cellulitis, possible myositis an abscess Lactic acid is 2.3. Liver enzymes not elevated On admission patient was started on Unasyn and IV vancomycin Consult was placed for Dr. Gaston, infectious disease team and Dr. Omer on admission patient 06/14/2020 Patient admitted with left foot gangrene, no marked change in his clinical picture, Vitas looks stable and patient is afebrile. Leukocytosis improved to 14 K. Sugar is controlled and lactic acid is back to normal. BMP is pending because his and send out test Vascular Surgery and infectious disease on the case. Merchant Banker consult is pending 06/15/2020 Patient with left foot and possible distal leg gangrene, stable with no proximal progression compared to the last couple days, dressing is in place. Patient looks comfortable, not in distress, fully awake and oriented, he denies chest pain or dyspnea. Or any other complaints. He is hemodynamically stable. WBC t rending down to 13.8 K, INR is trended down to 2.4, while his Coumadin is held since admission. Creatinine is stable at 2.0 since admission. He is on broad-spectrum antibiotics DAPTOMYCIN and Zosyn as per ID team. Vascular surgery team are planning for debridement and amputation of the dictation cardiology input is appreciated, they recommended cardiac cath prior to lower extremity renovascular patient surgery, however high INR is not recommended, so vitamin K is a provided and patient may be bridged with heparin infusion length subtherapeutic INR. 06/16/2020 Patient was admitted with left foot wet gangrene and he underwent foot disarticulation yesterday , today she feels better as and no pain in the left leg area. 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 Wound cultures are pending. Hemodynamically stable. Leukocytosis trending down to 12.1 K. Creatinine is down to 1.8 Nephrology input is appreciated, they recommended adjusting the dose of Lovenox per renal function while holding his Coumadin for his history of atrial fibrillation Also urine analysis and renal ultrasound is ordered, most likely he has chronic kidney disease stage III further than acute kidney injury on the presentation. 06/17/2020 Patient awake, he underwent amputation of his left foot 2 days ago, he had pain at his left foot stump overnight but now is better controlled. He is hemodynam ically stable CBC is unremarkable, INR is 1.2, creatinine went up a little bit to 2.3 and nephrology on the case. Wound culture is growing gram-negative bacilli Merchant Banker recommended to restart his Coumadin last night Consultants on the case including infectious disease, city assessor and cardiot horacic surgeon as well as cable ferryboat operator. He remains on Zosyn, daptomycin, normal saline were stopped and continue with small dose of Lasix. 06/18/2020 Patient lying in bed comfortable, back to his baseline. No specific complaint. Pain is controlled and his left lower extremity status post amputation. Dressing is in place. Patient is monitored closely by several consultants including cardiology, vascular surgery, infectious disease and nephrology. Vitals and labs are stable including creatinine of 2 at baseline CTD stage III. Glucose controlled. WBC is normal at 9.5k Patient remains on Zosyn and daptomycin. Also on aspirin and warfarin was restarted with INR is 1.4, we will give 7 mg of Coumadin tonight. Plavix is still on hold and we will discuss with surgery was started.I discussed the case with city assessor Today about anticoagulation and they recommended to continue with Coumadin only for now, no need for bridging with Lovenox we will check INR tomorrow We will discuss with the other consultants including city assessor and vascular surgery about further plans 06/19/2020 I discussed the case with cardiology team today, possible patient would be going for cardiac catheterization and Dr. Gaston, and evaluated the patient. Hemodynamically he is stable. INR today is 2.0. Creatinine is stable at 1.9. Also I discussed the case with nephrology team and at bedside have a lot of questions and all their questions were answered to their satisfaction at my best. Patient currently remains on Zosyn and daptomycin as per ID team. IV fluids are on hold. Patient continue on aspirin. Plavix is a still on hold. Objective - Vital Signs Vital signs: Vital Signs Temp 97.7 F 06/19/20 12:05 Pulse 78 06/19/20 12:05 Resp 16 06/19/20 12:05 BP 138/84 06/19/20 12:05 Pulse Ox 100 06/19/20 12:05 Intake & Output 06/18/20 06/19/20 06/19/20 18:59 06:59 18:59 Intake Total 190 Output Total 700 1550 190 Balance -700 -1550 0 Intake: Oral 190 Output: Urine 700 1550 190 Other: Voiding Method Urinal Urinal - Exam GENERAL: The patient is alert and oriented x3, not in any acute distress. Well developed, well nourished. HEENT: Pupils are round and equally reacting to light. EOMI. No scleral icterus. No conjunctival pallor. Normocephalic, atraumatic. No pharyngeal erythema. No thyromegaly. CARDIOVASCULAR: S1 and S2 present. No murmurs, rubs, or gallops. PULMONARY: Chest is clear to auscultation, no wheezing or crackles. ABDOMEN: Soft, nontender, nondistended, normoactive bowel sounds. No palpable organomegaly. MUSCULOSKELETAL: No joint swelling or deformity. -EXTREMITIES: No cyanosis, clubbing, or pedal edema. Left leg is status post amputation of the left foot, dressing is in place NEUROLOGICAL: Gross neurological examination did not reveal any focal deficits. SKIN: No rashes. No petechiae - Labs CBC & Chem 7: 06/17/20 06:35 06/19/20 05:46 Labs: Abnormal Lab Results - Last 24 Hours (Table) 06/18/20 06/18/20 06/19/20 Range/Units 16:41 20:30 05:46 PT 20.8 H (9.9-11.9) sec INR 2.03 H (0.90-1.11) BUN (9.0-27.0) mg/dL Creatinine (0.6-1.5) mg/dL Est GFR (CKD-EPI)AfAm (60.0-200.0) Est GFR (CKD-EPI)NonAf (60.0-200.0) POC Glucose (mg/dL) 156 H 140 H (75-99) mg/dL Calcium (8.7-10.3) mg/dL 06/19/20 06/19/20 06/19/20 Range/Units 05:46 07:04 11:22 PT (9.9-11.9) sec INR (0.90-1.11) BUN 33.0 H (9.0-27.0) mg/dL Creatinine 1.9 H (0.6-1.5) mg/dL Est GFR (CKD-EPI)AfAm 41.7 L (60.0-200.0) Est GFR (CKD-EPI)NonAf 35.9 L (60.0-200.0) POC Glucose (mg/dL) 131 H 161 H (75-99) mg/dL Calcium 8.1 L (8.7-10.3) mg/dL Microbiology - Last 24 Hours (Table) 06/13/20 09:38 Blood Culture - Final Blood No Growth after 144 hours 06/13/20 09:38 Blood Culture - Final Blood No Growth after 144 hours 06/15/20 18:45 Anaerobic Culture - Preliminary Foot - Left 06/15/20 18:45 Gram Stain - Final Foot - Left Tissue Culture - Final Providencia alcalifaciens Methicillin resist S. aureus Assessment and Plan Assessment: Gangrene of the left foot, x-rays suspicious for cellulitis, myositis or an abscess with possible osteomyelitis and gas-forming organisms in the soft tissue. S/P articulation of the left foot coronary artery disease, triple coronary artery disease , we will need to do re vasculaturization surgery Peripheral vascular disease, need a vascular surgery after cardiac cath. Including left external iliac artery chronic kidney disease stage III Diabetes mellitus Elevated lactic acid Hyperlipidemia Hypertension Chronic atrial fibrillation on Coumadin Plan: This is a pleasant 65 years old male who presents with gangrenous left foot. Continue with Lasix, continue with anticoagulation with Coumadin , Continue with antibiotics and follow-up recommendation of infectious disease team. Also city assessor and vascular surgeon on the case. DC IV fluids. Continue with Zosyn and daptomycin follow-up creatinine. Hold vasotec, follow-up nephrology consult team. Pain management Merchant Banker recommended cardiac cath to be followed by lower extremity vascular surgery, however CTS recommend controlling infection prior to revascularization Labs and medication were reviewed.. Continue same treatment. Continue with symptomatic treatment. Resume home medication. Monitor lytes and vitals. DVT and GI prophylaxis. Further recommendations depends on the clinical course of the patient DVT prophylaxis: Warfarin GI Prophylaxis: Ppi PT/OT: Pending Prognosis is guarded
[2020-06-19] MEDS ORDERED: NITROGLYCERIN SL TABS 0.4 MG TAB SUBLINGUAL PRN ×2 (13:46→19:04)
[2020-06-19] MEDS ORDERED: ALPRAZolam 0.25 MG TAB PO PRN (13:46)
[2020-06-19] MEDS ORDERED: ALPRAZolam 0.5 MG TAB PO PRN (13:46)
[2020-06-19] MEDS: DAPTOmycin 500 MG in SODIUM CHLORIDE 0.9% 50 ML IVPB SCH (15:53)
--- NOTE | 2020-06-19 16:38 | PN ---
PROGRESS NOTE DATE OF SERVICE: 06/19/2020 REASON FOR FOLLOWUP: Left foot gangrene ischemia, status post disarticulation. INTERVAL HISTORY: The patient is currently afebrile. The patient is feeling better, breathing comfortably. The patient denies having any chest pain or shortness of breath or cough. No nausea, no vomiting, no abdominal pain or pain to the left foot amputation site. PHYSICAL EXAMINATION: Blood pressure 138/84 with a pulse of 78, temperature 97.7. He is 99% on room air. General description is an elderly male up in the bed in no distress. RESPIRATORY SYSTEM: Unlabored breathing. Clear to auscultation anteriorly. HEART: S1, S2. Regular rate and rhythm. ABDOMEN: Soft. No tenderness. Left foot amputation site is currently dressed. No drainage on the dressing. LABS: BUN of 33, creatinine 1.9. INR is 2.03. DIAGNOSTIC IMPRESSION AND PLAN: Patient with left foot gangrene, ischemic, and concern for possible . Patient bacteremic. White count is normal. Patient is currently waiting for cardiac intervention. He is covered with vancomycin, Zosyn and daptomycin; to continue. Transition to oral antibiotic on discharge. Family and patient had multiple questions; those were answered in layman's terms. MMODL / IJN: [id number] /
[2020-06-19 17:15] LABS: INR 2.8 (<1.2); Prothrombin Time 26.8 sec (9.0-12.0)
[2020-06-19] MEDS ORDERED: MIDAZOLAM 2 MG/2 ML VIAL IV ONE (17:33)
[2020-06-19] MEDS ORDERED: LIDOCAINE 1% INJ 10MG/ML (20 ML MDV) ONE (17:33)
[2020-06-19] MEDS ORDERED: LIDOCAINE 1% INJ 10MG/ML (20 ML MDV) SQ ONE (17:33)
[2020-06-19] MEDS ORDERED: fentaNYL (PF) 50 MCG/ML 2 ML AMP ONE (17:39)
[2020-06-19] MEDS ORDERED: IV FLUID CONTINUATION 600 ML IV ONE (17:40)
[2020-06-19] MEDS: fentaNYL (PF) 50 MCG/ML 2 ML AMP IV ONE ×2 (17:40→17:43)
[2020-06-19] MEDS ORDERED: HEPARIN SODIUM 1,000 UN/ML (10ML VL) ONE ×2 (17:45→18:05)
[2020-06-19] MEDS ORDERED: HYDROmorphone 0.5 MG/0.5 ML SYRINGE IVP ONE ×3 (17:54→19:04)
[2020-06-19] MEDS ORDERED: WARFARIN 2 MG TAB PO ONE (18:00)
[2020-06-19] MEDS ORDERED: niCARdipine 25 MG/10 ML VIAL ONE (18:14)
[2020-06-19] MEDS: MIDAZOLAM 2 MG/2 ML VIAL IV ONE ×2 (18:36→18:52)
[2020-06-19] MEDS ORDERED: IOPAMIDOL-370 125ML BTL INJ ONE (18:53)
[2020-06-19] MEDS ORDERED: PROTAMINE SULFATE 10 MG/ML 5 ML VIAL IV ONE (18:55)
[2020-06-19] MEDS ORDERED: ZOLPIDEM 5 MG TAB PO PRN (19:04)
[2020-06-19] MEDS ORDERED: CLOPIDOGREL 75 MG TAB ONE ×2 (19:04→19:06)
[2020-06-19] MEDS ORDERED: MAG HYDROX/AL HYDROX/SIMETH 30 ML CUP PO PRN (19:04)
[2020-06-19] MEDS ORDERED: ATROPINE SULFATE 0.1 MG/ML 10ML SYRINGE IV PRN (19:04)
[2020-06-19] MEDS ORDERED: RX INFO: IV CONTRAST WAS GIVEN 1 EACH MISC MISCELLANE PRN (19:04)
[2020-06-19] MEDS ORDERED: CLOPIDOGREL 75 MG TAB PO ONE (19:12)
[2020-06-19] MEDS ORDERED: SODIUM CHLORIDE 0.9% 1,000 ML IV SCH (19:15)
--- NOTE | 2020-06-19 19:41 | PTCA ---
PERCUTANEOUSTRANS CORORONARY ANGIOGRAPHY DATE OF SERVICE: 06/19/2020 PERFORMING PHYSICIAN: Kristian Craft M.D. PROCEDURES PERFORMED: 1. Successful placement of Impella in the left ventricle from right groin approach. 2. Atherectomy of the left anterior descending artery using the orbital atherectomy device from [facility]. 3. Successful stenting of the mid left anterior descending artery using two Xience drug-eluting stents measuring 2.75 x 38 and 3.0 x 15 mm with excellent angiographic results and reduction of stenosis from 99% to 0%. 4. Right common femoral artery angiogram. INDICATION: This is a 65-year-old gentleman with coronary artery disease and prior stenting of the left circumflex who was diagnosed recently with critical limb ischemia of the left foot. He underwent an angiogram by Dr. Fxo and was found to have occluded left iliac artery and occluded left profunda. The patient is going to undergo left iliac/profunda endarterectomy. As a preoperative cardiac assessment, he was seen in the office and a stress test was performed for shortness of breath with exertion. The stress test came in to be abnormal. Subsequently, he underwent a heart catheterization and that revealed severe triple-vessel coronary artery disease. The patient was seen by the cardiothoracic surgeon and he was deemed to be high risk for the surgery. Because of that, he was brought today to undergo an intervention. APPROACH: Right common femoral artery. COMPLICATIONS: None. LEVEL OF SEDATION: Moderate, with sedation length of 82 minutes. PROCEDURE DESCRIPTION: After obtaining informed consent, the patient was brought to the cardiac laborer laboratory. The right common femoral artery was cannulated using micropuncture technique under ultrasound guidance. The micropuncture wire passed easily. Then I placed a 6-Slovenian sheath. After that anticoagulation was initiated using heparin. The patient was given 8000 units of heparin IV. After that I deployed one Perclose. After that I did upgrade my sheath into a 14-Slovenian sheath using an 8-Slovenian dilator, 10-Slovenian dilator, and 12-Slovenian dilator. After that, I did access the 14-Slovenian sheath and I placed a 6-Slovenian inside the 14- Slovenian sheath. The 6-Slovenian I placed was 23 cm. The sheath was advanced all the way to the hub inside the 14-Slovenian sheath. Subsequently, after checking the ACT, I did cross the left ventricle using an 0.035 regular Glidewire. After that I placed an 0.018 wire. Subsequently I advanced the Impella over the 0.018 wire to the left ventricle. After that I did turn the Impella on. After that, I did engage the left main using an XB4 guide. I did wire the LAD using a long Whisper wire. I exchanged my Whisper for a ViperWire using a catheter. After that I did atherectomy of the LAD using 3 runs of low speed, each one 20 seconds. After that I did balloon angioplasty using a 2.5 x 15 mm NC balloon before I deployed two drug-eluting stents. The first stent was 2.75 x 38 and the second one was 3.0 x 12 mm. The final angiogram showed excellent angiographic results, and the procedure was completed without any complication. POST-PROCEDURE MANAGEMENT: 1. Dual anti-platelet therapy. 2. Risk factor modifications. 3. Follow up with the patient. 4. PCI of the left circumflex down the line. MMODL / IJN: [id number] /
[2020-06-19 20:02] LABS: Glucose,Whole Blood 83 mg/dL (75-99)
[2020-06-19] MEDS: ATORVASTATIN 80 MG TAB PO SCH (21:08)
[2020-06-20] MEDS: PIPERACILLIN-TAZOBACTAM 3.375 GM in SODIUM CHLORIDE 0.9% 100 ML IVPB SCH ×4 (00:33→23:39)
[2020-06-20] MEDS: HYDROmorphone 1 MG/ML 1 ML SYRINGE IVP PRN ×7 (01:45→21:58)
[2020-06-20 04:11] LABS: Anisocytosis Slight; Basophils % (A) 0 %; Eosinophils # (A) 0.2 k/uL (0-0.7); Eosinophils % (A) 2 %; HCT 22.2 % (39.0-53.0); Hypochromasia Marked; Lymphocytes # (A) 1.2 k/uL (1.0-4.8); Lymphocytes % (A) 14 %; MCH 27.5 pg (25.0-35.0); MCV 85.7 fL (80.0-100.0); Mean Platelet Volume 7.4; Monocytes # (A) 0.5 k/uL (0-1.0); Monocytes % (A) 6 %; Neutrophils # (A) 6.7 k/uL (1.3-7.7); Neutrophils % (A) 76 %; Platelet Count 282 k/uL (150-450); Poikilocytosis Slight; RBC 2.59 m/uL (4.30-5.90); RDW 16.2 % (11.5-15.5); WBC 8.8 k/uL (3.8-10.6)
[2020-06-20 04:19] LABS: HGB 7.1 gm/dL (13.0-17.5)
[2020-06-20 04:20] LABS: INR 1.8 (<1.2); Prothrombin Time 17.4 sec (9.0-12.0)
[2020-06-20 04:36] LABS: Calcium 8.1 mg/dL (8.4-10.2); Potassium 4.3 mmol/L (3.5-5.1)
[2020-06-20] MEDS: HYDROcodone/APAP 10-325MG 1 EACH TAB PO PRN ×4 (05:43→23:39)
[2020-06-20] MEDS ORDERED: ASPIRIN 325 MG TAB PO ONE (06:00)
[2020-06-20] MEDS ORDERED: SODIUM CHLORIDE 0.9% 1,000 ML in EMPTY BAG 1 BAG IV ONE (06:00)
[2020-06-20 07:00] LABS: Glucose,Whole Blood 84 mg/dL (75-99)
[2020-06-20] MEDS ORDERED: HEPARIN SODIUM,PORCINE 10,000 UNIT in SODIUM CHLORIDE 0.9% 1,000 ML IRRIGATION PRN (07:00)
[2020-06-20] MEDS ORDERED: HEPARIN SODIUM,PORCINE 2,500 UNIT in SODIUM CHLORIDE 0.9% 250 ML IRRIGATION PRN (07:00)
[2020-06-20] MEDS ORDERED: HYDROmorphone 0.5 MG/0.5 ML SYRINGE IVP STA (07:30)
[2020-06-20] MEDS: INSULIN ASPART (NovoLOG) 100 UNIT/ML VIAL SQ SCH ×4 (07:37→21:59)
[2020-06-20] MEDS: HYDROmorphone 0.5 MG/0.5 ML SYRINGE IVP PRN (07:43)
[2020-06-20] MEDS: carvediloL 12.5 MG TAB PO SCH ×2 (07:44→16:53)
[2020-06-20] MEDS: PANTOPRAZOLE 40 MG TABLET PO SCH (07:44)
[2020-06-20] MEDS: INSULIN DETEMIR (LEVEMIR) 100 UNIT/ML SYR SQ SCH (07:45)
[2020-06-20] MEDS: CLOPIDOGREL 75 MG TAB PO SCH (08:55)
[2020-06-20] MEDS: SODIUM CHLORIDE 0.9% 1,000 ML IV SCH (08:57)
[2020-06-20 12:07] LABS: Glucose,Whole Blood 92 mg/dL (75-99)
[2020-06-20 12:30] VITALS: BMI 27.2
--- NOTE | 2020-06-20 14:51 | PN ---
PROGRESS NOTE The patient is seen for followup for acute kidney injury. Renal function remains fairly stable. Creatinine at about 1.9-1.8 mg/dL. It is slightly lower than the 2 previously. The patient is currently lying in bed, he is comfortable. The patient is status post cardiac catheterization which was done yesterday. Patient had successful stenting of the mid left anterior descending artery. He also had atherectomy of the LAD. The 24 hour urine output noted at about 1.2 L. PHYSICAL EXAMINATION: On examination today, blood pressure was 118/82, heart rate 75 per minute, patient is afebrile. Examination of the heart S1, S2. Examination of lungs decreased breath sounds at bases. Abdomen is soft, nontender. Examination of lower extremities shows bilateral extremities to be wrapped. NATURAL RESOURCES SPECIALIST exam grossly intact. LAB: Show sodium 137, potassium 4.8, chloride 111. CO2 is 25, BUN 30, creatinine 1.84, hemoglobin 7.1 g/dL. ASSESSMENT: 1. Acute kidney injury, acute tubular necrosis, nonoliguric. Creatinine slightly improved from 2 to 1.8. Renal function, however, fairly stable. Etiologies underlying infection, possible underlying prerenal state, currently receiving IV fluids. 2. Chronic kidney disease stage IIIB, secondary to diabetic kidney disease and nephrosclerosis. Baseline creatinine close to 2. 3. Left foot gangrene status post amputation June 15. 4. Chronic atrial fibrillation maintained on anticoagulation and beta blockers. 5. Anemia of chronic disease. PLAN: May continue with IV fluids at 50 mL an hour. Repeat labs in a.m. Continue to avoid nephrotoxic agents. Encourage increased oral intake. MMODL / IJN: [id number] /
[2020-06-20] MEDS: DAPTOmycin 500 MG in SODIUM CHLORIDE 0.9% 50 ML IVPB SCH (15:09)
--- NOTE | 2020-06-20 15:14 | P.PN ---
Subjective Progress Note Date: 06/20/20 This is a 65-year-old male with history of coronary artery disease with previous PCI of the circumflex, PAD and persistent atrial fibrillation, hypertension and dyslipidemia who had left foot" by Dr. Fox recently. He also has coronary artery disease and was evaluated by cardiac surgeons and felt that patient is not a good candidate for bypass surgery. Dr. Gaston has done atherectomy and stent placement of the LAD and also used Impella. Patient developed a hematoma, which was reduced with him stop. This was evaluated by Dr. Gaston this morning. Patient is otherwise doing well. Denies any chest pain or shortness of breath. Still having significant pain in the leg from surgery. His vital signs are stable. Lab work showed drop in hemoglobin to 7.1. His creatinine is about 1.84 which has been stable compared to the previous readings. Being followed by nephrology also. Continue current medical therapy and increase activity as tolerated Objective - Vital Signs Vital signs: Vital Signs Temp 98.5 F 06/20/20 12:00 Pulse 76 06/20/20 14:00 Resp 12 06/20/20 14:00 BP 136/90 06/20/20 14:00 Pulse Ox 96 06/20/20 14:00 Intake & Output 06/19/20 06/20/20 06/20/20 18:59 06:59 18:59 Intake Total 390 1095 710 Output Total 190 1025 0 Balance 200 70 710 Weight 91.626 kg 91.2 kg 91.2 kg Intake: IV 200 795 470 Piperacillin-Tazobactam 3 100 100 .375 gm In Sodium Chloride 0.9% 100 ml @ 25 mls/hr IVPB Q8HR [facility] Rx# :[id number] Sodium Chloride 0.9% 1, 695 370 000 ml @ 50 mls/hr IV . Q20H [facility]HA Rx#:[id number] Oral 190 300 240 Output: Urine 190 1025 0 Other: Voiding Method Urinal Urinal Urinal - Exam GENERAL EXAM: Patient is alert and oriented and doesn't appear to be in any acute distress HEENT: Normocephalic. Normal reaction of pupils, equal size, normal range of extraocular motion. No erythema or exudates in the throat. NECK: No masses, no nuchal rigidity. CHEST: No chest wall deformity. LUNGS: Equal air entry with no crackles or wheeze. HEART: S1 and S2 normal with no audible mumurs or gallops. Regular rhythm, femorals equal on both sides.. ABDOMEN: No hepatosplenomegaly, normal bowel sounds, no guarding or rigidity. SKIN: No rashes CENTRAL NERVOUS SYSTEM: No focal deficits. EXTREMITIES: No cyanosis, clubbing or edema. Right groin: Patient developed a moderate hematoma, stable - Labs CBC & Chem 7: 06/20/20 03:45 06/20/20 03:45 Labs: Abnormal Lab Results - Last 24 Hours (Table) 06/19/20 06/20/20 06/20/20 Range/Units 17:01 03:45 03:45 RBC 2.59 L (4.30-5.90) m/uL Hgb 7.1 L D (13.0-17.5) gm/dL Hct 22.2 L (39.0-53.0) % RDW 16.2 H (11.5-15.5) % PT 26.8 H 17.4 H (9.0-12.0) sec INR 2.8 H 1.8 H (<1.2) Chloride (98-107) mmol/L BUN (9-20) mg/dL Creatinine (0.66-1.25) mg/dL Glucose (74-99) mg/dL Calcium (8.4-10.2) mg/dL 06/20/20 Range/Units 03:45 RBC (4.30-5.90) m/uL Hgb (13.0-17.5) gm/dL Hct (39.0-53.0) % RDW (11.5-15.5) % PT (9.0-12.0) sec INR (<1.2) Chloride 111 H (98-107) mmol/L BUN 30 H (9-20) mg/dL Creatinine 1.84 H (0.66-1.25) mg/dL Glucose 68 L (74-99) mg/dL Calcium 8.1 L (8.4-10.2) mg/dL Microbiology - Last 24 Hours (Table) 06/15/20 18:45 Anaerobic Culture - Final Foot - Left 06/13/20 09:38 Blood Culture - Final Blood No Growth after 144 hours 06/13/20 09:38 Blood Culture - Final Blood No Growth after 144 hours Assessment and Plan (1) CAD (coronary artery disease) Current Visit: Yes Status: Acute Code(s): I25.10 - ATHSCL HEART DISEASE OF [place] CORONARY ARTERY W/O ANG PCTRS SNOMED Code(s): 94253666 (2) Status post amputation Current Visit: Yes Status: Acute Code(s): Z89.9 - ACQUIRED ABSENCE OF LIMB, UNSPECIFIED SNOMED Code(s): 16346025 (3) Gangrene of left foot Current Visit: Yes Status: Acute Code(s): I96 - GANGRENE, NOT ELSEWHERE CLASSIFIED SNOMED Code(s): 27005879631970194 (4) Chronic renal failure Current Visit: Yes Status: Acute Code(s): N18.9 - CHRONIC KIDNEY DISEASE, UNSPECIFIED SNOMED Code(s): 12374974 (5) Chronic anemia Current Visit: Yes Status: Acute Code(s): D64.9 - ANEMIA, UNSPECIFIED SNOMED Code(s): 999020845 Plan: Patient is status post atherectomy and stent placement of the LAD. Seems to be clinically stable without any chest pain, shortness of breath. His INR is 1.8. Wouldn't resume his Coumadin. His creatinine is stable. Increase activity. We'll follow
[2020-06-20 16:39] LABS: Glucose,Whole Blood 64 mg/dL (75-99)
[2020-06-20 16:57] LABS: Glucose,Whole Blood 71 mg/dL (75-99)
--- NOTE | 2020-06-20 19:34 | PN ---
PROGRESS NOTE DATE OF SERVICE: 06/20/2020 REASON FOR FOLLOWUP: Left foot gangrene. INTERVAL HISTORY: The patient is currently afebrile. The patient is status post PTCA and stenting to one of his arteries. Patient tolerated the procedure. Currently in the ICU. Patient is feeling better. Breathing comfortably. No chest pain or cough. No abdominal pain. No pain to the left foot disarticulation site. PHYSICAL EXAMINATION: Blood pressure 119/71, pulse of 69, temperature 98. He is 93% on room air. General description: The patient is an elderly male lying in bed in no distress. Respiratory system: Unlabored breathing. Clear to auscultation anteriorly. Heart S1, S2. Regular rate and rhythm. Abdomen soft, no tenderness. LABS: Hemoglobin 7.3, white count 8.8. BUN of 30, creatinine 1.4. DIAGNOSTIC IMPRESSION AND PLAN: Patient with left foot gangrene. Cultures were positive for Providencia and MRSA. However, the infected part removed. Blood culture negative. The patient is covered with daptomycin and Zosyn to continue while inpatient and monitor clinical course closely. MMODL / IJN: [id number] /
--- NOTE | 2020-06-20 19:36 | P.PN ---
Subjective This is a pleasant 65 years old male with past medical history of diabetes mellitus, hyperlipidemia, hypertension, atrial fibrillation on Coumadin. He is a patient of Dr. Lambert and was sent by his surgeon Dr. Fox to the hospital for gangrenous left foot, patient could not service 54 hole long is suffering from this problem except for a long time it was slowly progressive. Currently his left foot looks like as well as the distal part of the leg with area of fluctuation and discoloration. Patient has been sent to the hospital by his vascular surgeon Dr. Fox recommended also vascular intervention by home care companion Dr. Gaston for internal and external iliac artery disease Vitals looks stable. Labs showed leukocytosis with 16.0 K, hemoglobin 11.4, platelet 5.5. INR is 2.7. Potassium 5.6, creatinine 2.19, unknown baseline EKG showing atrial fibrillation at a rate of 88 with QTC of 510, left foot x-ray showing osteomyelitis with possible gas-forming organisms within the soft tissue, correlate for cellulitis, possible myositis an abscess Lactic acid is 2.3. Liver enzymes not elevated On admission patient was started on Unasyn and IV vancomycin Consult was placed for Dr. Gaston, infectious disease team and Dr. Omer on adm ission patient 06/14/2020 Patient admitted with left foot gangrene, no marked change in his clinical picture, Vitas looks stable and patient is afebrile. Leukocytosis improved to 14 K. Sugar is controlled and lactic acid is back to normal. BMP is pending because his and send out test Vascular Surgery and infectious disease on the case. Independent Crop Consultant consult is pending 06/15/2020 Patient with left foot and possible distal leg gangrene, stable with no proximal progression compared to the last couple days, dressing is in place. Patient looks comfortable, not in distress, fully awake and oriented, he denies chest pain or dyspnea. Or any other complaints. He is hemodynamically stable. WBC trending down to 13.8 K, INR is trended down to 2.4, while his Coumadin is held since admission. Creatinine is stable at 2.0 since admission. He is on broad-spectrum antibiotics DAPTOMYCIN and Zosyn as per ID team. Vascular surgery team are planning for debridement and amputation of the dictation cardiology input is appreciated, they recommended cardiac cath prior to lower extremity renovascular patient surgery, however high INR is not recommended, so vitamin K is a provided and patient may be bridged with heparin infusion length subtherapeutic INR. 06/16/2020 Patient was admitted with left foot wet gangrene and he underwent foot disarticulation yesterday , today she feels better as and no pain in the left leg area. 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 Wound cultures are pending. Hemodynamically stable. Leukocytosis trending down to 12.1 K. Creatinine is down to 1.8 Nephrology input is appreciated, they recommended adjusting the dose of Lovenox per renal function while holding his Coumadin for his history of atrial fibrillation Also urine analysis and renal ultrasound is ordered, most likely he has chronic kidney disease stage III further than acute kidney injury on the presentation. 06/17/2020 Patient awake, he underwent amputation of his left foot 2 days ago, he had pain at his left foot stump overnight but now is better controlled. He is hemodyna mically stable CBC is unremarkable, INR is 1.2, creatinine went up a little bit to 2.3 and nephrology on the case. Wound culture is growing gram-negative bacilli Independent Crop Consultant recommended to restart his Coumadin last night Consultants on the case including infectious disease, home care companion and cardio thoracic surgeon as well as news camera person. He remains on Zosyn, daptomycin, normal saline were stopped and continue with small dose of Lasix. 06/18/2020 Patient lying in bed comfortable, back to his baseline. No specific complaint. Pain is controlled and his left lower extremity status post amputation. Dressing is in place. Patient is monitored closely by several consultants including cardiology, vascular surgery, infectious disease and nephrology. Vitals and labs are stable including creatinine of 2 at baseline CTD stage III. Glucose controlled. WBC is normal at 9.5k Patient remains on Zosyn and daptomycin. Also on aspirin and warfarin was restarted with INR is 1.4, we will give 7 mg of Coumadin tonight. Plavix is still on hold and we will discuss with surgery was started.I discussed the case with home care companion Today about anticoagulation and they recommended to continue with Coumadin only for now, no need for bridging with Lovenox we will check INR tomorrow We will discuss with the other consultants including home care companion and vascular surgery about further plans 06/19/2020 I discussed the case with cardiology team today, possible patient would be going for cardiac catheterization and Dr. Gaston, and evaluated the patient. Hemodynamically he is stable. INR today is 2.0. Creatinine is stable at 1.9. Also I discussed the case with nephrology team and at bedside have a lot of questions and all their questions were answered to their satisfaction at my best. Patient currently remains on Zosyn and daptomycin as per ID team. IV fluids are on hold. Patient continue on aspirin. Plavix is a still on hold. 06/20/20 Patient yesterday underwent coronary artery revascularization procedure with Dr. Craft Using the left ventricle impella, patient underwent atherectomy of the left anterior descending artery with successful stenting of the mid left anterior d escending artery. Postprocedure Plavix has been added, patient to continue with aspirin Recommended by news camera person normal saline at 75 mL is provided before and after the procedure. Patient currently is off IV fluids. Warfarin also resumed patient currently lying in bed comfortably he had pain at surgical left leg earlier but now is controlled with pain medication and Dilaudid. Sugar is runni ng on the low side, patient is on Levemir 13 units daily[address] We will place patient on D5 half-normal saline at 50 mL per hour. Sodium is 137 Postprocedure his hemoglobin dropped to 7.1. We will monitor the patient's hemoglobin closely. Coumadin is resumed and INR is 1.8. Creatinine is stable and actually is slightly down to 1.8. Coronary artery disease, status post stent of the mid LAD Active Medications Generic Name Dose Route Start Last Admin Trade Name Freq PRN Reason Stop Dose Admin Acetaminophen 650 mg 06/13/20 09:33 Acetaminophen Tab 325 Mg Tab PO Q6HR PRN Mild Pain or Fever > 100.5 Hydrocodone Bitart/Acetaminophen 2 each 06/16/20 18:28 06/20/20 11:10 Hydrocodone/Apap 10-325mg 1 Each Tab PO 2 each Q6H PRN Administration Moderate Pain Al Hydroxide/Mg Hydroxide 30 ml 06/19/20 19:04 Mag Hydrox/Al Hydrox/Simeth 30 Ml Cup PO Q4HR PRN Heartburn Alprazolam 0.25 mg 06/19/20 13:46 Alprazolam 0.25 Mg Tab PO Q6HR PRN Mild Anxiety Alprazolam 0.5 mg 06/19/20 13:46 Alprazolam 0.5 Mg Tab PO Q6HR PRN Moderate Anxiety Aspirin 81 mg 06/21/20 09:00 Aspirin 81 Mg PO DAILY NEHA Atorvastatin Calcium 80 mg 06/19/20 21:00 06/19/20 21:08 Atorvastatin 80 Mg Tab PO 80 mg HS NEHA Administration Atropine Sulfate 0.5 mg 06/19/20 19:04 Atropine Sulfate 0.1 Mg/Ml 10ml Syringe IV ONCE PRN Symptomatic Bradycardia Carvedilol 12.5 mg 06/13/20 17:30 06/20/20 07:44 Carvedilol 12.5 Mg Tab PO 12.5 mg BID-W/MEALS NEHA Administration Clopidogrel Bisulfate 75 mg 06/20/20 09:00 06/20/20 08:55 Clopidogrel 75 Mg Tab PO 75 mg DAILY NEHA Administration Hydromorphone HCl 0.5 mg 06/13/20 09:33 06/19/20 07:38 Hydromorphone 0.5 Mg/0.5 Ml Syringe IVP 0.5 mg Q3HR PRN Administration Moderate Pain Hydromorphone HCl 1 mg 06/13/20 09:33 06/20/20 12:43 Hydromorphone 1 Mg/Ml 1 Ml Syringe IVP 1 mg Q3HR PRN Administration Severe Pain Daptomycin 500 mg/ Sodium 50 mls @ 100 mls/hr 06/13/20 16:00 06/20/20 15:09 Chloride IVPB 100 mls/hr Q24H NEHA Administration Protocol Piperacillin Sod/Tazobactam 100 mls @ 25 mls/hr 06/13/20 16:00 06/20/20 08:55 Sod 3.375 gm/ Sodium Chloride IVPB 25 mls/hr Q8HR NEHA Administration Sodium Chloride 1,000 mls @ 50 mls/hr 06/19/20 13:00 06/20/20 08:57 Saline 0.9% IV 75 mls/hr .Q20H NEHA Administration Heparin Sodium (Porcine) 10, 1,001 mls @ 999 mls/hr 06/20/20 07:00 000 unit/ Sodium Chloride IRRIGATION 06/20/20 23:00 ONCE PRN INTRA-OP Heparin Sodium (Porcine) 2,500 250.5 mls @ 250 mls/hr 06/20/20 07:00 unit/ Sodium Chloride IRRIGATION 06/20/20 23:00 ONCE PRN INTRA-OP Insulin Aspart 0 unit 06/13/20 21:00 06/20/20 12:41 Insulin Aspart (Novolog) 100 Unit/Ml Vial SQ Not Given ACHS [facility] Protocol Insulin Detemir 30 unit 06/14/20 07:00 06/20/20 07:45 Insulin Detemir (Levemir) 100 Unit/Ml Syr SQ 30 unit DAILY@0700 [facility] Administration Miscellaneous Information 1 each 06/19/20 19:04 Rx Info: Iv Contrast Was Given 1 Each Misc MISCELLANE 06/21/20 19:04 DAILY PRN Per Protocol Naloxone HCl 0.2 mg 06/13/20 09:33 Naloxone 0.4 Mg/Ml 1 Ml Vial IV Q2M PRN Opioid Reversal Nitroglycerin 0.4 mg 06/19/20 13:46 Nitroglycerin Sl Tabs 0.4 Mg Tab SUBLINGUAL Q5M PRN Chest Pain Nitroglycerin 0.4 mg 06/19/20 19:04 Nitroglycerin Sl Tabs 0.4 Mg Tab SUBLINGUAL Q5M PRN Chest Pain Pantoprazole Sodium 40 mg 06/16/20 07:30 06/20/20 07:44 Pantoprazole 40 Mg Tablet PO 40 mg [id number] [facility] Administration Zolpidem Tartrate 5 mg 06/19/20 19:04 Zolpidem 5 Mg Tab PO HS PRN Insomnia Objective - Vital Signs Vital signs: Vital Signs Temp 98.5 F 06/20/20 12:00 Pulse 76 06/20/20 14:00 Resp 12 06/20/20 14:00 BP 136/90 06/20/20 14:00 Pulse Ox 96 06/20/20 14:00 Intake & Output 06/19/20 06/20/20 06/20/20 18:59 06:59 18:59 Intake Total 390 1095 710 Output Total 190 1025 0 Balance 200 70 710 Weight 91.626 kg 91.2 kg 91.2 kg Intake: IV 200 795 470 Piperacillin-Tazobactam 3 100 100 .375 gm In Sodium Chloride 0.9% 100 ml @ 25 mls/hr IVPB Q8HR [facility] Rx# :[id number] Sodium Chloride 0.9% 1, 695 370 000 ml @ 50 mls/hr IV . Q20H NEHA Rx#:[id number] Oral 190 300 240 Output: Urine 190 1025 0 Other: Voiding Method Urinal Urinal Urinal - Exam GENERAL: The patient is alert and oriented x3, not in any acute distress. Well developed, well nourished. HEENT: Pupils are round and equally reacting to light. EOMI. No scleral icterus. No conjunctival pallor. Normocephalic, atraumatic. No pharyngeal erythema. No thyromegaly. CARDIOVASCULAR: S1 and S2 present. No murmurs, rubs, or gallops. PULMONARY: Chest is clear to auscultation, no wheezing or crackles. ABDOMEN: Soft, nontender, nondistended, normoactive bowel sounds. No palpable organomegaly. MUSCULOSKELETAL: No joint swelling or deformity. -EXTREMITIES: No cyanosis, clubbing, or pedal edema. Left leg is status post amputation of the left foot, dressing is in place NEUROLOGICAL: Gross neurological examination did not reveal any focal deficits. SKIN: No rashes. No petechiae - Labs CBC & Chem 7: 06/20/20 03:45 06/20/20 03:45 Labs: Abnormal Lab Results - Last 24 Hours (Table) 06/19/20 06/20/20 06/20/20 Range/Units 17:01 03:45 03:45 RBC 2.59 L (4.30-5.90) m/uL Hgb 7.1 L D (13.0-17.5) gm/dL Hct 22.2 L (39.0-53.0) % RDW 16.2 H (11.5-15.5) % PT 26.8 H 17.4 H (9.0-12.0) sec INR 2.8 H 1.8 H (<1.2) Chloride (98-107) mmol/L BUN (9-20) mg/dL Creatinine (0.66-1.25) mg/dL Glucose (74-99) mg/dL Calcium (8.4-10.2) mg/dL 06/20/20 Range/Units 03:45 RBC (4.30-5.90) m/uL Hgb (13.0-17.5) gm/dL Hct (39.0-53.0) % RDW (11.5-15.5) % PT (9.0-12.0) sec INR (<1.2) Chloride 111 H (98-107) mmol/L BUN 30 H (9-20) mg/dL Creatinine 1.84 H (0.66-1.25) mg/dL Glucose 68 L (74-99) mg/dL Calcium 8.1 L (8.4-10.2) mg/dL Microbiology - Last 24 Hours (Table) 06/15/20 18:45 Anaerobic Culture - Final Foot - Left 06/13/20 09:38 Blood Culture - Final Blood No Growth after 144 hours 06/13/20 09:38 Blood Culture - Final Blood No Growth after 144 hours Assessment and Plan Assessment: Gangrene of the left foot, x-rays suspicious for cellulitis, myositis or an abscess with possible osteomyelitis and gas-forming organisms in the soft tissue. S/P articulation of the left foot coronary artery disease, triple coronary artery disease status post cardiac cath and stent placement in the LAD Peripheral vascular disease, need a vascular surgery after cardiac cath. Including left external iliac artery chronic kidney disease stage III Diabetes mellitus Elevated lactic acid Hyperlipidemia Hypertension Chronic atrial fibrillation on Coumadin Plan: This is a pleasant 65 years old male who presents with gangrenous left foot. Continue with Lasix, continue with anticoagulation with Coumadin , Continue with antibiotics and follow-up recommendation of infectious disease team. Also home care companion and vascular surgeon on the case. Start D5 half normal saline. Continue with Zosyn and daptomycin Follow-up recommendation by home care companion. Continue with Lasix. Patient now is pending for left lower extremity revascularization surgery follow-up creatinine. Hold vasotec, follow-up nephrology consult team. Pain management Independent Crop Consultant recommended cardiac cath to be followed by lower extremity vascular surgery, however CTS recommend controlling infection prior to revascularization Labs and medication were reviewed.. Continue same treatment. Continue with symptomatic treatment. Resume home medication. Monitor lytes and vitals. DVT and GI prophylaxis. Further recommendations depends on the clinical course of the patient DVT prophylaxis: Warfarin GI Prophylaxis: Ppi PT/OT: Pending Prognosis is guarded
[2020-06-20] MEDS ORDERED: DEXTROSE 5%-0.45% NACL 1,000 ML IV SCH (19:45)
[2020-06-20 20:23] LABS: Glucose,Whole Blood 143 mg/dL (75-99)
[2020-06-20] MEDS: ATORVASTATIN 80 MG TAB PO SCH (21:58)
[2020-06-21] MEDS: HYDROmorphone 1 MG/ML 1 ML SYRINGE IVP PRN ×5 (02:35→16:34)
[2020-06-21 04:09] LABS: INR 1.4 (<1.2); Prothrombin Time 14.5 sec (9.0-12.0)
[2020-06-21 04:10] LABS: Calcium 8.1 mg/dL (8.4-10.2); Potassium 4.7 mmol/L (3.5-5.1)
[2020-06-21 04:32] LABS: Anisocytosis Slight; Basophils % (A) 0 %; Eosinophils # (A) 0.2 k/uL (0-0.7); Eosinophils % (A) 1 %; HCT 20.9 % (39.0-53.0); Hypochromasia Marked; Lymphocytes # (A) 1.1 k/uL (1.0-4.8); Lymphocytes % (A) 10 %; MCH 27.4 pg (25.0-35.0); MCHC 31.8 g/dL (31.0-37.0); MCV 86.1 fL (80.0-100.0); Mean Platelet Volume 7.2; Monocytes # (A) 0.6 k/uL (0-1.0); Monocytes % (A) 5 %; Neutrophils # (A) 9.3 k/uL (1.3-7.7); Neutrophils % (A) 82 %; Platelet Count 272 k/uL (150-450); Poikilocytosis Slight; RBC 2.42 m/uL (4.30-5.90); RDW 17.1 % (11.5-15.5); WBC 11.3 k/uL (3.8-10.6)
[2020-06-21 04:35] LABS: HGB 6.6 gm/dL (13.0-17.5)
[2020-06-21] MEDS: HYDROcodone/APAP 10-325MG 1 EACH TAB PO PRN ×4 (05:25→23:54)
[2020-06-21] MEDS: carvediloL 12.5 MG TAB PO SCH ×2 (06:59→16:34)
[2020-06-21] MEDS: PANTOPRAZOLE 40 MG TABLET PO SCH (06:59)
[2020-06-21 07:21] LABS: Glucose,Whole Blood 97 mg/dL (75-99)
[2020-06-21] MEDS: INSULIN ASPART (NovoLOG) 100 UNIT/ML VIAL SQ SCH ×4 (07:33→21:58)
[2020-06-21] MEDS: PIPERACILLIN-TAZOBACTAM 3.375 GM in SODIUM CHLORIDE 0.9% 100 ML IVPB SCH ×3 (07:57→23:54)
[2020-06-21] MEDS: CLOPIDOGREL 75 MG TAB PO SCH (07:57)
[2020-06-21] MEDS: ASPIRIN 81 MG PO SCH (07:57)
[2020-06-21] MEDS: INSULIN DETEMIR (LEVEMIR) 100 UNIT/ML SYR SQ SCH (07:58)
[2020-06-21] MEDS ORDERED: DARBEPOETIN ALFA 60 MCG/0.3 ML SYRINGE SQ SCH (10:00)
[2020-06-21] MEDS: SODIUM CHLORIDE 0.9% 1,000 ML IV SCH (10:35)
--- NOTE | 2020-06-21 12:13 | P.PN ---
Subjective Progress Note Date: 06/21/20 Principal diagnosis: This patient remained symptomatically stable. He did have a sizable hematoma in the right groin. His hemoglobin dropped below 7 g. He is getting of one unit of blood transfusion. Patient denies any chest pain or shortness of breath. Still have some discomfort in the right foot. He is going to have surgery on Monday, on the left leg by Dr. Fox. Cardiac-umanzor, patient is stable. He'll continue current medical therapy. This is a 65-year-old male with history of coronary artery disease with previous PCI of the circumflex, PAD and persistent atrial fibrillation, hypertension and dyslipidemia who had left foot" by Dr. Fox recently. He also has coronary artery disease and was evaluated by cardiac surgeons and felt that patient is not a good candidate for bypass surgery. Dr. Gaston has done atherectomy and stent placement of the LAD and also used Impella. Patient developed a hematoma, which was reduced with him stop. This was evaluated by Dr. Gaston this morning. Patient is otherwise doing well. Denies any chest pain or shortness of breath. Still having significant pain in the leg from surgery. His vital signs are stable. Lab work showed drop in hemoglobin to 7.1. His creatinine is about 1.84 which has been stable compared to the previous readings. Being followed by nephrology also. Continue current medical therapy and increase activity as tolerated Objective - Vital Signs Vital signs: Vital Signs Temp 96.2 F L 06/21/20 09:28 Pulse 77 06/21/20 09:28 Resp 20 06/21/20 09:28 BP 118/76 06/21/20 09:28 Pulse Ox 98 06/21/20 09:18 Intake & Output 06/20/20 06/21/20 06/21/20 18:59 06:59 18:59 Intake Total 1300 800 490 Output Total 350 1800 275 Balance 950 -1000 215 Weight 91.2 kg Intake: IV 770 600 250 Piperacillin-Tazobactam 3 200 100 .375 gm In Sodium Chloride 0.9% 100 ml @ 25 mls/hr IVPB Q8HR [facility] Rx# :[id number] Sodium Chloride 0.9% 1, 570 600 150 000 ml @ 50 mls/hr IV . Q20H NEHA Rx#:[id number] Intake, IV Titration 50 Amount DAPTOmycin 500 mg In 50 Sodium Chloride 0.9% 50 ml @ 100 mls/hr IVPB Q24H [facility] Rx#:[id number] Oral 480 200 240 Blood Product 0 Rc Pheresis As-3 Unit 0 [id number] Output: Urine 350 1800 275 Other: Voiding Method Urinal Indwelling Catheter Indwelling Catheter - Exam GENERAL EXAM: Patient is alert and oriented and doesn't appear to be in any acute distress HEENT: Normocephalic. Normal reaction of pupils, equal size, normal range of extraocular motion. No erythema or exudates in the throat. NECK: No masses, no nuchal rigidity. CHEST: No chest wall deformity. LUNGS: Equal air entry with no crackles or wheeze. HEART: S1 and S2 normal with no audible mumurs or gallops. Regular rhythm, femorals equal on both sides.. ABDOMEN: No hepatosplenomegaly, normal bowel sounds, no guarding or rigidity. SKIN: No rashes CENTRAL NERVOUS SYSTEM: No focal deficits. EXTREMITIES: No cyanosis, clubbing or edema. Right groin: Patient developed a moderate hematoma, stable - Labs CBC & Chem 7: 06/21/20 03:26 06/21/20 03:26 Labs: Abnormal Lab Results - Last 24 Hours (Table) 06/20/20 06/20/20 06/20/20 Range/Units 16:37 16:56 20:21 WBC (3.8-10.6) k/uL RBC (4.30-5.90) m/uL Hgb (13.0-17.5) gm/dL Hct (39.0-53.0) % RDW (11.5-15.5) % Neutrophils # (1.3-7.7) k/uL PT (9.0-12.0) sec INR (<1.2) Sodium (137-145) mmol/L Chloride (98-107) mmol/L BUN (9-20) mg/dL Creatinine (0.66-1.25) mg/dL POC Glucose (mg/dL) 64 L 71 L 143 H (75-99) mg/dL Calcium (8.4-10.2) mg/dL Crossmatch 06/21/20 06/21/20 06/21/20 Range/Units 03:26 03:26 03:26 WBC 11.3 H (3.8-10.6) k/uL RBC 2.42 L (4.30-5.90) m/uL Hgb 6.6 L* (13.0-17.5) gm/dL Hct 20.9 L (39.0-53.0) % RDW 17.1 H (11.5-15.5) % Neutrophils # 9.3 H (1.3-7.7) k/uL PT 14.5 H (9.0-12.0) sec INR 1.4 H (<1.2) Sodium 136 L (137-145) mmol/L Chloride 112 H (98-107) mmol/L BUN 28 H (9-20) mg/dL Creatinine 1.77 H (0.66-1.25) mg/dL POC Glucose (mg/dL) (75-99) mg/dL Calcium 8.1 L (8.4-10.2) mg/dL Crossmatch 06/21/20 Range/Units 06:34 WBC (3.8-10.6) k/uL RBC (4.30-5.90) m/uL Hgb (13.0-17.5) gm/dL Hct (39.0-53.0) % RDW (11.5-15.5) % Neutrophils # (1.3-7.7) k/uL PT (9.0-12.0) sec INR (<1.2) Sodium (137-145) mmol/L Chloride (98-107) mmol/L BUN (9-20) mg/dL Creatinine (0.66-1.25) mg/dL POC Glucose (mg/dL) (75-99) mg/dL Calcium (8.4-10.2) mg/dL Crossmatch See Detail Assessment and Plan (1) CAD (coronary artery disease) Current Visit: Yes Status: Acute Code(s): I25.10 - ATHSCL HEART DISEASE OF [place] CORONARY ARTERY W/O ANG PCTRS SNOMED Code(s): 74221921 (2) Status post amputation Current Visit: Yes Status: Acute Code(s): Z89.9 - ACQUIRED ABSENCE OF LIMB, UNSPECIFIED SNOMED Code(s): 71870168 (3) Gangrene of left foot Current Visit: Yes Status: Acute Code(s): I96 - GANGRENE, NOT ELSEWHERE CLASSIFIED SNOMED Code(s): 72951055234609461 (4) Chronic renal failure Current Visit: Yes Status: Acute Code(s): N18.9 - CHRONIC KIDNEY DISEASE, UNSPECIFIED SNOMED Code(s): 07031487 (5) Chronic anemia Current Visit: Yes Status: Acute Code(s): D64.9 - ANEMIA, UNSPECIFIED SNOMED Code(s): 277403974 Plan: Patient is critically stable. Denies any chest pain or shortness of breath. Hemoglobin dropped most probably from hematoma. He is receiving blood transfusion. Surgery on the right leg on Monday
--- NOTE | 2020-06-21 14:41 | PN ---
PROGRESS NOTE Patient is seen for followup for acute kidney injury and chronic kidney disease. He is currently comfortable. Denies any significant complaints. EXAMINATION: Blood pressure was 110/68, heart rate 73 per minute, he is afebrile. Examination of the heart S1, S2. Examination of the lungs, bilateral breath sounds are heard. Decreased breath sounds at the bases. Abdomen is soft, nontender. Examination of lower extremities shows both extremities to be currently wrapped. LABS: Show hemoglobin 6.6, sodium 136, potassium 4.7, chloride 112, BUN 28, creatinine 1.7. ASSESSMENT: 1. Acute kidney injury, acute tubular necrosis, nonoliguric with some improvement in renal function. Creatinine at 1.7. The patient, however, received IV contrast for cardiac catheterization yesterday. Good urine output. Continue to monitor for now. 2. Chronic kidney disease stage IIIB secondary to diabetic kidney disease and nephrosclerosis. Baseline creatinine around 2. 3. Left foot gangrene status post amputation June 15. 4. Patient had disarticulation of the foot for infected wet gangrene of the left foot. This was performed on 06/15/2020. 5. Anemia, no active bleeding noted. Currently receiving packed RBCs transfusion. I will check iron profile from labs that were drawn before the blood transfusion and add Aranesp. 6. Chronic atrial fibrillation maintained on anticoagulation and beta blockers. 7. Coronary artery disease status post cardiac catheterization on 06/19/2020 with coronary stent placement. 8. Chronic atrial fibrillation, currently controlled. PLAN: May continue with IV fluids for one more day. Encourage increased oral intake. Repeat labs in a.m. Continue to avoid nephrotoxic agents. Add Aranesp and check iron profile. MMODL / IJN: [id number] /
[2020-06-21] MEDS: DAPTOmycin 500 MG in SODIUM CHLORIDE 0.9% 50 ML IVPB SCH (15:02)
[2020-06-21 16:44] LABS: Glucose,Whole Blood 156 mg/dL (75-99)
[2020-06-21 16:55] LABS: % Iron Saturation 7.44 (15.00-50.00)
[2020-06-21] MEDS: FERROUS SULFATE 325 MG TAB PO SCH (17:57)
--- NOTE | 2020-06-21 18:54 | PN ---
PROGRESS NOTE DATE OF SERVICE: 06/21/2020 REASON FOR FOLLOWUP: Left diabetic foot infection. INTERVAL HISTORY: Patient is currently afebrile. Patient is breathing comfortably. He denies having any chest pain. No cough, no abdominal pain. No diarrhea. PHYSICAL EXAMINATION: Blood pressure 123/81 with pulse of 78. Temp is 97.8. He is 96% on room air. General description is an elderly male lying in bed in no distress. Respiratory system: Unlabored breathing, clear to auscultation anteriorly. Heart S1, S2. Regular rate and rhythm. Abdomen soft, no tenderness. Left foot is currently covered. No drainage on the dressing. LABS: Hemoglobin 6.7, white count 11.3, BUN of 28, creatinine is 1.77. DIAGNOSTIC IMPRESSION AND PLAN: Patient with left diabetic foot infection mostly ischemic. Culture with Providencia MRSA. Patient is covered with Zosyn and daptomycin. Low hemoglobin being monitored by the admitting team. Continue current antibiotics while inpatient and monitor clinical course closely. Continue supportive care. MMODL / IJN: [id number] /
[2020-06-21 21:39] LABS: Glucose,Whole Blood 124 mg/dL (75-99)
[2020-06-21] MEDS: HYDROmorphone 0.5 MG/0.5 ML SYRINGE IVP PRN (21:58)
[2020-06-21] MEDS: ATORVASTATIN 80 MG TAB PO SCH (21:58)
[2020-06-22] MEDS: HYDROmorphone 0.5 MG/0.5 ML SYRINGE IVP PRN ×2 (00:52→04:11)
[2020-06-22 03:48] LABS: Anisocytosis Slight; Basophils % (A) 0 %; Eosinophils # (A) 0.2 k/uL (0-0.7); Eosinophils % (A) 2 %; HCT 22.8 % (39.0-53.0); Hypochromasia Marked; Lymphocytes # (A) 0.9 k/uL (1.0-4.8); Lymphocytes % (A) 8 %; MCH 26.7 pg (25.0-35.0); MCHC 30.5 g/dL (31.0-37.0); MCV 87.3 fL (80.0-100.0); Mean Platelet Volume 7.1; Monocytes # (A) 0.5 k/uL (0-1.0); Monocytes % (A) 4 %; Neutrophils % (A) 84 %; Platelet Count 284 k/uL (150-450); Poikilocytosis Slight; RBC 2.61 m/uL (4.30-5.90); RDW 17.7 % (11.5-15.5); WBC 10.6 k/uL (3.8-10.6)
[2020-06-22 04:00] LABS: INR 1.5 (<1.2); Prothrombin Time 15.5 sec (9.0-12.0)
[2020-06-22] MEDS: SODIUM CHLORIDE 0.9% 1,000 ML IV SCH ×2 (04:10→21:09)
[2020-06-22 04:16] LABS: Calcium 7.9 mg/dL (8.4-10.2); Potassium 4.6 mmol/L (3.5-5.1)
[2020-06-22] MEDS: HYDROcodone/APAP 10-325MG 1 EACH TAB PO PRN ×4 (06:13→23:10)
[2020-06-22 07:30] LABS: Glucose,Whole Blood 114 mg/dL (75-99)
[2020-06-22] MEDS: INSULIN ASPART (NovoLOG) 100 UNIT/ML VIAL SQ SCH ×4 (07:30→20:56)
[2020-06-22] MEDS: INSULIN DETEMIR (LEVEMIR) 100 UNIT/ML SYR SQ SCH (07:39)
[2020-06-22] MEDS: FERROUS SULFATE 325 MG TAB PO SCH ×2 (07:39→17:00)
[2020-06-22] MEDS: PANTOPRAZOLE 40 MG TABLET PO SCH (07:39)
[2020-06-22] MEDS: carvediloL 12.5 MG TAB PO SCH ×2 (07:39→17:00)
[2020-06-22] MEDS: PIPERACILLIN-TAZOBACTAM 3.375 GM in SODIUM CHLORIDE 0.9% 100 ML IVPB SCH ×3 (08:36→23:10)
[2020-06-22] MEDS: HYDROmorphone 1 MG/ML 1 ML SYRINGE IVP PRN ×4 (08:37→20:56)
[2020-06-22] MEDS: ASPIRIN 81 MG PO SCH (08:37)
[2020-06-22] MEDS: CLOPIDOGREL 75 MG TAB PO SCH (08:38)
--- NOTE | 2020-06-22 09:33 | PN ---
PROGRESS NOTE Mr. Phan underwent a high-risk PCI of LAD on June 19 from the right femoral approach with Impella. The patient now has a hematoma which is moderate-sized without bruit. He is going to have some vascular surgery of the left lower extremity by Dr. Fox tomorrow. He is resting comfortably, has no chest discomfort. His seems to be comfortable. Right groin hematoma is stable. His hemoglobin is about 7.0 after receiving a unit of blood. His renal function is stable at about 1.9. He is resting comfortably without symptoms. On examination, blood pressure is 140/70, pulse rate is 72, appears to be in chronic atrial fibrillation. JVD 1 cm. No carotid bruit. S1-S2 heard normally. Short systolic murmur noted. Lungs revealed decent air entry. Lower extremities reveal amputation below-knee of the left leg. Lower right groin has a moderate-sized hematoma. No bruit. Pulses are diminished. RECOMMENDATION: I am recommending that we continue dual antiplatelet therapy for now and patient can proceed with vascular surgery of his left lower extremity, but given the circumstances, the risk is high for any noncardiac surgery. I discussed this with the patient. MMODL / IJN: [id number] /
[2020-06-22 11:30] LABS: Glucose,Whole Blood 311 mg/dL (75-99)
--- NOTE | 2020-06-22 12:29 | PN ---
PROGRESS NOTE Patient is seen for followup for acute kidney injury. He is currently comfortable. Denies any significant complaints. Patient will be going for lower extremity bypass surgery tomorrow by Dr. Fox. He denies any significant complaints today. He has good urine output. EXAMINATION: Today blood pressure was 153/64, heart rate 112 per minute, he is afebrile. Examination of the heart S1, S2. Examination of lungs decreased breath sounds at bases. Abdomen is soft, nontender. Examination of lower extremities shows bilateral extremities to be wrapped. The patient has had disarticulation of his left foot. CHIEF ESTIMATOR exam grossly intact. LABS: Show hemoglobin 7.0, sodium 138, potassium 4.6, BUN 29, creatinine 1.9. ASSESSMENT: 1. Acute kidney injury acute tubular necrosis, currently stable and somewhat improved. Creatinine is higher today, mostly secondary to severe anemia yesterday. The patient is otherwise hemodynamically stable. No nephrotoxic agents on board. Patient is maintained on saline at about 50 mL an hour. 2. 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 Fox. 3. Chronic kidney disease stage IIIB secondary to diabetic kidney disease and nephrosclerosis. Baseline creatinine close to 2 mg/dL. 4. Anemia acute blood loss. No active bleeding noted at this time. The patient is status post packed RBCs transfusion. He was started on Aranesp. Iron studies were ordered and iron saturation was low at 7.4%. The patient will be started on IV iron. 5. Chronic atrial fibrillation, rate is controlled. PLAN: Continue with Aranesp. Add IV iron. Continue antibiotics. Repeat labs in a.m. MMODL / IJN: [id number] /
[2020-06-22] MEDS: SODIUM FERRIC GLUCONAT-SUCROSE 125 MG in SODIUM CHLORIDE 0.9% 100 ML IVPB SCH (13:00)
--- NOTE | 2020-06-22 16:22 | P.PN ---
Subjective 65 years old male with past medical history of diabetes mellitus, hyperlipidemia, hypertension, atrial fibrillation on Coumadin. He is a patient of Dr. Lambert and was sent by his surgeon Dr. Fox to the hospital for gangrenous left foot, patient could not service 54 hole long is suffering from this problem except for a long time it was slowly progressive. Currently his left foot looks like as well as the distal part of the leg with area of fluctuation and discoloration. Patient has been sent to the hospital by his vascular surgeon Dr. Fox recommended also vascular intervention by construction inspector Dr. Gaston for internal and external iliac artery disease Vitals looks stable. Labs showed leukocytosis with 16.0 K, hemoglobin 11.4, platelet 5.5. INR is 2.7. Potassium 5.6, creatinine 2.19, unknown baseline EKG showing atrial fibrillation at a rate of 88 with QTC of 510, left foot x-ray showing osteomyelitis with possible gas-forming organisms within the soft tissue, correlate for cellulitis, possible myositis an abscess Lactic acid is 2.3. Liver enzymes not elevated On admission patient was started on Unasyn and IV vancomycin Consult was placed for Dr. Gaston, infectious disease team and Dr. Omer on admission patient 06/14/2020 Patient admitted with left foot gangrene, no marked change in his clinical picture, Vitas looks stable and patient is afebrile. Leukocytosis improved to 14 K. Sugar is controlled and lactic acid is back to normal. BMP is pending because his and send out test Vascular Surgery and infectious disease on the case. Access Rep consult is pending 06/15/2020 Patient with left foot and possible distal leg gangrene, stable with no proximal progression compared to the last couple days, dressing is in place. Patient looks comfortable, not in distress, fully awake and oriented, he denies chest pain or dyspnea. Or any other complaints. He is hemodynamically stable. WBC trending down to 13.8 K, INR is trended down to 2.4, while his Coumadin is held since admission. Creatinine is stable at 2.0 since admission. He is on broad-spectrum antibiotics DAPTOMYCIN and Zosyn as per ID team. Vas cular surgery team are planning for debridement and amputation of the dictation cardiology input is appreciated, they recommended cardiac cath prior to lower extremity renovascular patient surgery, however high INR is not recommended, so vitamin K is a provided and patient may be bridged with heparin infusion length subtherapeutic INR. 06/16/2020 Patient was admitted with left foot wet gangrene and he underwent foot disarticulation yesterday , today she feels better as and no pain in the left l eg area. 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 Wound cultures are pending. Hemodynamically stable. Leukocytosis trending down to 12.1 K. Creatinine is down to 1.8 Nephrology input is appreciated, they recommended adjusting the dose of Lovenox per renal function while holding his Coumadin for his history of atrial fibrillation Also urine analysis and renal ultrasound is ordered, most likely he has chronic kidney disease stage III further than acute kidney injury on the presentation. 06/17/2020 Patient awake, he underwent amputation of his left foot 2 days ago, he had pain at his left foot stump overnight but now is better controlled. He is hemodynamically stable CBC is unremarkable, INR is 1.2, creatinine went up a little bit to 2.3 and nephrology on the case. Wound culture is growing gram-negative bacilli Access Rep recommended to restart his Coumadin last night Consultants on the case including infectious disease, construction inspector and cardiothoracic surgeon as well as scrap sorter. He remains on Zosyn, daptomycin, normal saline were stopped and continue with small dose of Lasix. 06/18/2020 Patient lying in bed comfortable, back to his baseline. No specific complaint. Pain is controlled and his left lower extremity status post amputation. Dressing is in place. Patient is monitored closely by several consultants including cardiology, vascular surgery, infectious disease and nephrology. Vitals and labs are stable including creatinine of 2 at baseline CTD stage III. Glucose controlled. WBC is normal at 9.5k Patient remains on Zosyn and daptomycin. Also on aspirin and warfarin was restarted with INR is 1.4, we will give 7 mg of Coumadin tonight. Plavix is still on hold and we will discuss with surgery was started.I discussed the case with construction inspector Today about anticoagulation and they recommended to continue with Coumadin only for now, no need for bridging with Lovenox we will check INR tomorrow We will discuss with the other consultants including construction inspector and vascular surgery about further plans 06/19/2020 I discussed the case with cardiology team today, possible patient would be going for cardiac catheterization and Dr. Gaston, and evaluated the patient. Hemodynamically he is stable. INR today is 2.0. Creatinine is stable at 1.9. Also I discussed the case with nephrology team and at bedside have a lot of questions and all their questions were answered to their satisfaction at my best. Patient currently remains on Zosyn and daptomycin as per ID team. IV fluids are on hold. Patient continue on aspirin. Plavix is a still on hold. 06/20/20 Patient yesterday underwent coronary artery revascularization procedure with Dr. Craft Using the left ventricle impella, patient underwent atherectomy of the left anterior descending artery with successful stenting of the mid left anterior descending artery. Postprocedure Plavix has been added, patient to continue with aspirin Recommended by scrap sorter normal saline at 75 mL is provided before and after the procedure. Patient currently is off IV fluids. Warfarin also resumed patient currently lying in bed comfortably he had pain at surgical left leg earlier but now is controlled with pain medication and Dilaudid. Sugar is running on the low side, patient is on Levemir 13 units daily[address] We will place patient on D5 half-normal saline at 50 mL per hour. Sodium is 137 Postprocedure his hemoglobin dropped to 7.1. We will monitor the patient's hem oglobin closely. Coumadin is resumed and INR is 1.8. Creatinine is stable and actually is slightly down to 1.8. 06/22/2020 Patient will undergo renal aspiration procedure for the left leg. Patient has probable tension and MRSA in the left leg wounds. Patient is presently on daptomycin and Zosyn for these. Constitutional: Denied any fatigue denied any fever. Cardio vascular: denied any chest pain, palpitations Gastrointestinal denied any nausea vomiting Pulmonary: Denied any shortness of breath cough Neurologic denied any new focal deficits All inpatient medications were reviewed and appropriate changes in these medications as dictated in the interval history and assessment and plan. Objective - Vital Signs Vital signs: Vital Signs Temp 98.0 F 06/22/20 14:56 Pulse 66 06/22/20 15:00 Resp 12 06/22/20 15:00 BP 123/96 06/22/20 15:00 Pulse Ox 96 06/22/20 15:00 Intake & Output 06/21/20 06/22/20 06/22/20 18:59 06:59 18:59 Intake Total 1899 750 960 Output Total 930 705 380 Balance 969 45 580 Weight 93.8 kg Intake: IV 850 650 500 Piperacillin-Tazobactam 3 200 100 100 .375 gm In Sodium Chloride 0.9% 100 ml @ 25 mls/hr IVPB Q8HR [facility] Rx# :[id number] Sodium Chloride 0.9% 1, 650 550 400 000 ml @ 50 mls/hr IV . Q20H [facility] Rx#:[id number] Intake, IV Titration 50 100 Amount DAPTOmycin 500 mg In 50 Sodium Chloride 0.9% 50 ml @ 100 mls/hr IVPB Q24H [facility] Rx#:[id number] Sodium Ferric Gluconat- 100 Sucrose 125 mg In Sodium Chloride 0.9% 100 ml @ 100 mls/hr IVPB DAILY [facility] Rx#:[id number] Oral 720 100 360 Blood Product 279 0 Rc Pheresis As-3 Unit 279 [id number] Rc Pheresis As3 Unit 0 [id number] Output: Urine 930 705 380 Other: Voiding Method Indwelling Catheter Indwelling Catheter Indwelling Catheter - Exam GENERAL: The patient is alert and oriented x3, not in any acute distress. Well developed, well nourished. HEENT: Pupils are round and equally reacting to light. EOMI. No scleral icterus. No conjunctival pallor. Normocephalic, atraumatic. No pharyngeal erythema. No thyromegaly. CARDIOVASCULAR: S1 and S2 present. No murmurs, rubs, or gallops. PULMONARY: Chest is clear to auscultation, no wheezing or crackles. ABDOMEN: Soft, nontender, nondistended, normoactive bowel sounds. No palpable organomegaly. MUSCULOSKELETAL: No joint swelling or deformity. -EXTREMITIES: No cyanosis, clubbing, or pedal edema. Left leg is status post amputation of the left foot, dressing is in place NEUROLOGICAL: Gross neurological examination did not reveal any focal deficits. SKIN: No rashes. No petechiae - Labs CBC & Chem 7: 06/22/20 03:16 06/22/20 03:16 Labs: Abnormal Lab Results - Last 24 Hours (Table) 06/21/20 06/21/20 06/21/20 Range/Units 03:26 06:34 16:43 RBC (4.30-5.90) m/uL Hgb (13.0-17.5) gm/dL Hct (39.0-53.0) % MCHC (31.0-37.0) g/dL RDW (11.5-15.5) % Neutrophils # (1.3-7.7) k/uL Lymphocytes # (1.0-4.8) k/uL PT (9.0-12.0) sec INR (<1.2) Chloride (98-107) mmol/L BUN (9-20) mg/dL Creatinine (0.66-1.25) mg/dL Glucose (74-99) mg/dL POC Glucose (mg/dL) 156 H (75-99) mg/dL Calcium (8.4-10.2) mg/dL Iron 16 L (65-175) ug/dL TIBC 215 L (228-460) ug/dL % Saturation 7.44 L (15.00-50.00) Crossmatch See Detail 06/21/20 06/22/20 06/22/20 Range/Units 21:37 03:16 03:16 RBC 2.61 L (4.30-5.90) m/uL Hgb 7.0 L (13.0-17.5) gm/dL Hct 22.8 L (39.0-53.0) % MCHC 30.5 L (31.0-37.0) g/dL RDW 17.7 H (11.5-15.5) % Neutrophils # 9.0 H (1.3-7.7) k/uL Lymphocytes # 0.9 L (1.0-4.8) k/uL PT 15.5 H (9.0-12.0) sec INR 1.5 H (<1.2) Chloride (98-107) mmol/L BUN (9-20) mg/dL Creatinine (0.66-1.25) mg/dL Glucose (74-99) mg/dL POC Glucose (mg/dL) 124 H (75-99) mg/dL Calcium (8.4-10.2) mg/dL Iron (65-175) ug/dL TIBC (228-460) ug/dL % Saturation (15.00-50.00) Crossmatch 06/22/20 06/22/20 06/22/20 Range/Units 03:16 07:29 11:28 RBC (4.30-5.90) m/uL Hgb (13.0-17.5) gm/dL Hct (39.0-53.0) % MCHC (31.0-37.0) g/dL RDW (11.5-15.5) % Neutrophils # (1.3-7.7) k/uL Lymphocytes # (1.0-4.8) k/uL PT (9.0-12.0) sec INR (<1.2) Chloride 111 H (98-107) mmol/L BUN 29 H (9-20) mg/dL Creatinine 1.90 H (0.66-1.25) mg/dL Glucose 103 H (74-99) mg/dL POC Glucose (mg/dL) 114 H 311 H (75-99) mg/dL Calcium 7.9 L (8.4-10.2) mg/dL Iron (65-175) ug/dL TIBC (228-460) ug/dL % Saturation (15.00-50.00) Crossmatch Assessment and Plan Plan: Gangrene of the left foot, x-rays suspicious for cellulitis, myositis or an abscess with possible osteomyelitis and gas-forming organisms in the soft tissue. S/P articulation of the left foot coronary artery disease, triple coronary artery disease status post cardiac cath and stent placement in the LAD Peripheral vascular disease, need a vascular surgery after cardiac cath. In cluding left external iliac artery chronic kidney disease stage III Diabetes mellitus Elevated lactic acid Hyperlipidemia Hypertension Chronic atrial fibrillation on Coumadin Plan: This is a pleasant 65 years old male who presents with gangrenous left foot. Continue with Lasix, continue with anticoagulation with Coumadin , Continue with antibiotics and follow-up recommendation of infectious disease team. Patient will undergo revascularization procedure for left leg. On D5 half normal saline. Continue with Zosyn and daptomycin Follow-up recommendation by construction inspector. Continue with Lasix. Patient now is pending for left lower extremity revascularization surgery follow-up creatinine. Hold vasotec, follow-up nephrology consult team. Pain management Access Rep recommended cardiac cath to be followed by lower extremity vascular surgery, however CTS recommend controlling infection prior to revascularization Labs and medication were reviewed.. DVT prophylaxis: Warfarin GI Prophylaxis: Ppi PT/OT: Pending Prognosis is guarded
[2020-06-22 16:51] LABS: Glucose,Whole Blood 106 mg/dL (75-99)
[2020-06-22] MEDS: DAPTOmycin 500 MG in SODIUM CHLORIDE 0.9% 50 ML IVPB SCH (17:01)
--- NOTE | 2020-06-22 17:27 | PN ---
DATE OF SERVICE: 06/22/2020 PROGRESS NOTE This is a 65-year-old gentleman. The patient has gangrene of the foot. The patient went for disarticulation above the ankle joint. The patient also has a history of coronary artery disease. Patient went for angioplasty by Cardiology. The patient's left external iliac has a high-grade stenosis. Profunda is not visualized. The patient is scheduled to have surgery tomorrow. Discussed with Dr. Tucker. Will proceed with this procedure tomorrow. Plan is left arterectomy with patch angioplasty and profundoplasty, possibly stent placement. Risks and complications of bleeding, infection, heart attack, thrombosis, limb loss have been discussed with the patient and the family. They understand. MMODL / IJN: [id number] / MTDMatt
[2020-06-22 20:25] LABS: % Iron Saturation 10.46 (15.00-50.00)
[2020-06-22 20:48] LABS: Ferritin 141.2 ng/mL (22.0-322.0)
[2020-06-22 20:53] LABS: Glucose,Whole Blood 136 mg/dL (75-99)
[2020-06-22] MEDS: ATORVASTATIN 80 MG TAB PO SCH (20:56)
--- NOTE | 2020-06-22 22:08 | PN ---
PROGRESS NOTE DATE OF SERVICE: 06/22/2020 REASON FOR FOLLOWUP: Left diabetic foot infection. INTERVAL HISTORY: The patient is currently afebrile. The patient is breathing comfortably. The patient denies having any chest pain or shortness of breath or cough. No abdominal pain or diarrhea. PHYSICAL EXAMINATION: Blood pressure is 104/69 with a pulse of 71, temperature 97.9. He is 97% on room air. General description is an elderly male lying in bed in no distress. RESPIRATORY SYSTEM: Unlabored breathing with decreased breath sounds at the base. No wheeze. HEART: S1, S2. Regular rate and rhythm. ABDOMEN: Soft. No tenderness. LABS: Hemoglobin is 7, white count 10.6, BUN of 29, creatinine 1.90. DIAGNOSTIC IMPRESSION AND PLAN: Patient with left diabetic foot infection with wet gangrene, status post disarticulation, status post cardiac intervention, waiting for the left lower extremity vascular evaluation tomorrow. The patient is currently covered with Zosyn and daptomycin; to continue. Monitor his clinical course closely. MMODL / IJN: [id number] /
[2020-06-23] MEDS: HYDROmorphone 1 MG/ML 1 ML SYRINGE IVP PRN (03:45)
[2020-06-23 04:02] LABS: Glucose,Whole Blood 84 mg/dL (75-99)
[2020-06-23 04:23] LABS: Anisocytosis Slight; Basophils % (A) 0 %; Eosinophils # (A) 0.3 k/uL (0-0.7); Eosinophils % (A) 3 %; HCT 24.7 % (39.0-53.0); Hypochromasia Marked; Lymphocytes # (A) 0.9 k/uL (1.0-4.8); Lymphocytes % (A) 10 %; MCH 27.7 pg (25.0-35.0); MCHC 32.3 g/dL (31.0-37.0); MCV 85.6 fL (80.0-100.0); Mean Platelet Volume 7.2; Monocytes # (A) 0.6 k/uL (0-1.0); Monocytes % (A) 6 %; Neutrophils # (A) 7.3 k/uL (1.3-7.7); Neutrophils % (A) 79 %; Platelet Count 276 k/uL (150-450); Poikilocytosis Moderate; RBC 2.88 m/uL (4.30-5.90); RDW 17.8 % (11.5-15.5); WBC 9.2 k/uL (3.8-10.6)
[2020-06-23 04:42] LABS: Albumin 2.2 g/dL (3.5-5.0); Calcium 8.1 mg/dL (8.4-10.2); Potassium 4.6 mmol/L (3.5-5.1); Total Bilirubin 0.6 mg/dL (0.2-1.3); Total Protein 5.8 g/dL (6.3-8.2)
[2020-06-23] MEDS: INSULIN ASPART (NovoLOG) 100 UNIT/ML VIAL SQ SCH ×6 (05:20→23:28)
[2020-06-23] MEDS: INSULIN DETEMIR (LEVEMIR) 100 UNIT/ML SYR SQ SCH (05:20)
[2020-06-23] MEDS: HYDROcodone/APAP 10-325MG 1 EACH TAB PO PRN ×2 (05:23→11:07)
[2020-06-23 07:02] LABS: Glucose,Whole Blood 96 mg/dL (75-99)
[2020-06-23] MEDS: carvediloL 12.5 MG TAB PO SCH ×2 (07:14→23:06)
[2020-06-23] MEDS: PANTOPRAZOLE 40 MG TABLET PO SCH (07:14)
[2020-06-23] MEDS: FERROUS SULFATE 325 MG TAB PO SCH ×2 (07:14→23:05)
--- NOTE | 2020-06-23 08:27 | PN ---
PROGRESS NOTE Mr. Phan is in atrial fib, chronic, rate controlled. He had stenting of LAD performed on Monday. He is going for a left lower extremity revascularization procedure by Dr. Fox and Dr. Tucker. His procedure is scheduled for this afternoon. Prognosis remains guarded. The patient is resting comfortably. No chest pain. Hemodynamically stable. Vitals are stable. S1, S2 heard normally, short systolic murmur noted. Lungs reveal improved air entry. Right groin has a hematoma which appears to be quite stable and improving. Left lower extremity has a lot of ischemic issues and patient is going for surgery in this regard. Prognosis remains guarded. He remains a moderate to high risk and the patient is aware of that. MMODL / IJN: [id number] /
[2020-06-23 08:37] LABS: Glucose,Whole Blood 93 mg/dL (75-99)
[2020-06-23] MEDS: PIPERACILLIN-TAZOBACTAM 3.375 GM in SODIUM CHLORIDE 0.9% 100 ML IVPB SCH ×3 (08:51→23:27)
[2020-06-23] MEDS: ASPIRIN 81 MG PO SCH (09:08)
[2020-06-23] MEDS: CLOPIDOGREL 75 MG TAB PO SCH (09:10)
[2020-06-23] MEDS: SODIUM FERRIC GLUCONAT-SUCROSE 125 MG in SODIUM CHLORIDE 0.9% 100 ML IVPB SCH (11:08)
[2020-06-23 11:17] LABS: Glucose,Whole Blood 93 mg/dL (75-99)
--- NOTE | 2020-06-23 13:11 | P.PN ---
Subjective 65 years old male with past medical history of diabetes mellitus, hyperlipidemia, hypertension, atrial fibrillation on Coumadin. He is a patient of Dr. Lambert and was sent by his surgeon Dr. Fox to the hospital for gangrenous left foot, patient could not service 54 hole long is suffering from this problem except for a long time it was slowly progressive. Currently his left foot looks like as well as the distal part of the leg with area of fluctuation and discoloration. Patient has been sent to the hospital by his vascular surgeon Dr. Fox recommended also vascular intervention by senior service aide Dr. Gaston for internal and external iliac artery disease Vitals looks stable. Labs showed leukocytosis with 16.0 K, hemoglobin 11.4, platelet 5.5. INR is 2.7. Potassium 5.6, creatinine 2.19, unknown baseline EKG showing atrial fibrillation at a rate of 88 with QTC of 510, left foot x-ray showing osteomyelitis with possible gas-forming organisms within the soft tissue, correlate for cellulitis, possible myositis an abscess Lactic acid is 2.3. Liver enzymes not elevated On admission patient was started on Unasyn and IV vancomycin Consult was placed for Dr. Gaston, infectious disease team and Dr. Omer on admission patient 06/14/2020 Patient admitted with left foot gangrene, no marked change in his clinical picture, Vitas looks stable and patient is afebrile. Leukocytosis improved to 14 K. Sugar is controlled and lactic acid is back to normal. BMP is pending because his and send out test Vascular Surgery and infectious disease on the case. Fire Tower Keeper consult is pending 06/15/2020 Patient with left foot and possible distal leg gangrene, stable with no proximal progression compared to the last couple days, dressing is in place. Patient looks comfortable, not in distress, fully awake and oriented, he denies chest pain or dyspnea. Or any other complaints. He is hemodynamically stable. WBC trending down to 13.8 K, INR is trended down to 2.4, while his Coumadin is held since admission. Creatinine is stable at 2.0 since admission. He is on broad-spectrum antibiotics DAPTOMYCIN and Zosyn as per ID team. Vas cular surgery team are planning for debridement and amputation of the dictation cardiology input is appreciated, they recommended cardiac cath prior to lower extremity renovascular patient surgery, however high INR is not recommended, so vitamin K is a provided and patient may be bridged with heparin infusion length subtherapeutic INR. 06/16/2020 Patient was admitted with left foot wet gangrene and he underwent foot disarticulation yesterday , today she feels better as and no pain in the left l eg area. 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 Wound cultures are pending. Hemodynamically stable. Leukocytosis trending down to 12.1 K. Creatinine is down to 1.8 Nephrology input is appreciated, they recommended adjusting the dose of Lovenox per renal function while holding his Coumadin for his history of atrial fibrillation Also urine analysis and renal ultrasound is ordered, most likely he has chronic kidney disease stage III further than acute kidney injury on the presentation. 06/17/2020 Patient awake, he underwent amputation of his left foot 2 days ago, he had pain at his left foot stump overnight but now is better controlled. He is hemodynamically stable CBC is unremarkable, INR is 1.2, creatinine went up a little bit to 2.3 and nephrology on the case. Wound culture is growing gram-negative bacilli Fire Tower Keeper recommended to restart his Coumadin last night Consultants on the case including infectious disease, senior service aide and cardiothoracic surgeon as well as communications programmer. He remains on Zosyn, daptomycin, normal saline were stopped and continue with small dose of Lasix. 06/18/2020 Patient lying in bed comfortable, back to his baseline. No specific complaint. Pain is controlled and his left lower extremity status post amputation. Dressing is in place. Patient is monitored closely by several consultants including cardiology, vascular surgery, infectious disease and nephrology. Vitals and labs are stable including creatinine of 2 at baseline CTD stage III. Glucose controlled. WBC is normal at 9.5k Patient remains on Zosyn and daptomycin. Also on aspirin and warfarin was restarted with INR is 1.4, we will give 7 mg of Coumadin tonight. Plavix is still on hold and we will discuss with surgery was started.I discussed the case with senior service aide Today about anticoagulation and they recommended to continue with Coumadin only for now, no need for bridging with Lovenox we will check INR tomorrow We will discuss with the other consultants including senior service aide and vascular surgery about further plans 06/19/2020 I discussed the case with cardiology team today, possible patient would be going for cardiac catheterization and Dr. Gaston, and evaluated the patient. Hemodynamically he is stable. INR today is 2.0. Creatinine is stable at 1.9. Also I discussed the case with nephrology team and at bedside have a lot of questions and all their questions were answered to their satisfaction at my best. Patient currently remains on Zosyn and daptomycin as per ID team. IV fluids are on hold. Patient continue on aspirin. Plavix is a still on hold. 06/20/20 Patient yesterday underwent coronary artery revascularization procedure with Dr. Craft Using the left ventricle impella, patient underwent atherectomy of the left anterior descending artery with successful stenting of the mid left anterior descending artery. Postprocedure Plavix has been added, patient to continue with aspirin Recommended by communications programmer normal saline at 75 mL is provided before and after the procedure. Patient currently is off IV fluids. Warfarin also resumed patient currently lying in bed comfortably he had pain at surgical left leg earlier but now is controlled with pain medication and Dilaudid. Sugar is running on the low side, patient is on Levemir 13 units daily[address] We will place patient on D5 half-normal saline at 50 mL per hour. Sodium is 137 Postprocedure his hemoglobin dropped to 7.1. We will monitor the patient's hem oglobin closely. Coumadin is resumed and INR is 1.8. Creatinine is stable and actually is slightly down to 1.8. 06/22/2020 Patient will undergo renal aspiration procedure for the left leg. Patient has probable tension and MRSA in the left leg wounds. Patient is presently on daptomycin and Zosyn for these. 06/23/2020 Patient will undergo re-vascular lesion procedure for his legs today. Constitutional: Denied any fatigue denied any fever. Cardio vascular: denied any chest pain, palpitations Gastrointestinal denied any nausea vomiting Pulmonary: Denied any shortness of breath cough Neurologic denied any new focal deficits All inpatient medications were reviewed and appropriate changes in these medications as dictated in the interval history and assessment and plan. Objective - Vital Signs Vital signs: Vital Signs Temp 97.8 F 06/23/20 08:00 Pulse 76 06/23/20 12:00 Resp 15 06/23/20 12:00 BP 122/79 06/23/20 12:00 Pulse Ox 95 06/23/20 12:00 Intake & Output 06/22/20 06/23/20 06/23/20 18:59 06:59 18:59 Intake Total 1635 840 500 Output Total 620 750 435 Balance 1015 90 65 Weight 96.162 kg Intake: IV 800 600 500 Piperacillin-Tazobactam 3 200 100 .375 gm In Sodium Chloride 0.9% 100 ml @ 25 mls/hr IVPB Q8HR [facility] Rx# :[id number] Sodium Chloride 0.9% 1, 600 600 300 000 ml @ 50 mls/hr IV . Q20H [facility] Rx#:[id number] Sodium Ferric Gluconat- 100 Sucrose 125 mg In Sodium Chloride 0.9% 100 ml @ 100 mls/hr IVPB DAILY NEHA Rx#:[id number] Intake, IV Titration 150 Amount DAPTOmycin 500 mg In 50 Sodium Chloride 0.9% 50 ml @ 100 mls/hr IVPB Q24H [facility]HA Rx#:[id number] Sodium Ferric Gluconat- 100 Sucrose 125 mg In Sodium Chloride 0.9% 100 ml @ 100 mls/hr IVPB DAILY NEHA Rx#:[id number] Oral 360 240 Blood Product 325 Rc Pheresis As3 Unit 0 [id number] Output: Urine 620 750 435 Other: Voiding Method Indwelling Catheter Indwelling Catheter Indwelling Catheter - Exam GENERAL: The patient is alert and oriented x3, not in any acute distress. Well developed, well nourished. HEENT: Pupils are round and equally reacting to light. EOMI. No scleral icterus. No conjunctival pallor. Normocephalic, atraumatic. No pharyngeal erythema. No thyromegaly. CARDIOVASCULAR: S1 and S2 present. No murmurs, rubs, or gallops. PULMONARY: Chest is clear to auscultation, no wheezing or crackles. ABDOMEN: Soft, nontender, nondistended, normoactive bowel sounds. No palpable organomegaly. MUSCULOSKELETAL: No joint swelling or deformity. -EXTREMITIES: No cyanosis, clubbing, or pedal edema. Left leg is status post amputation of the left foot, dressing is in place NEUROLOGICAL: Gross neurological examination did not reveal any focal deficits. SKIN: No rashes. No petechiae - Labs CBC & Chem 7: 06/23/20 03:49 06/23/20 03:49 Labs: Abnormal Lab Results - Last 24 Hours (Table) 06/19/20 06/21/20 06/22/20 Range/Units 05:46 06:34 16:50 RBC (4.30-5.90) m/uL Hgb (13.0-17.5) gm/dL Hct (39.0-53.0) % RDW (11.5-15.5) % Lymphocytes # (1.0-4.8) k/uL Chloride (98-107) mmol/L BUN (9-20) mg/dL Creatinine (0.66-1.25) mg/dL Glucose (74-99) mg/dL POC Glucose (mg/dL) 106 H (75-99) mg/dL Calcium (8.4-10.2) mg/dL Iron 25 L (65-175) ug/dL % Saturation 10.46 L (15.00-50.00) Total Protein (6.3-8.2) g/dL Albumin (3.5-5.0) g/dL Crossmatch See Detail 06/22/20 06/23/20 06/23/20 Range/Units 20:50 03:49 03:49 RBC 2.88 L (4.30-5.90) m/uL Hgb 8.0 L (13.0-17.5) gm/dL Hct 24.7 L (39.0-53.0) % RDW 17.8 H (11.5-15.5) % Lymphocytes # 0.9 L (1.0-4.8) k/uL Chloride 110 H (98-107) mmol/L BUN 26 H (9-20) mg/dL Creatinine 1.83 H (0.66-1.25) mg/dL Glucose 73 L (74-99) mg/dL POC Glucose (mg/dL) 136 H (75-99) mg/dL Calcium 8.1 L (8.4-10.2) mg/dL Iron (65-175) ug/dL % Saturation (15.00-50.00) Total Protein 5.8 L (6.3-8.2) g/dL Albumin 2.2 L (3.5-5.0) g/dL Crossmatch Assessment and Plan Plan: Gangrene of the left foot, x-rays suspicious for cellulitis, myositis or an abscess with possible osteomyelitis and gas-forming organisms in the soft tissue. S/P articulation of the left foot coronary artery disease, triple coronary artery disease status post cardiac cath and stent placement in the LAD Peripheral vascular disease, need a vascular surgery after cardiac cath. Including left external iliac artery chronic kidney disease stage III Diabetes mellitus Elevated lactic acid Hyperlipidemia Hypertension Chronic atrial fibrillation on Coumadin Plan: This is a pleasant 65 years old male who presents with gangrenous left foot. Continue with Lasix, continue with anticoagulation with Coumadin , Continue with antibiotics and follow-up recommendation of infectious disease team. Patient will undergo revascularization procedure for left leg. On D5 half normal saline. Continue with Zosyn and daptomycin Follow-up recommendation by senior service aide. Continue with Lasix. Patient now is pending for left lower extremity revascularization surgery follow-up creatinine. Hold vasotec, follow-up nephrology consult team. Pain management Fire Tower Keeper recommended cardiac cath to be followed by lower extremity vascular surgery, however CTS recommend controlling infection prior to revascularization Labs and medication were reviewed.. DVT prophylaxis: Warfarin GI Prophylaxis: Ppi PT/OT: Pending Prognosis is guarded
--- NOTE | 2020-06-23 15:08 | PN ---
PROGRESS NOTE The patient is seen for followup for acute kidney injury on top of chronic kidney disease. Renal function has been fairly stable. The patient is scheduled for procedure today for lower extremity bypass surgery on the left leg. He is maintained on saline at 50 mL an hour. No significant complaints today. PHYSICAL EXAMINATION: Blood pressure was 135/86, heart rate 64 per minute. He is afebrile. EXAMINATION OF THE HEART: S1, S2. EXAMINATION OF LUNGS: Bilateral breath sounds are heard. Abdomen is soft, nontender. Examination of lower extremities shows bilateral extremities to be wrapped. LABS: Labs show sodium 139, potassium 4.6, chloride 110, BUN 26, creatinine 1.83, hemoglobin 8.0 g/dL. ASSESSMENT: 1. Acute kidney injury, acute tubular necrosis, currently stable. Renal function had worsened secondary to anemia, now stable with good urine output, maintained on saline at 50 mL an hour. 2. Chronic kidney disease stage 3B, secondary to diabetic kidney disease and nephrosclerosis. Baseline creatinine close to 2. Renal function currently at baseline. 3. Acute blood loss anemia. No active bleeding noted at this time, status post packed RBCs transfusion, maintained on Aranesp. The patient was also noted to be iron deficient. He is started on IV iron. 4. Chronic atrial fibrillation, rate is controlled. 5. Peripheral vascular disease with gangrene of the left foot with osteomyelitis, status post disarticulation of the left foot, scheduled for lower extremity bypass surgery today with Dr. Fox. PLAN: Continue the saline at 50 mL an hour. Continue to monitor renal function and electrolytes. MMODL / IJN: [id number] /
[2020-06-23] MEDS: DAPTOmycin 500 MG in SODIUM CHLORIDE 0.9% 50 ML IVPB SCH (16:00)
[2020-06-23] MEDS: SODIUM CHLORIDE 0.9% 1,000 ML IV SCH (16:03)
[2020-06-23 16:06] LABS: Glucose,Whole Blood 100 mg/dL (75-99)
--- NOTE | 2020-06-23 16:16 | PN ---
PROGRESS NOTE DATE OF SERVICE: 06/23/2020 REASON FOR FOLLOWUP: Left diabetic foot infection. INTERVAL HISTORY: The patient is currently afebrile. The patient is breathing comfortably. Denies having any chest pain or shortness of breath or cough. No abdominal pain or pain to the left foot disarticulation site. PHYSICAL EXAMINATION: Blood pressure 122/79 with a pulse of 73, temperature 98. He is 95% on room air. General description is an elderly male lying in bed in no distress. RESPIRATORY SYSTEM: Unlabored breathing. Clear to auscultation anteriorly. HEART: S1, S2. Regular rate and rhythm. ABDOMEN: Soft. No tenderness. LABS: Hemoglobin 8, white count 9.2, BUN 26, creatinine 1.83. DIAGNOSTIC IMPRESSION AND PLAN: Patient with left diabetic foot infection in this patient who did have disarticulation of the left foot, waiting for revascularization of the left leg before attempting a [id number] amputation. The patient is covered with daptomycin and Zosyn; to continue while monitoring clinical course closely. MMODL / IJN: [id number] /
[2020-06-23] MEDS ORDERED: FUROSEMIDE 10 MG/ML 2 ML VIAL ONE (16:27)
[2020-06-23] MEDS ORDERED: PHENYLEPHRINE 10 MG/ML VIAL ONE (16:27)
[2020-06-23] MEDS ORDERED: MIDAZOLAM 2 MG/2 ML VIAL ONE (16:27)
[2020-06-23] MEDS ORDERED: PROPOFOL 10 MG/ML 20 ML VIAL IV ONE (16:27)
[2020-06-23] MEDS ORDERED: ALBUMIN HUMAN 5% (12.5gm) 250 ML BOTTLE IVPB ONE (16:27)
[2020-06-23] MEDS ORDERED: LIDOCAINE 1% INJ 10MG/ML (20 ML MDV) ONE (16:27)
[2020-06-23] MEDS ORDERED: PROTAMINE SULFATE 10 MG/ML 5 ML VIAL IV ONE (16:27)
[2020-06-23] MEDS ORDERED: HEPARIN SODIUM,PORCINE 10,000 UNIT/ML 1 ML VIAL ONE (16:27)
[2020-06-23] MEDS ORDERED: fentaNYL (PF) 50 MCG/ML 2 ML AMP ONE (16:27)
[2020-06-23] MEDS ORDERED: NEOSTIGMINE 1 MG/ML 10 ML VIAL ONE (16:27)
[2020-06-23] MEDS ORDERED: GLYCOPYRROLATE 0.2 MG/ML 2 ML VIAL ONE (16:27)
[2020-06-23] MEDS ORDERED: SUCCINYLCHOLINE CHLORIDE 100 MG/5 ML SYR IV ONE (16:27)
[2020-06-23] MEDS ORDERED: ROCURONIUM 10 MG/ML (10 ML VIAL) IV ONE (16:27)
[2020-06-23] MEDS ORDERED: IV FLUID CONTINUATION 1,000 ML IV ONE (16:32)
[2020-06-23] MEDS ORDERED: ceFAZolin 4,000 MG in SODIUM CHLORIDE 0.9% 1,000 ML IRRIGATION ONE (17:12)
[2020-06-23] MEDS ORDERED: HEPARIN SODIUM,PORCINE 10,000 UNIT in SODIUM CHLORIDE 0.9% 1,000 ML IRRIGATION ONE (17:13)
[2020-06-23] MEDS ORDERED: LACTATED RINGERS 1,000 ML IV ONE (17:30)
[2020-06-23] MEDS ORDERED: IOPAMIDOL-370 50ML BTL MISCELLANE ONE (18:53)
[2020-06-23] MEDS ORDERED: SODIUM CHLORIDE 0.9% 1,000 ML IV ONE (19:45)
[2020-06-23] MEDS ORDERED: IOPAMIDOL-250 50ML BTL IV ONE ×2 (19:57)
[2020-06-23] MEDS ORDERED: THROMBIN (BOVINE) 5,000 UNIT VIAL TOPICAL ONE (20:50)
[2020-06-23] MEDS ORDERED: GELATIN SPONGE,ABSORB (LARGE) 1 EACH SPONGE TOPICAL ONE (20:50)
--- NOTE | 2020-06-23 21:24 | P.ANPRN ---
Procedure Note - Anesthesia - Invasive Line Left Arterial Line Time Out Performed: Yes Date of Procedure: 06/23/20 Location of Patient: OR Preparation: Sterile Prep, Sterile Dressing Arterial Line Location: Radial Ultrasound Used: No Purpose - Visualization and Identification of Vasculature: No Needle Guage: 20 Narrative: Central line placement per sterile protocol utilized.
[2020-06-23] MEDS ORDERED: SODIUM CHLORIDE 0.9% 500 ML 500 ML IV ONE (21:30)
[2020-06-23 21:46] LABS: Calcium 7.7 mg/dL (8.4-10.2); Potassium 4.9 mmol/L (3.5-5.1)
[2020-06-23 21:52] LABS: Anisocytosis Slight; Basophils % (A) 0 %; Eosinophils # (A) 0.2 k/uL (0-0.7); Eosinophils % (A) 2 %; HCT 28.7 % (39.0-53.0); HGB 9.2 gm/dL (13.0-17.5); Hypochromasia Moderate; Lymphocytes # (A) 0.8 k/uL (1.0-4.8); Lymphocytes % (A) 9 %; MCH 27.9 pg (25.0-35.0); MCHC 31.9 g/dL (31.0-37.0); MCV 87.4 fL (80.0-100.0); Mean Platelet Volume 7.3; Monocytes # (A) 0.4 k/uL (0-1.0); Monocytes % (A) 4 %; Neutrophils # (A) 7.4 k/uL (1.3-7.7); Neutrophils % (A) 83 %; Platelet Count 283 k/uL (150-450); Poikilocytosis Moderate; RBC 3.28 m/uL (4.30-5.90); RDW 16.9 % (11.5-15.5)
--- NOTE | 2020-06-23 22:23 | P.OP ---
Date of Procedure: 06/23/20 Preoperative Diagnosis: left iliofemoral occlusion with left lower extremity critical limb ischemia Postoperative Diagnosis: same Procedure(s) Performed: 1. Left femoral, external iliac, profunda endarterectomy with patch angioplasty 2. Left External iliac artery balloon angioplasty 3. Left External iliac artery covered stent placement 4. Aortagram with selective left iliofemoral angiogram 5. Ultrasound guided right femoral artery access Implants: Viabahn [id number] stent Anesthesia: LOULOU Surgeon: Davis Tucker Vice President Biostatistics #1: Rico Fox Estimated Blood Loss (ml): 500 Pathology: other (femoral plaque) Condition: stable Disposition: PACU Indications for Procedure: 65 year old male with history of left lower extremity gangrene and critical limb ischemia with previous angiogram demonstrating left iliofemoral occlusion involving the profundus femoris artery. He underwent amputation and is in need of BKA vs. AKA and needed revascularization prior and presents today for revascularization procedure. Operative Findings: Occluded left common femoral, deep femoral and external iliac artery Description of Procedure: After written and informed consent was obtained from the patient and all risks, benefits, and complications were discussed the patient was brought to the operative suite and laid in a supine position. The area of the abdomen, groins were prepped and draped in the usual fashion. Timeout was performed in usual fashion. Antibiotics were administered prior to incision. A vertical incision was created at the left groin overlying the femoral artery with a 10 blade scalpel and dissection was carried down with electrocautery to the common femoral artery. The common femoral, superficial femoral and profundus were dissected free in a circumferential manner and controlled with vessel loops. Proximal dissection was carried up to the external iliac and the circumflex artery was controlled with a vessel loop. Patient was given 5000 units of hep zi prior to clamping. Vessel clamps were then placed for proximal and distal control and arteriotomy was created with an 11 blade scalpel. The arteriotomy site was extended with Pott Machuca scissors. Endarterectomy was then performed with a [place] and dense calcified plaque was removed from the common femoral, profundus femoris and extending to the external iliac artery. Inflow was assessed and was poor. Further endarterectomy was perfored to the pelvic brim. Blood flow was established. The area was irrigated and all free debris was removed. Backbleeding was asses from the profunda and superficial femoral artery which were Appropriate. Patch angioplasty was performed with a 9 x 2 cm patch and 6-0 Prolene in a running fashion. Prior to last sutures being placed inflow was assessed once demonstrating some flow but not pulsatile. Backbleeding was brisk. Final sutures were secured. A multipurpose needle was then utilized and a retrograde access was obtained an angiogram was performed. The external iliac artery was occluded and therefore a 6 Panamanian sheath was placed and multiple attempts to cross the lesion failed. Utilizing ultrasound the right common femoral artery was accessed with a multipurpose needle and utilizing Seldinger technique a 6 Panamanian sheath was placed. An 035 Glidewire Was placed into the aorta and rim catheter was guided into the distal aorta. A ortogram was obtained followed by access to the common Iliac artery on the left and selective iliofemoral angiogram was obtained. There was significant stenosis noted and an 035 Glidewire followed by a quick cross catheter was utilized and the lesion was cross. The wire was then removed from the patch Utilizing a body floss technique. Quick cross catheter was removed and then placed up the left femoral sheath across the lesion. Angiogram was obtained demonstrating intraluminal access. Glidewire was placed and catheter was removed. Balloon angioplasty with a 7 x 80mm balloon Was performed with good improvement of the lesion. There was significant calcification and therefore decision was made to place a covered stent. The sheath was removed and replaced with a 7 F sheath. An 8 x 100 mm ViaBahn Stent was placed and extended into the proximal anastomosis. Post-stent balloon angioplasty was performed with a 7 x 80 balloon. Final angiogram was obtained demonstrating brisk flow through the external iliac artery with resolution of the blockage. All guidewires, catheters and sheath were removed and passed was closed with 6-0 Prolene suture. Good hemostasis was noted and insured with Gelfoam and thrombin. The area was irrigated copiously. Good multiphasic signal was noted distal at the profundus and superficial femoral artery with bounding pulse noted in the patch. The i ncision was then closed in a multilayer fashion and Prevena incisional VAC was placed. The right femoral sheath was removed and pressure was held for hemostasis. Patient tolerated the procedure well and was sent to the PACU for recovery.
[2020-06-23 22:57] LABS: Glucose,Whole Blood 102 mg/dL (75-99)
[2020-06-23] MEDS: LACTATED RINGERS 1,000 ML IV SCH ×2 (23:06→23:28)
[2020-06-23] MEDS: ATORVASTATIN 80 MG TAB PO SCH (23:27)
[2020-06-24] MEDS: INSULIN ASPART (NovoLOG) 100 UNIT/ML VIAL SQ SCH ×5 (04:34→20:34)
[2020-06-24 04:39] LABS: Glucose,Whole Blood 104 mg/dL (75-99)
[2020-06-24 04:46] LABS: Anisocytosis Slight; Basophils % (A) 0 %; Eosinophils # (A) 0.1 k/uL (0-0.7); Eosinophils % (A) 1 %; HGB 8.7 gm/dL (13.0-17.5); Hypochromasia Moderate; Lymphocytes # (A) 0.8 k/uL (1.0-4.8); Lymphocytes % (A) 7 %; MCH 28.1 pg (25.0-35.0); MCHC 32.3 g/dL (31.0-37.0); MCV 87.1 fL (80.0-100.0); Mean Platelet Volume 7.4; Monocytes # (A) 0.5 k/uL (0-1.0); Monocytes % (A) 5 %; Neutrophils # (A) 9.8 k/uL (1.3-7.7); Neutrophils % (A) 86 %; Platelet Count 270 k/uL (150-450); Poikilocytosis Moderate; RDW 17.1 % (11.5-15.5); WBC 11.4 k/uL (3.8-10.6)
[2020-06-24 04:57] LABS: Calcium 7.9 mg/dL (8.4-10.2); Potassium 4.7 mmol/L (3.5-5.1)
[2020-06-24] MEDS ORDERED: ONDANSETRON 4 MG/2 ML VIAL IVP PRN (07:00)
[2020-06-24] MEDS ORDERED: HYDROmorphone 0.5 MG/0.5 ML SYRINGE IVP PRN (07:00)
[2020-06-24] MEDS: carvediloL 12.5 MG TAB PO SCH ×2 (07:14→18:47)
[2020-06-24] MEDS: PANTOPRAZOLE 40 MG TABLET PO SCH (07:14)
[2020-06-24] MEDS: FERROUS SULFATE 325 MG TAB PO SCH ×2 (07:14→18:47)
[2020-06-24 07:46] LABS: Glucose,Whole Blood 96 mg/dL (75-99)
--- NOTE | 2020-06-24 07:53 | FL ---
Fluoroscopy INDICATION: Pain FINDINGS: Fluoroscopy time: 21 minutes 51 seconds. Images obtained: 15 cine runs. IMPRESSIONS: 1. Documentation of fluoroscopy.
--- NOTE | 2020-06-24 08:33 | PN ---
PROGRESS NOTE Mr. Phan is doing well today. He underwent surgery yesterday performed by Dr. Tucker assisted by Dr. Fox. The patient is in atrial fib controlled rate, doing well. Does not have any pain in the lower extremity. I am recommending that we discontinue his aspirin and switch him to a combination of Plavix and Eliquis 2.5 mg b.i.d. if okay with Dr. Tucker. Vitals are stable. Heart rate is in the 70s, irregular. Blood pressure is good. S1, S2 heard normally, short systolic murmur noted. Lungs reveal improved air entry. Abdomen is soft. Lower extremity exam deferred. The patient can be moved to telemetry. MMODL / IJN: [id number] /
[2020-06-24] MEDS: SODIUM FERRIC GLUCONAT-SUCROSE 125 MG in SODIUM CHLORIDE 0.9% 100 ML IVPB SCH (08:34)
[2020-06-24] MEDS: PIPERACILLIN-TAZOBACTAM 3.375 GM in SODIUM CHLORIDE 0.9% 100 ML IVPB SCH ×3 (08:35→23:52)
[2020-06-24] MEDS: INSULIN DETEMIR (LEVEMIR) 100 UNIT/ML SYR SQ SCH (08:35)
[2020-06-24] MEDS: CLOPIDOGREL 75 MG TAB PO SCH (08:35)
[2020-06-24] MEDS: ASPIRIN 81 MG PO SCH (08:35)
[2020-06-24 11:27] LABS: Glucose,Whole Blood 95 mg/dL (75-99)
--- NOTE | 2020-06-24 12:12 | P.PN ---
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 He is postop day #1 for left iliofemoral angiogram with left femoral, iliac profunda endarterectomy with patch angioplasty and stent placement. The patient had gangrene of the left foot and went for disarticulation above the ankle joint with Dr. Fox. The patient states he is doing well overall, he denies any shortness of breath, chest pain, or abdominal pain. He is able to move bilateral lower extremities. He does state he has some discomfort in the right groin. Patient had a prior Impella placement in the left ventricle from right groin approach with cardiology on 06/19/2020. The nurse reports he had a hematoma at that site afterward, he was accessed yesterday through the left groin as well. The patient denies any bleeding. Objective - Vital Signs Vital signs: Vital Signs Temp 98.3 F 06/24/20 08:00 Pulse 69 06/24/20 10:00 Resp 27 H 06/24/20 10:00 BP 140/78 06/24/20 10:00 Pulse Ox 95 06/24/20 10:00 Intake & Output 06/23/20 06/24/20 06/24/20 18:59 06:59 18:59 Intake Total 1753 1610 260 Output Total 690 1985 185 Balance 1063 -375 75 Weight 94.8 kg Intake: IV 1703 740 210 Lactated Ringers 1,000 ml 140 60 @ 20 mls/hr IV .Q24H [facility] Rx#:[id number] Piperacillin-Tazobactam 3 100 50 .375 gm In Sodium Chloride 0.9% 100 ml @ 25 mls/hr IVPB Q8HR NEHA Rx# :[id number] Sodium Chloride 0.9% 1, 500 000 ml @ 50 mls/hr IV . Q20H NEHA Rx#:[id number] Sodium Ferric Gluconat- 100 100 Sucrose 125 mg In Sodium Chloride 0.9% 100 ml @ 100 mls/hr IVPB DAILY NEHA Rx#:[id number] Intake, IV Titration 50 Amount DAPTOmycin 500 mg In 50 Sodium Chloride 0.9% 50 ml @ 100 mls/hr IVPB Q24H NEHA Rx#:[id number] Oral 50 Blood Product 870 Rc As-1 Unit 310 [id number] Rc As-1 Unit 310 [id number] Output: Urine 690 1485 185 Estimated Blood Loss 500 Other: Voiding Method Indwelling Catheter Indwelling Catheter ABP, PAP, CO, CI - Last Documented Arterial Blood Pressure 144/141 - Exam General appearance: The patient is alert, oriented, appears in no acute distress. HET: Head is normocephalic and atraumatic. Neck: Supple without lymphadenopathy. Trachea midline. Abdomen: Soft, nontender, nondistended with bowel sounds. No peritoneal signs. No palpable organomegaly or masses. Extremities: Right groin with hematoma and ecchymosis, access site without any bleeding. Left groin with prevena dressing. Palpable right femoral pulse, left deferred due to dressing. Right dorsalis pedis with monophasic Doppler signal, left popliteal with multiphasic Doppler signal. Left lower extremity amputation with dressing that is clean dry and intact. Right foot with dressing clean dry and intact. Neurological: No focal deficits. - Labs CBC & Chem 7: 06/24/20 04:25 06/24/20 04:25 Labs: Abnormal Lab Results - Last 24 Hours (Table) 06/21/20 06/23/20 06/23/20 Range/Units 06:34 16:05 21:07 WBC (3.8-10.6) k/uL RBC 3.28 L (4.30-5.90) m/uL Hgb 9.2 L (13.0-17.5) gm/dL Hct 28.7 L (39.0-53.0) % RDW 16.9 H (11.5-15.5) % Neutrophils # (1.3-7.7) k/uL Lymphocytes # 0.8 L (1.0-4.8) k/uL Chloride (98-107) mmol/L Carbon Dioxide (22-30) mmol/L BUN (9-20) mg/dL Creatinine (0.66-1.25) mg/dL Glucose (74-99) mg/dL POC Glucose (mg/dL) 100 H (75-99) mg/dL Calcium (8.4-10.2) mg/dL Crossmatch See Detail 06/23/20 06/23/20 06/24/20 Range/Units 21:09 22:56 04:25 WBC 11.4 H (3.8-10.6) k/uL RBC 3.10 L (4.30-5.90) m/uL Hgb 8.7 L (13.0-17.5) gm/dL Hct 27.0 L (39.0-53.0) % RDW 17.1 H (11.5-15.5) % Neutrophils # 9.8 H (1.3-7.7) k/uL Lymphocytes # 0.8 L (1.0-4.8) k/uL Chloride 114 H (98-107) mmol/L Carbon Dioxide 20 L (22-30) mmol/L BUN 21 H (9-20) mg/dL Creatinine 1.65 H (0.66-1.25) mg/dL Glucose 104 H (74-99) mg/dL POC Glucose (mg/dL) 102 H (75-99) mg/dL Calcium 7.7 L (8.4-10.2) mg/dL Crossmatch 06/24/20 06/24/20 Range/Units 04:25 04:28 WBC (3.8-10.6) k/uL RBC (4.30-5.90) m/uL Hgb (13.0-17.5) gm/dL Hct (39.0-53.0) % RDW (11.5-15.5) % Neutrophils # (1.3-7.7) k/uL Lymphocytes # (1.0-4.8) k/uL Chloride 113 H (98-107) mmol/L Carbon Dioxide 20 L (22-30) mmol/L BUN 23 H (9-20) mg/dL Creatinine 1.73 H (0.66-1.25) mg/dL Glucose (74-99) mg/dL POC Glucose (mg/dL) 104 H (75-99) mg/dL Calcium 7.9 L (8.4-10.2) mg/dL Crossmatch Assessment and Plan Assessment: 1. Postop day #1 for a left oral, external iliac, profunda endarterectomy with patch angioplasty. Left external iliac artery balloon angioplasty with stent placement. 2. Left iliofemoral occlusion with left lower extremity critical limb ischemia 3. Patient status post left foot amputation Plan: 1. Supportive care 2. Continue medical management 3. Continue with physical therapy 4. May discontinue art line as not working 5. We will continue to follow The impression and plan of care has been dictated as directed. Dr. Gonzalez I performed a history and examination of this patient, discussed the same with the dictator. I agree with the dictator's note ,documented as a scribe. Any additional findings or plans will be noted. Time with Patient: Greater than 30
--- NOTE | 2020-06-24 12:14 | P.PN ---
Subjective 65 years old male with past medical history of diabetes mellitus, hyperlipidemia, hypertension, atrial fibrillation on Coumadin. He is a patient of Dr. Lambert and was sent by his surgeon Dr. Fox to the hospital for gangrenous left foot, patient could not service 54 hole long is suffering from this problem except for a long time it was slowly progressive. Currently his left foot looks like as well as the distal part of the leg with area of fluctuation and discoloration. Patient has been sent to the hospital by his vascular surgeon Dr. Fox recommended also vascular intervention by adult neuropsychologist Dr. Gaston for internal and external iliac artery disease Vitals looks stable. Labs showed leukocytosis with 16.0 K, hemoglobin 11.4, platelet 5.5. INR is 2.7. Potassium 5.6, creatinine 2.19, unknown baseline EKG showing atrial fibrillation at a rate of 88 with QTC of 510, left foot x-ray showing osteomyelitis with possible gas-forming organisms within the soft tissue, correlate for cellulitis, possible myositis an abscess Lactic acid is 2.3. Liver enzymes not elevated On admission patient was started on Unasyn and IV vancomycin Consult was placed for Dr. Gaston, infectious disease team and Dr. Omer on admission patient 06/14/2020 Patient admitted with left foot gangrene, no marked change in his clinical picture, Vitas looks stable and patient is afebrile. Leukocytosis improved to 14 K. Sugar is controlled and lactic acid is back to normal. BMP is pending because his and send out test Vascular Surgery and infectious disease on the case. [employer] Telephone Clerk consult is pending 06/15/2020 Patient with left foot and possible distal leg gangrene, stable with no proximal progression compared to the last couple days, dressing is in place. Patient looks comfortable, not in distress, fully awake and oriented, he denies chest pain or dyspnea. Or any other complaints. He is hemodynamically stable. WBC trending down to 13.8 K, INR is trended down to 2.4, while his Coumadin is held since admission. Creatinine is stable at 2.0 since admission. He is on broad-spectrum antibiotics DAPTOMYCIN and Zosyn as per ID team. Vas cular surgery team are planning for debridement and amputation of the dictation cardiology input is appreciated, they recommended cardiac cath prior to lower extremity renovascular patient surgery, however high INR is not recommended, so vitamin K is a provided and patient may be bridged with heparin infusion length subtherapeutic INR. 06/16/2020 Patient was admitted with left foot wet gangrene and he underwent foot disarticulation yesterday , today she feels better as and no pain in the left l eg area. 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 Wound cultures are pending. Hemodynamically stable. Leukocytosis trending down to 12.1 K. Creatinine is down to 1.8 Nephrology input is appreciated, they recommended adjusting the dose of Lovenox per renal function while holding his Coumadin for his history of atrial fibrillation Also urine analysis and renal ultrasound is ordered, most likely he has chronic kidney disease stage III further than acute kidney injury on the presentation. 06/17/2020 Patient awake, he underwent amputation of his left foot 2 days ago, he had pain at his left foot stump overnight but now is better controlled. He is hemodynamically stable CBC is unremarkable, INR is 1.2, creatinine went up a little bit to 2.3 and nephrology on the case. Wound culture is growing gram-negative bacilli [employer] Telephone Clerk recommended to restart his Coumadin last night Consultants on the case including infectious disease, adult neuropsychologist and cardiothoracic surgeon as well as property maintenance technician. He remains on Zosyn, daptomycin, normal saline were stopped and continue with small dose of Lasix. 06/18/2020 Patient lying in bed comfortable, back to his baseline. No specific complaint. Pain is controlled and his left lower extremity status post amputation. Dressing is in place. Patient is monitored closely by several consultants including cardiology, vascular surgery, infectious disease and nephrology. Vitals and labs are stable including creatinine of 2 at baseline CTD stage III. Glucose controlled. WBC is normal at 9.5k Patient remains on Zosyn and daptomycin. Also on aspirin and warfarin was restarted with INR is 1.4, we will give 7 mg of Coumadin tonight. Plavix is still on hold and we will discuss with surgery was started.I discussed the case with adult neuropsychologist Today about anticoagulation and they recommended to continue with Coumadin only for now, no need for bridging with Lovenox we will check INR tomorrow We will discuss with the other consultants including adult neuropsychologist and vascular surgery about further plans 06/19/2020 I discussed the case with cardiology team today, possible patient would be going for cardiac catheterization and Dr. Gaston, and evaluated the patient. Hemodynamically he is stable. INR today is 2.0. Creatinine is stable at 1.9. Also I discussed the case with nephrology team and at bedside have a lot of questions and all their questions were answered to their satisfaction at my best. Patient currently remains on Zosyn and daptomycin as per ID team. IV fluids are on hold. Patient continue on aspirin. Plavix is a still on hold. 06/20/20 Patient yesterday underwent coronary artery revascularization procedure with Dr. Craft Using the left ventricle impella, patient underwent atherectomy of the left anterior descending artery with successful stenting of the mid left anterior descending artery. Postprocedure Plavix has been added, patient to continue with aspirin Recommended by property maintenance technician normal saline at 75 mL is provided before and after the procedure. Patient currently is off IV fluids. Warfarin also resumed patient currently lying in bed comfortably he had pain at surgical left leg earlier but now is controlled with pain medication and Dilaudid. Sugar is running on the low side, patient is on Levemir 13 units daily[address] We will place patient on D5 half-normal saline at 50 mL per hour. Sodium is 137 Postprocedure his hemoglobin dropped to 7.1. We will monitor the patient's hem oglobin closely. Coumadin is resumed and INR is 1.8. Creatinine is stable and actually is slightly down to 1.8. 06/22/2020 Patient will undergo renal aspiration procedure for the left leg. Patient has probable tension and MRSA in the left leg wounds. Patient is presently on daptomycin and Zosyn for these. 06/23/2020 Patient will undergo re-vascular lesion procedure for his legs today. 06/24/2020 and send patient had a left femoral external iliac endarterectomy with patch angioplasty, external iliac balloon angioplasty and stent placement. Patient will be considered for BKA versus AKA depending on the his response to this revascularization procedure patient remains on broad-spectrum antibiotics Constitutional: Denied any fatigue denied any fever. Cardio vascular: denied any chest pain, palpitations Gastrointestinal denied any nausea vomiting Pulmonary: Denied any shortness of breath cough Neurologic denied any new focal deficits All inpatient medications were reviewed and appropriate changes in these medications as dictated in the interval history and assessment and plan. Objective - Vital Signs Vital signs: Vital Signs Temp 98.3 F 06/24/20 08:00 Pulse 69 06/24/20 10:00 Resp 27 H 06/24/20 10:00 BP 140/78 06/24/20 10:00 Pulse Ox 95 06/24/20 10:00 Intake & Output 06/23/20 06/24/20 06/24/20 18:59 06:59 18:59 Intake Total 1753 1610 260 Output Total 690 1985 185 Balance 1063 -375 75 Weight 94.8 kg Intake: IV 1703 740 210 Lactated Ringers 1,000 ml 140 60 @ 20 mls/hr IV .Q24H [facility] Rx#:[id number] Piperacillin-Tazobactam 3 100 50 .375 gm In Sodium Chloride 0.9% 100 ml @ 25 mls/hr IVPB Q8HR [facility] Rx# :[id number] Sodium Chloride 0.9% 1, 500 000 ml @ 50 mls/hr IV . Q20H NEHA Rx#:[id number] Sodium Ferric Gluconat- 100 100 Sucrose 125 mg In Sodium Chloride 0.9% 100 ml @ 100 mls/hr IVPB DAILY NEHA Rx#:[id number] Intake, IV Titration 50 Amount DAPTOmycin 500 mg In 50 Sodium Chloride 0.9% 50 ml @ 100 mls/hr IVPB Q24H [facility]HA Rx#:[id number] Oral 50 Blood Product 870 Rc As-1 Unit 310 [id number] Rc As-1 Unit 310 [id number] Output: Urine 690 1485 185 Estimated Blood Loss 500 Other: Voiding Method Indwelling Catheter Indwelling Catheter ABP, PAP, CO, CI - Last Documented Arterial Blood Pressure 144/141 - Exam GENERAL: The patient is alert and oriented x3, not in any acute distress. Well developed, well nourished. HEENT: Pupils are round and equally reacting to light. EOMI. No scleral icterus. No conjunctival pallor. Normocephalic, atraumatic. No pharyngeal erythema. No thyromegaly. CARDIOVASCULAR: S1 and S2 present. No murmurs, rubs, or gallops. PULMONARY: Chest is clear to auscultation, no wheezing or crackles. ABDOMEN: Soft, nontender, nondistended, normoactive bowel sounds. No palpable organomegaly. MUSCULOSKELETAL: No joint swelling or deformity. -EXTREMITIES: No cyanosis, clubbing, or pedal edema. Left leg is status post amputation of the left foot, dressing is in place disarticulation procedure on the right NEUROLOGICAL: Gross neurological examination did not reveal any focal deficits. SKIN: No rashes. No petechiae - Labs CBC & Chem 7: 06/24/20 04:25 06/24/20 04:25 Labs: Abnormal Lab Results - Last 24 Hours (Table) 06/21/20 06/23/20 06/23/20 Range/Units 06:34 16:05 21:07 WBC (3.8-10.6) k/uL RBC 3.28 L (4.30-5.90) m/uL Hgb 9.2 L (13.0-17.5) gm/dL Hct 28.7 L (39.0-53.0) % RDW 16.9 H (11.5-15.5) % Neutrophils # (1.3-7.7) k/uL Lymphocytes # 0.8 L (1.0-4.8) k/uL Chloride (98-107) mmol/L Carbon Dioxide (22-30) mmol/L BUN (9-20) mg/dL Creatinine (0.66-1.25) mg/dL Glucose (74-99) mg/dL POC Glucose (mg/dL) 100 H (75-99) mg/dL Calcium (8.4-10.2) mg/dL Crossmatch See Detail 06/23/20 06/23/20 06/24/20 Range/Units 21:09 22:56 04:25 WBC 11.4 H (3.8-10.6) k/uL RBC 3.10 L (4.30-5.90) m/uL Hgb 8.7 L (13.0-17.5) gm/dL Hct 27.0 L (39.0-53.0) % RDW 17.1 H (11.5-15.5) % Neutrophils # 9.8 H (1.3-7.7) k/uL Lymphocytes # 0.8 L (1.0-4.8) k/uL Chloride 114 H (98-107) mmol/L Carbon Dioxide 20 L (22-30) mmol/L BUN 21 H (9-20) mg/dL Creatinine 1.65 H (0.66-1.25) mg/dL Glucose 104 H (74-99) mg/dL POC Glucose (mg/dL) 102 H (75-99) mg/dL Calcium 7.7 L (8.4-10.2) mg/dL Crossmatch 06/24/20 06/24/20 Range/Units 04:25 04:28 WBC (3.8-10.6) k/uL RBC (4.30-5.90) m/uL Hgb (13.0-17.5) gm/dL Hct (39.0-53.0) % RDW (11.5-15.5) % Neutrophils # (1.3-7.7) k/uL Lymphocytes # (1.0-4.8) k/uL Chloride 113 H (98-107) mmol/L Carbon Dioxide 20 L (22-30) mmol/L BUN 23 H (9-20) mg/dL Creatinine 1.73 H (0.66-1.25) mg/dL Glucose (74-99) mg/dL POC Glucose (mg/dL) 104 H (75-99) mg/dL Calcium 7.9 L (8.4-10.2) mg/dL Crossmatch Assessment and Plan Plan: Gangrene of the left foot, x-rays suspicious for cellulitis, myositis or an abscess with possible osteomyelitis and gas-forming organisms in the soft tissue. S/P dysarticulation of the left foot. Patient underwent the prevascular region procedure decision regarding AK versus BKA depending on his response to this procedure coronary artery disease, triple coronary artery disease status post cardiac cath and stent placement in the LAD Peripheral vascular disease, need a vascular surgery after cardiac cath. Including left external iliac artery chronic kidney disease stage III -Acute renal failure secondary to excessivediuretics which are being held and patient is on IV normal saline at this time Diabetes mellitus Elevated lactic acid Hyperlipidemia Hypertension Chronic atrial fibrillation on Coumadin Plan: This is a pleasant 65 years old male who presents with gangrenous left foot. Continue with Lasix, Coumadin was on hold for his vascular procedure , Continue with Zosyn and daptomycin Follow-up recommendation by adult neuropsychologist. Continue with Lasix. Patient now is pending for left lower extremity revascularization surgery DVT prophylaxis: Warfarin GI Prophylaxis: Ppi
--- NOTE | 2020-06-24 13:07 | PN ---
PROGRESS NOTE The patient is seen for followup for acute kidney injury. Renal function is stable. Patient denies any significant complaints. He had vascular surgery yesterday with left femoral endarterectomy and left external iliac artery balloon angioplasty, left external and stent placement. Patient has had good urine output. He is hemodynamically stable. He denies any significant complaints. IV fluids are now discontinued. PHYSICAL EXAMINATION: On examination today, blood pressure was 142/74, heart rate 75 per minute. He is afebrile. EXAMINATION OF THE HEART: S1, S2. EXAMINATION OF THE LUNGS: Bilateral breath sounds are heard. Abdomen is soft, nontender. Examination of the lower extremities shows chronic skin changes. The legs are wrapped. LABS: Labs show hemoglobin 8.7, sodium 137, potassium 4.7, chloride 113, CO2 is 20, BUN 23, creatinine 1.73. ASSESSMENT: 1. Acute kidney injury, acute tubular necrosis, improved. Renal function now staying stable at about 1.6-1.7. Serum creatinine slightly worse today. We will continue to monitor for now. He did have IV contrast for aortogram and iliofemoral angiogram yesterday. Continue to monitor the serum creatinine. 2. Chronic kidney disease, stage 3B, secondary to diabetic kidney disease and nephrosclerosis. Baseline creatinine around 2. Renal function fairly stable at this point. 3. Peripheral vascular disease with gangrene of left foot with osteomyelitis, status post disarticulation, status post iliofemoral angioplasty stent placement. 4. Chronic atrial fibrillation, rate is controlled. PLAN: May continue off of saline. Continue to monitor renal function. Avoid any other nephrotoxic agents. Avoid hypotension. Repeat labs in a.m. MMODL / IJN: [id number] /
--- NOTE | 2020-06-24 14:31 | PN ---
PROGRESS NOTE DATE OF SERVICE: 06/24/2020 REASON FOR FOLLOWUP: Left diabetic foot infection. INTERVAL HISTORY: The patient is currently afebrile. Patient is feeling better. Breathing comfortably. He did mention he is slightly sore from surgery yesterday. No chest pain, shortness of breath or cough. No abdominal pain or diarrhea. PHYSICAL EXAMINATION: Blood pressure 126/76, pulse 85, temperature 98.2. He is 94% on room air. General description is an elderly male lying in bed in no distress. RESPIRATORY SYSTEM: Unlabored breathing, clear to auscultation anteriorly. HEART: S1, S2. Regular rate and rhythm. ABDOMEN: Soft, no tenderness. LABS: Hemoglobin 8.7, white count 11.4, BUN of 23, creatinine 1.73. DIAGNOSTIC IMPRESSION AND PLAN: Patient with left diabetic foot infection, ischemic in this patient who is status post left foot disarticulation. The patient's culture was positive for Providencia and methicillin-resistant Staphylococcus aureus covered with Zosyn and daptomycin to continue perioperatively. Hopefully finish therapy with oral antibiotics. Continue supportive care. MMODL / IJN: [id number] /
[2020-06-24] MEDS: HYDROcodone/APAP 10-325MG 1 EACH TAB PO PRN (16:09)
[2020-06-24] MEDS: SODIUM CHLORIDE 0.9% 1,000 ML IV SCH (16:11)
[2020-06-24] MEDS: DAPTOmycin 500 MG in SODIUM CHLORIDE 0.9% 50 ML IVPB SCH (16:13)
[2020-06-24 16:57] LABS: Glucose,Whole Blood 151 mg/dL (75-99)
[2020-06-24 20:01] LABS: Glucose,Whole Blood 72 mg/dL (75-99)
[2020-06-24 20:16] LABS: Glucose,Whole Blood 75 mg/dL (75-99)
[2020-06-24] MEDS: ATORVASTATIN 80 MG TAB PO SCH (20:33)
[2020-06-24] MEDS: APIXABAN 2.5 MG TABLET PO SCH (20:33)
[2020-06-25] MEDS: INSULIN ASPART (NovoLOG) 100 UNIT/ML VIAL SQ SCH ×3 (05:27→11:54)
[2020-06-25 06:20] LABS: Glucose,Whole Blood 88 mg/dL (75-99)
[2020-06-25 06:27] LABS: Anisocytosis Slight; HCT 27.3 % (39.0-53.0); HGB 8.7 gm/dL (13.0-17.5); Hypochromasia Marked; MCH 27.9 pg (25.0-35.0); MCHC 31.8 g/dL (31.0-37.0); MCV 87.6 fL (80.0-100.0); Mean Platelet Volume 7.3; Platelet Count 277 k/uL (150-450); Poikilocytosis Moderate; RBC 3.11 m/uL (4.30-5.90); RDW 17.5 % (11.5-15.5); WBC 10.8 k/uL (3.8-10.6)
[2020-06-25 06:40] LABS: Calcium 8.4 mg/dL (8.4-10.2)
[2020-06-25] MEDS: carvediloL 12.5 MG TAB PO SCH ×2 (06:53→17:59)
[2020-06-25] MEDS: FERROUS SULFATE 325 MG TAB PO SCH ×2 (06:53→17:59)
[2020-06-25] MEDS: PANTOPRAZOLE 40 MG TABLET PO SCH (06:54)
[2020-06-25 08:17] LABS: Glucose,Whole Blood 126 mg/dL (75-99)
[2020-06-25] MEDS: INSULIN DETEMIR (LEVEMIR) 100 UNIT/ML SYR SQ SCH (08:19)
[2020-06-25] MEDS: PIPERACILLIN-TAZOBACTAM 3.375 GM in SODIUM CHLORIDE 0.9% 100 ML IVPB SCH (08:19)
[2020-06-25] MEDS: SODIUM CHLORIDE 0.9% 1,000 ML IV SCH (08:19)
[2020-06-25] MEDS: APIXABAN 2.5 MG TABLET PO SCH ×2 (08:19→17:59)
[2020-06-25] MEDS: CLOPIDOGREL 75 MG TAB PO SCH (08:19)
[2020-06-25 10:35] VITALS: TEMP 96.1
--- NOTE | 2020-06-25 11:51 | P.DS ---
Providers Date of admission: 06/13/20 09:33 Attending physician: Philip Boyd Consults: 06/13/20 09:33 Consult Physician Urgent Consulting Provider: Erasto Jason Consult Reason/Comments: Gangrene left foot Do you want consulting provider notified?: Yes Consult Physician Urgent Consulting Provider: Kristian Craft Consult Reason/Comments: Cardiac clearance, possible procedure Do you want consulting provider notified?: Yes 06/13/20 09:34 Consult Physician Routine Consulting Provider: Rico Fox Consult Reason/Comments: gangreen left foot Do you want consulting provider notified?: Already Contacted 06/15/20 10:16 Consult Physician Routine Consulting Provider: Neptali Mcgee Consult Reason/Comments: triple vessel ds, needs vascular surgery Do you want consulting provider notified?: Already Contacted 06/15/20 11:21 Consult Physician Urgent Consulting Provider: Cesar Declid Consult Reason/Comments: high creatinine, will need cardiac cath and revascularization of LE Do you want consulting provider notified?: Yes 06/19/20 19:04 Consult Physician Routine Consulting Provider: [facility] Consult Reason/Comments: Post Interventional patient Do you want consulting provider notified?: Already Contacted Primary care physician: [facility]: 65 years old male with past medical history of diabetes mellitus, hyperlipidemia, hypertension, atrial fibrillation on Coumadin. He is a patient of Dr. Lambert and was sent by his surgeon Dr. Fox to the hospital for gangrenous left foot, patient could not service 54 hole long is suffering from this problem except for a long time it was slowly progressive. Currently his left foot looks like as well as the distal part of the leg with area of fluctuation and discoloration. Patient has been sent to the hospital by his vascular surgeon Dr. Fox recommended also vascular intervention by surveillance manager Dr. Gaston for internal and external iliac artery disease Vitals looks stable. Labs showed leukocytosis with 16.0 K, hemoglobin 11.4, platelet 5.5. INR is 2.7. Potassium 5.6, creatinine 2.19, unknown baseline EKG showing atrial fibrillation at a rate of 88 with QTC of 510, left foot x-ray showing osteomyelitis with possible gas-forming organisms within the soft tissue, correlate for cellulitis, possible myositis an abscess Lactic acid is 2.3. Liver enzymes not elevated On admission patient was started on Unasyn and IV vancomycin Consult was placed for Dr. Gaston, infectious disease team and Dr. Omer on admission patient 06/14/2020 Patient admitted with left foot gangrene, no marked change in his clinical picture, Vitas looks stable and patient is afebrile. Leukocytosis improved to 14 K. Sugar is controlled and lactic acid is back to normal. BMP is pending because his and send out test Vascular Surgery and infectious disease on the case. Sound Engineering Technician consult is pending 06/15/2020 Patient with left foot and possible distal leg gangrene, stable with no proximal progression compared to the last couple days, dressing is in place. Patient looks comfortable, not in distress, fully awake and oriented, he denies chest pain or dyspnea. Or any other complaints. He is hemodynamically stable. WBC trending down to 13.8 K, INR is trended down to 2.4, while his Coumadin is held since admission. Creatinine is stable at 2.0 since admission. He is on broad-spectrum antibiotics DAPTOMYCIN and Zosyn as per ID team. Vascular surgery team are planning for debridement and amputation of the dictation cardiology input is appreciated, they recommended cardiac cath prior to lower extremity renovascular patient surgery, however high INR is not recommended, so vitamin K is a provided and patient may be bridged with heparin infusion length subtherapeutic INR. 06/16/2020 Patient was admitted with left foot wet gangrene and he underwent foot disarticulation yesterday , today she feels better as and no pain in the left leg area. 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 Wound cultures are pending. Hemodynamically stable. Leukocytosis trending down to 12.1 K. Creatinine is down to 1.8 Nephrology input is appreciated, they recommended adjusting the dose of Lovenox per renal function while holding his Coumadin for his history of atrial fibrillation Also urine analysis and renal ultrasound is ordered, most likely he has chronic kidney disease stage III further than acute kidney injury on the presentation. 06/17/2020 Patient awake, he underwent amputation of his left foot 2 days ago, he had pain at his left foot stump overnight but now is better controlled. He is hemodynamically stable CBC is unremarkable, INR is 1.2, creatinine went up a little bit to 2.3 and nephrology on the case. Wound culture is growing gram-negative bacilli Sound Engineering Technician recommended to restart his Coumadin last night Consultants on the case including infectious disease, surveillance manager and cardiothoracic surgeon as well as drapery inspector. He remains on Zosyn, daptomycin, normal saline were stopped and continue with small dose of Lasix. 06/18/2020 Patient lying in bed comfortable, back to his baseline. No specific complaint. Pain is controlled and his left lower extremity status post amputation. Dressing is in place. Patient is monitored closely by several consultants including cardiology, vascular surgery, infectious disease and nephrology. Vitals and labs are stable including creatinine of 2 at baseline CTD stage III. Glucose controlled. WBC is normal at 9.5k Patient remains on Zosyn and daptomycin. Also on aspirin and warfarin was restarted with INR is 1.4, we will give 7 mg of Coumadin tonight. Plavix is st ill on hold and we will discuss with surgery was started.I discussed the case with surveillance manager Today about anticoagulation and they recommended to continue with Coumadin only for now, no need for bridging with Lovenox we will check INR tomorrow We will discuss with the other consultants including surveillance manager and vascular surgery about further plans 06/19/2020 I discussed the case with cardiology team today, possible patient would be going for cardiac catheterization and Dr. Gaston, and evaluated the patient. Hemodynamically he is stable. INR today is 2.0. Creatinine is stable at 1.9. Also I discussed the case with nephrology team and at bedside have a lot of questions and all their questions were answered to their satisfaction at my best. Patient currently remains on Zosyn and daptomycin as per ID team. IV fluids are on hold. Patient continue on aspirin. Plavix is a still on hold. 06/20/20 Patient yesterday underwent coronary artery revascularization procedure with Dr. Craft Using the left ventricle impella, patient underwent atherectomy of the left anterior descending artery with successful stenting of the mid left anterior descending artery. Postprocedure Plavix has been added, patient to continue with aspirin Recommended by drapery inspector normal saline at 75 mL is provided before and after the procedure. Patient currently is off IV fluids. Warfarin also resumed patient currently lying in bed comfortably he had pain at surgical left leg earlier but now is controlled with pain medication and Dilaudid. Sugar is running on the low side, patient is on Levemir 13 units daily[address] We will place patient on D5 half-normal saline at 50 mL per hour. Sodium is 137 Postprocedure his hemoglobin dropped to 7.1. We will monitor the patient's hemoglobin closely. Coumadin is resumed and INR is 1.8. Creatinine is stable and actually is slightly down to 1.8. 06/22/2020 Patient will undergo renal aspiration procedure for the left leg. Patient has probable tension and MRSA in the left leg wounds. Patient is presently on daptomycin and Zosyn for these. 06/23/2020 Patient will undergo re-vascular lesion procedure for his legs today. 06/24/2020 and send patient had a left femoral external iliac endarterectomy with patch angioplasty, external iliac balloon angioplasty and stent placement. Patient will be considered for BKA versus AKA depending on the his response to this revascularization procedure patient remains on broad-spectrum antibiotics 06/25/2020 Patient will be switched to oral antibiotics and will be discharged today patient will undergo either BKA or above knee amputation in about 2 weeks. - Exam GENERAL: The patient is alert and oriented x3, not in any acute distress. Well developed, well nourished. HEENT: Pupils are round and equally reacting to light. EOMI. No scleral icterus. No conjunctival pallor. Normocephalic, atraumatic. No pharyngeal erythema. No thyromegaly. CARDIOVASCULAR: S1 and S2 present. No murmurs, rubs, or gallops. PULMONARY: Chest is clear to auscultation, no wheezing or crackles. ABDOMEN: Soft, nontender, nondistended, normoactive bowel sounds. No palpable organomegaly. MUSCULOSKELETAL: No joint swelling or deformity. -EXTREMITIES: No cyanosis, clubbing, or pedal edema. Left leg is status post amputation of the left foot, disarticulation procedure on the right brito has significant swelling and redness in both legs NEUROLOGICAL: Gross neurological examination did not reveal any focal deficits. SKIN: No rashes. No petechiae Assessment and Plan Plan: Gangrene and infected wounds of the left foot, S/P dysarticulation of the left foot. Patient underwent the prevascular region procedure decision regarding AK versus BKA depending on his response to this procedure. Patient has probably dementia and MRSA in the wounds and patient was treated with daptomycin and Zosyn and will be discharged on antibiotics patient will come back for amputation of the left leg as mentioned above coronary artery disease, triple coronary artery disease status post cardiac cath and stent placement in the LAD Peripheral vascular disease, need a vascular surgery after cardiac cath. Including left external iliac artery chronic kidney disease stage III -Acute renal failure secondary to excessivediuretics, improved and patient will be resumed on home dose of diuretics Diabetes mellitus Elevated lactic acid Hyperlipidemia Hypertension Chronic atrial fibrillation patient was switched to Eliquis off Coumadin now Plan - Discharge Summary Discharge Rx Participant: No New Discharge Prescriptions: New Apixaban [Eliquis] 2.5 mg PO BID #60 tablet Continue Furosemide [Lasix] 20 mg PO DAILY Carvedilol [Coreg] 12.5 mg PO BID-W/MEALS Aspirin EC [Ecotrin Low Dose] 81 mg PO DAILY HYDROcodone/APAP 10-325MG [[place] 10-325] 1 tab PO Q4H PRN PRN Reason: Pain Insulin Detemir (Levemir) [Levemir] 30 units SQ QAM Discontinued Enalapril [Vasotec] 10 mg PO DAILY Warfarin [Coumadin] See Taper PO DAILY Amoxicillin/Potassium Clav [Augmentin 875-125 Tablet] 1 tab PO Q12H No Action Clopidogrel [Plavix] 75 mg PO DAILY Atorvastatin [Lipitor] 40 mg PO DAILY Discharge Medication List Atorvastatin [Lipitor] 40 mg PO DAILY 01/08/18 [History] Clopidogrel [Plavix] 75 mg PO DAILY 01/08/18 [History] Aspirin EC [Ecotrin Low Dose] 81 mg PO DAILY 06/13/20 [History] Carvedilol [Coreg] 12.5 mg PO BID-W/MEALS 06/13/20 [History] Furosemide [Lasix] 20 mg PO DAILY 06/13/20 [History] HYDROcodone/APAP 10-325MG [[place] 10-325] 1 tab PO Q4H PRN 06/13/20 [History] Insulin Detemir (Levemir) [Levemir] 30 units SQ QAM 06/13/20 [History] Apixaban [Eliquis] 2.5 mg PO BID #60 tablet 06/25/20 [Rx] Follow up Appointment(s)/Referral(s): Lakhwinder Carlos MD [Primary Care Provider] - 1-2 days Kristian Craft MD [STAFF PHYSICIAN] - 1 Week Jose Lopez MD [STAFF PHYSICIAN] - 2 Weeks [facility] [NON-STAFF] - As Needed (wheelchair) Cesar Delcid DO [STAFF PHYSICIAN] - 1 Week Rico Fox MD [STAFF PHYSICIAN] - 2 Weeks Erasto Jason MD [STAFF PHYSICIAN] - 1 Week Activity/Diet/Wound Care/Special Instructions: [facility]: #[phone] Discharge Disposition: HOME WITH HOME HEALTH SERVICES
[2020-06-25 12:03] LABS: Glucose,Whole Blood 139 mg/dL (75-99)
--- NOTE | 2020-06-25 12:32 | PN ---
PROGRESS NOTE Mr. Phan is a 65-year-old gentleman who underwent surgery on his left lower extremity, vascular surgery, by Dr. Tucker. He is doing better. He still has a wound VAC and has some discomfort, but clinically doing better. He has chronic atrial fib. Rate control is good. He has mild renal dysfunction, but creatinine has improved. We have resumed Eliquis 2.5 mg b.i.d. He also underwent PTCA and stenting of a complex LAD lesion from right femoral approach with Impella support. Cardiac-umanzor stable, doing well. His atrial fibrillation rate is well controlled. He is back on anticoagulation. I would recommend the current medications and await further input from Vascular Surgery. The patient can be discharged whenever okay by vascular surgeon. Vitals are stable. No JVD. S1, S2 heard normally, short systolic murmur. Irregular rate and rhythm. Lungs reveal improved air entry. Abdomen is soft. Lower extremity exam is unchanged. MMODL / IJN: [id number] /
--- NOTE | 2020-06-25 13:30 | P.PN ---
Subjective Progress Note Date: 06/25/20 Principal diagnosis: Left iliofemoral occlusion with left lower extremity ischemia Patient was seen and evaluated sitting up in bed. States that he is being discharged home today and will follow up with Dr. Fox for further plan of care. He denies any bleeding. States the left lower extremity pain has improved significantly. Objective - Vital Signs Vital signs: Vital Signs Temp 98.0 F 06/25/20 04:00 Pulse 62 06/25/20 04:00 Resp 16 06/25/20 04:00 BP 102/62 06/25/20 04:00 Pulse Ox 97 06/25/20 04:00 Intake & Output 06/24/20 06/25/20 06/25/20 18:59 06:59 18:59 Intake Total 615 240 Output Total 560 300 Balance 55 -300 240 Weight 98 kg Intake: IV 315 Lactated Ringers 1,000 ml 140 @ 20 mls/hr IV .Q24H NEHA Rx#:[id number] Piperacillin-Tazobactam 3 75 .375 gm In Sodium Chloride 0.9% 100 ml @ 25 mls/hr IVPB Q8HR NEHA Rx# :[id number] Sodium Ferric Gluconat- 100 Sucrose 125 mg In Sodium Chloride 0.9% 100 ml @ 100 mls/hr IVPB DAILY NEHA Rx#:[id number] Oral 300 240 Blood Product 0 Rc Pheresis As3 Unit 0 [id number] Output: Urine 560 300 Other: Voiding Method Urinal Urinal # Voids 0 1 # Bowel Movements 1 ABP, PAP, CO, CI - Last Documented Arterial Blood Pressure 144/141 - Exam General appearance: The patient is alert, oriented, appears in no acute distress. HET: Head is normocephalic and atraumatic. Neck: Supple without lymphadenopathy. Trachea midline. Abdomen: Soft, nontender, nondistended with bowel sounds. No peritoneal signs. No palpable organomegaly or masses. Extremities: Right groin with hematoma and ecchymosis, access site without any bleeding. Left groin with prevena dressing. Palpable right femoral pulse, left deferred due to dressing. Right dorsalis pedis with monophasic Doppler signal, left popliteal with multiphasic Doppler signal. Left lower extremity amputation with dressing that is clean dry and intact. Right foot with dressing clean dry and intact. Neurological: No focal deficits. - Labs CBC & Chem 7: 06/25/20 06:11 06/25/20 06:11 Labs: Abnormal Lab Results - Last 24 Hours (Table) 06/21/20 06/24/20 06/24/20 Range/Units 06:34 16:55 20:00 WBC (3.8-10.6) k/uL RBC (4.30-5.90) m/uL Hgb (13.0-17.5) gm/dL Hct (39.0-53.0) % RDW (11.5-15.5) % Chloride (98-107) mmol/L BUN (9-20) mg/dL Creatinine (0.66-1.25) mg/dL POC Glucose (mg/dL) 151 H 72 L (75-99) mg/dL Crossmatch See Detail 06/25/20 06/25/20 06/25/20 Range/Units 06:11 06:11 08:16 WBC 10.8 H (3.8-10.6) k/uL RBC 3.11 L (4.30-5.90) m/uL Hgb 8.7 L (13.0-17.5) gm/dL Hct 27.3 L (39.0-53.0) % RDW 17.5 H (11.5-15.5) % Chloride 109 H (98-107) mmol/L BUN 23 H (9-20) mg/dL Creatinine 1.69 H (0.66-1.25) mg/dL POC Glucose (mg/dL) 126 H (75-99) mg/dL Crossmatch Assessment and Plan Assessment: 1. Postop day #2 for a left oral, external iliac, profunda endarterectomy with patch angioplasty. Left external iliac artery balloon angioplasty with stent placement. 2. Left iliofemoral occlusion with left lower extremity critical limb ischemia 3. Patient status post left foot amputation Plan: 1. Supportive care 2. Continue medical management 3. Continue with physical therapy We will sign off at this time, Dr. Fox will resume with any vascular surgical care The impression and plan of care has been dictated as directed. Dr. Adler I performed a history and examination of this patient, discussed the same with the dictator. I agree with the dictator's note ,documented as a scribe. Any additional findings or plans will be noted.
[2020-06-25 14:11] VITALS: BP 112/74; PULSE 54; RESP 20
--- NOTE | 2020-06-25 15:23 | PN ---
PROGRESS NOTE DATE OF SERVICE: 06/25/2020 REASON FOR FOLLOWUP: Left diabetic foot infection. INTERVAL HISTORY: The patient is currently afebrile. Patient is breathing comfortably. Patient denies having any chest pain or any cough. No nausea, no vomiting, no abdominal pain. No pain to the left foot disarticulation site. PHYSICAL EXAMINATION: Blood pressure 112/74 with a pulse of 54, temperature 96.1. He is 93% on room air. General description is an elderly male lying in bed in no distress. RESPIRATORY SYSTEM: Unlabored breathing, clear to auscultation anteriorly. HEART: S1, S2. Regular rate and rhythm. ABDOMEN: Soft, no tenderness. He did have a wound on the right foot plantar aspect with no slough tissue. No surrounding swelling, redness or any drainage. LABS: Hemoglobin 8.7, white count 10.8. BUN of 23, creatinine 1.69. DIAGNOSTIC IMPRESSION AND PLAN: Patient with left diabetic foot infection, status post disarticulation with significant peripheral arterial disease status post FENCE INSTALLER FOREMAN, stenting and left leg . He will finish therapy with oral doxycycline 100 mg twice daily for 10 days and close outpatient followup. MMODL / IJN: [id number] /
--- NOTE | 2020-06-25 16:10 | PN ---
PROGRESS NOTE The patient is seen for followup for acute kidney injury on top of chronic kidney disease. He is currently comfortable. Patient is being considered for discharge. He will follow up as outpatient with Vascular Surgery for possible further surgery on his left leg. No significant complaints today. PHYSICAL EXAMINATION: Blood pressure is 116/64, heart rate of 64 per minute. Patient is afebrile. EXAMINATION OF THE HEART: S1, S2. EXAMINATION OF THE LUNGS: Bilateral breath sounds are heard. Abdomen is soft, nontender. Examination of lower extremities shows chronic skin changes with discoloration of the skin and some chronic edema. INTERNATIONAL SPECIALIST exam grossly intact. Disarticulation of the left foot. LABS: Labs show sodium 138, potassium 4.0, chloride 109, BUN 23, creatinine 1.69. ASSESSMENT: 1. Acute kidney injury, acute tubular necrosis, currently improving. Renal function is stable with creatinine staying at 1.7 to 1.6 mg/dL now. 2. Peripheral vascular disease, status post disarticulation of the left foot for gangrene and osteomyelitis, status post iliofemoral angioplasty and stent placement. 3. Chronic atrial fibrillation. 4. Chronic kidney disease, stage 3B, secondary to diabetic kidney disease and nephrosclerosis. Baseline creatinine close to 2 mg/dL. PLAN: Patient can be discharged. We can resume his home dose of diuretics at 20 mg of Lasix p.o. daily. He will follow up as outpatient in about 2 weeks time. Otherwise, we will see him as inpatient when he is readmitted for further surgery on his left leg. MMODL / WESLYN: [id number] /
[2020-06-25 16:31] LABS: Glucose,Whole Blood 145 mg/dL (75-99)
--- NOTE | 2020-06-26 11:46 | CDI ---
Documentation Clarification Form Date: 06/26/20 From: Kenisha Soto Phone: If you have a question about this query, please contact Tiarra Canela, Yarn Spinner at [phone] between 8am and 5pm. Admit Date: 06/13/2020 09:33:00 AM Patient Name: Ben Phan Visit Number: [id number] Discharge Date: 06/25/2020 06:10:00 PM ATTENTION: The Clinical Documentation Specialists (CDI) and [facility] Coding Staff appreciate your assistance in clarifying documentation. Please respond to the clarification below the line at the bottom and electronically sign. The CDI & [facility] Coding staff will review the response and follow-up if needed. Please note: Queries are made part of the Legal Health Record. If you have any questions, please contact the author of this message via ITS. Dr. Kristian Craft, Documentation in the Operative Report included: Successful placement of Impella in the left ventricle from right groin approach. History/Risk factors: Type II DM w gangrene, osteo, foot ulcer, CKD, HTN w CKD IIIb, anemia in CKD, a flutter, a fib Pre-Operative Diagnosis: CAD of mid LAD Postoperative Diagnosis: CAD of mid LAD Treatment: Successful placement of Impella in the left ventricle from right groin approach. In order to capture the severity of condition, please specify the following: Was Impella only used intraoperatively? Was Impella left in at the end of the procedure? If Impella left in at the end of the procedure when was Impella removed? It was used intraoperatively MTDD
--- NOTE | 2020-06-26 11:55 | CDI ---
Documentation Clarification Form Date: 06/26/20 From: Kenisha Soto Phone: If you have a question about this query, please contact Tiarra Canela, Materials Management Manager at [phone] between 8am and 5pm. Admit Date: 06/13/2020 09:33:00 AM Patient Name: Ben Phan Visit Number: [id number] Discharge Date: 06/25/2020 06:10:00 PM ATTENTION: The Clinical Documentation Specialists (CDI) and [facility] Coding Staff appreciate your assistance in clarifying documentation. Please respond to the clarification below the line at the bottom and electronically sign. The CDI & [facility] Coding staff will review the response and follow-up if needed. Please note: Queries are made part of the Legal Health Record. If you have any questions, please contact the author of this message via ITS. Dr. Rico Fox, Osteomyelitis has been documented in the : H&P, PNs, surg path, FOOTCMLT. History/Risk Factors: Type II DM w gangrene, osteo, foot ulcer, CKD, HTN w CKD IIIb, anemia in CKD, a flutter, a fib Clinical Indicators: Gangrene of the left foot, x-rays suspicious for cellulitis, myositis or an abscess with possible osteomyelitis and gas-forming organisms in the soft tissue Labs: WBC-16.0, Neutrophil-13.9, Lactic acid-2.2 FOOTCMLT: Findings consistent with osteomyelitis, possible gas-forming organisms within the soft tissues, correlate for cellulitis, possible myositis, abscess. Path results: Left foot skin and soft tissue with abundant acute and chronic inflammation, ulceration, and extensive necrosis. Bone with osteonecrosis and focal area favoring osteomyelitis. Resection margin tissue having necrosis and acute and chronic inflammation. Treatment: Disarticulation of the left foot In your professional opinion, please specify the following: Acuity of left foot osteomyelitis: Acute Chronic Subacute Unable to Determine acute MTDD
--- NOTE | 2020-06-26 15:51 | CDI ---
Documentation Clarification Form Date: 06/26/2020 02:58:19 PM From: Celestina Cedeño RN CCDS Admit Date: 06/13/2020 09:33:00 AM Patient Name: Ben Phan Visit Number: [id number] Discharge Date: 06/25/2020 06:10:00 PM ATTENTION: The Clinical Documentation Specialists (CDI) and [facility] Coding Staff appreciate your assistance in clarifying documentation. Please respond to the clarification below the line at the bottom and electronically sign. The CDI & [facility] Coding staff will review the response and follow-up if needed. Please note: Queries are made part of the Legal Health Record. If you have any questions, please contact the author of this message via ITS. Dr. Kristian Craft Patient developed a hematoma, which was reduced with fem stop. Documented in the Cardiology Progress note 06/20. Patients Admitting Diagnosis: Severe triple vessel coronary artery disease. Not a cardiac surgery candidate at this time he would be extremely high risk. Post-Operative Diagnosis: Reduction of stenosis from 99% to 0% Procedure performed: Impella in the left ventricle from right groin approach. Arthrectomy of the left anterior descending artery using orbital arthrectomy device from [facility]. Stenting of the mid left anterior descending artery using two Xience drug-eluting stents measuring 2.75 x 38 and 3.0 x 15mm. Right common femoral artery angiogram. History/Risk Factors: 65-year-old male presents to the ED with left leg discoloration. Sent in by vascular surgeon Dr. Fox with critical limb ischemia, occluded left iliac/femoral artery, non-healing gangrenous foot. Clinical Indicators: Medical History: Chronic atrial fibrillation on coumadin; PAD; DM; HTN; CAD and CKD Stage 3B. Hemoglobin dropped most probably from hematoma. He is receiving blood transfusion. Documented in Cardiology progress note 06/21 Hgb 06/17: 8.7; 06/20 Hgb 7.1; 06/21 Hgb 6.6; 06/22 Hgb 7.0; 06/23 Hgb 8.0; 06/23 Hgb 9.2; 06/24 Hgb 8.7. Plavix 75mg PO administered 06/14; 06/15 & 06/16. Phytonadione 2.5mg PO 06/14. Phytonadione 10mg PO 06/15; 06/19. Coumadin 5mg PO 06/16; 06/17; 06/18. Coumadin 1mg PO 06/17; 06/18. Coumadin 2mg PO 06/18 Heparin 8,000 Units IV 06/19 Treatment: 06/19 Fem Stop; 06/21 1 Unit PRBC; 06/22 1 Unit PRBC; 06/23 2 Units PRBC. In order to accurately reflect this patients severity of illness, please clarify if the Hematoma: -is a complication of surgical procedure -is an expected outcome of the surgical procedure -is related to co-morbid condition(s) of -Other please specify -Unable to determine (Last Revision: June 2019) Is an expected outcome of the surgical procedure MTDD
== END 2020-06-25 18:10 | disposition home health service (06) | DRG 215 ==
LOC: EC 09:01 → 4SSUR 09:33 → 2SICU 06-19 17:10 → 3SCARD 06-24 17:10
PROVIDERS: ADMIT Hospitalist; ATTEND Hospitalist
PROC: 0Y6N0Z0 Detachment at Left Foot, Complete, Open Approach (ICD-10-PCS; 2020-06-15)
PROC: 02HA3RJ Insertion of Short-term External Heart Assist System into Heart, Intraoperative, Percutaneous Approach (ICD-10-PCS; principal; 2020-06-19 14:05)
PROC: 5A0221D Assistance with Cardiac Output using Impeller Pump, Continuous (ICD-10-PCS; principal; 2020-06-19 14:05)
PROC: 027035Z Dilation of Coronary Artery, One Artery with Two Drug-eluting Intraluminal Devices, Percutaneous Approach (ICD-10-PCS; principal; 2020-06-19 14:05)
PROC: X2C0361 Extirpation of Matter from Coronary Artery, One Artery using Orbital Atherectomy Technology, Percutaneous Approach, New Technology Group 1 (ICD-10-PCS; principal; 2020-06-19 14:05)
PROC: B41G1ZZ Fluoroscopy of Left Lower Extremity Arteries using Low Osmolar Contrast (ICD-10-PCS; 2020-06-23)
PROC: 4A133B1 Monitoring of Arterial Pressure, Peripheral, Percutaneous Approach (ICD-10-PCS; 2020-06-23)
PROC: 03HY32Z Insertion of Monitoring Device into Upper Artery, Percutaneous Approach (ICD-10-PCS; 2020-06-23)
PROC: 4A133J1 Monitoring of Arterial Pulse, Peripheral, Percutaneous Approach (ICD-10-PCS; 2020-06-23)
PROC: 047J3DZ Dilation of Left External Iliac Artery with Intraluminal Device, Percutaneous Approach (ICD-10-PCS; 2020-06-23 08:30)
PROC: 04UL0JZ Supplement Left Femoral Artery with Synthetic Substitute, Open Approach (ICD-10-PCS; 2020-06-23 08:30)
PROC: 04CJ0ZZ Extirpation of Matter from Left External Iliac Artery, Open Approach (ICD-10-PCS; 2020-06-23 08:30)
PROC: 04UJ0JZ Supplement Left External Iliac Artery with Synthetic Substitute, Open Approach (ICD-10-PCS; 2020-06-23 08:30)
PROC: 04CL0ZZ Extirpation of Matter from Left Femoral Artery, Open Approach (ICD-10-PCS; 2020-06-23 08:30)
DX: E11.52 Type 2 diabetes mellitus with diabetic peripheral angiopathy with gangrene (principal); N17.0 Acute kidney failure with tubular necrosis; I70.262 Atherosclerosis of native arteries of extremities with gangrene, left leg; E87.2 Acidosis; L03.116 Cellulitis of left lower limb; I48.3 Typical atrial flutter; I48.19 Other persistent atrial fibrillation; D62 Acute posthemorrhagic anemia; M86.172 Other acute osteomyelitis, left ankle and foot; E11.69 Type 2 diabetes mellitus with other specified complication; D63.1 Anemia in chronic kidney disease; L97.529 Non-pressure chronic ulcer of other part of left foot with unspecified severity; E11.621 Type 2 diabetes mellitus with foot ulcer; E11.22 Type 2 diabetes mellitus with diabetic chronic kidney disease; I70.245 Atherosclerosis of native arteries of left leg with ulceration of other part of foot; I12.9 Hypertensive chronic kidney disease with stage 1 through stage 4 chronic kidney disease, or unspecified chronic kidney disease; Z89.429 Acquired absence of other toe(s), unspecified side; Z79.4 Long term (current) use of insulin; N18.32 Chronic kidney disease, stage 3b; F03.90 Unspecified dementia, unspecified severity, without behavioral disturbance, psychotic disturbance, mood disturbance, and anxiety; J44.9 Chronic obstructive pulmonary disease, unspecified; E87.5 Hyperkalemia; S30.1XXA Contusion of abdominal wall, initial encounter; I25.5 Ischemic cardiomyopathy; E61.1 Iron deficiency; B95.62 Methicillin resistant Staphylococcus aureus infection as the cause of diseases classified elsewhere; G47.00 Insomnia, unspecified; R00.1 Bradycardia, unspecified; E78.5 Hyperlipidemia, unspecified; I25.10 Atherosclerotic heart disease of native coronary artery without angina pectoris; F41.9 Anxiety disorder, unspecified; R79.1 Abnormal coagulation profile; F17.210 Nicotine dependence, cigarettes, uncomplicated; Z71.6 Tobacco abuse counseling; Z79.82 Long term (current) use of aspirin; Z79.02 Long term (current) use of antithrombotics/antiplatelets; Z79.01 Long term (current) use of anticoagulants; Z79.899 Other long term (current) drug therapy; Z98.42 Cataract extraction status, left eye; Z98.41 Cataract extraction status, right eye; Z95.5 Presence of coronary angioplasty implant and graft; Z83.3 Family history of diabetes mellitus
CPT/HCPCS: 36415; 37221; 64445; 76770; 76942; 80048; 80053; 81001; 82565; 82728; 83540; 83550; 83605; 83735; 85025; 85027; 85610; 85730; 86850; 86900; 86901; 86920; 87040; 87070; 87075; 87077; 87186; 87205; 88304; 88305; 88307; 88311; 93005; 96365; 96375; 99285

== ENCOUNTER 2021-08-26 12:16 | Emergency (ER) | payer MEDICARE ==
[2021-08-26 12:23] LABS: Glucose,Whole Blood 90 mg/dL (75-99)
[2021-08-26] MEDS ORDERED: EPINEPHrine 4 MG in DEXTROSE 5% IN WATER 250 ML IV ONE ×2 (12:25)
[2021-08-26] MEDS ORDERED: SODIUM CHLORIDE 0.9% 1,000 ML IV ONE (12:43)
[2021-08-26 12:50] VITALS: BP 128/90
[2021-08-26 12:50] LABS: INR 1.6 (<1.2); Partial Thromboplastin Time 38.6 sec (22.0-30.0); Prothrombin Time 16.8 sec (9.0-12.0)
[2021-08-26 12:51] LABS: Anisocytosis Slight; HCT 34.2 % (39.0-53.0); HGB 9.3 gm/dL (13.0-17.5); Hypochromasia Marked; MCH 29.2 pg (25.0-35.0); MCHC 27.1 g/dL (31.0-37.0); MCV 107.8 fL (80.0-100.0); Macrocytosis Marked; Mean Platelet Volume 7.7; Platelet Count 169 k/uL (150-450); Poikilocytosis Slight; RBC 3.17 m/uL (4.30-5.90)
[2021-08-26 12:52] LABS: Albumin 2.4 g/dL (3.5-5.0); Potassium 5.1 mmol/L (3.5-5.1); Total Bilirubin 1.7 mg/dL (0.2-1.3); Total Protein 4.9 g/dL (6.3-8.2)
[2021-08-26] MEDS ORDERED: CALCIUM CHLORIDE 100 MG/ML 10 ML SYRINGE IVP STA (12:54)
[2021-08-26 13:03] LABS: Bacteria,Urine Many /hpf; Bilirubin,Urine Negative (Negative); Blood,Urine Large (Negative); Color,Urine Yellow; Glucose,Urine (UA) Negative (Negative); Ketones,Urine Negative (Negative); Leukocyte Esterase,Urine Large (Negative); Mucus,Urine Rare /hpf; Nitrite,Urine Negative (Negative); Protein,Urine 2+ (Negative); RBC,Urine 61 /hpf (0-5); Specific Gravity,Urine 1.016 (1.001-1.035); Squamous Epithelial Cell,Urine 7 /hpf (0-4); Urobilinogen,Urine <2.0 mg/dL (<2.0); WBC,Urine >182 /hpf (0-5)
[2021-08-26 13:07] LABS: Appearance,Urine Turbid (Clear)
--- NOTE | 2021-08-26 13:07 | XR ---
EXAMINATION TYPE: XR chest 1V portable DATE OF EXAM: 08/26/2021 COMPARISON: NONE HISTORY: Status post intubation TECHNIQUE: Single frontal view of the chest is obtained. FINDINGS: There is opacification of the left hemithorax. Airspace disease is diffuse in the right he mithorax. No evident pneumothorax. Endotracheal tube is overlying the tracheal air column in appropri ate position, NG tube is also present coursing towards the stomach. Bones are within normal limits. C entral venous catheter is noted distal tip is likely over the superior vena cava level accounting for differences in technique. IMPRESSION: Correlate for volume overload, pulmonary edema, probable associated left pleural effusio n and atelectasis versus pneumonia. Rotated exam.
[2021-08-26 13:35] LABS: Band Neutrophils % 4 %; Basophils # (M) 0.08 k/uL (0-0.2); Eosinophils # (M) 0.08 k/uL (0-0.7); Lymphocytes # (M) 2.35 k/uL (1.0-4.8); Metamyelocytes # (M) 0.24 k/uL (0); Metamyelocytes % 3 %; Monocytes # (M) 0.41 k/uL (0-1.0); Myelocytes # (M) 0.24 k/uL (0); Myelocytes % 3 %; Neutrophils % (M) 57 %; Nucleated Red Blood Cells 4 /100 WBC (0-0); Polychromasia Present; Total Cells Counted 200; WBC 8.1 k/uL (3.8-10.6)
--- NOTE | 2021-08-26 14:10 | ED ---
CPR HPI - General Chief Complaint: Cardiac Arrest/CPR Stated Complaint: Cardiac Arrest Time Seen by Provider: 08/26/21 12:16 Source: EMS Mode of arrival: EMS Limitations: altered mental status - History of Present Illness Initial Comments: 66-year-old male with past medical history of coronary artery disease, end-stage renal disease on hemodialysis, peripheral vascular disease with amputation of the left lower extremity presents to the emergency department from [facility]. EMS reports that the facility called them at 11:21 AM to see that the patient was unresponsive without a pulse. They were on scene at 11:23 and began CPR after patient found aystole. They ended up getting return of spontaneous circulation after 20 minutes of CPR and were told to bypass [facility] from the doctor on staff there. Paramedics subsequently lost pulses again. He was given a total of 7 epi from them and 1 defibrillation for a brief episode of vfib. Patient arrives without a pulse and a downtime of 1 hour. He is a dialysis patient however had not missed any recent treatments. Remainder of the HPI is limited because the patient's unresponsive state - Related Data Home Medications Medication Instructions Recorded Confirmed Atorvastatin [Lipitor] 40 mg PO HS 01/08/18 08/26/21 Clopidogrel [Plavix] 75 mg PO DAILY 01/08/18 08/26/21 Furosemide [Lasix] 40 mg PO BID@0800,1600 06/13/20 08/26/21 Apixaban [Eliquis] 5 mg PO BID 08/26/21 08/26/21 Cholecalciferol (Vitamin D3) 125 mcg PO DAILY 08/26/21 08/26/21 [Vitamin D3 (125 MCG = 5,000 IU)] Doxycycline [Vibramycin] 100 mg PO BID 08/26/21 08/26/21 Enulose 10gm/15ml 20 gm PO DAILY PRN 08/26/21 08/26/21 Famotidine [Pepcid] 20 mg PO DAILY 08/26/21 08/26/21 HYDROcodone/APAP 5-325MG [[place] 1 tab PO Q6HR PRN 08/26/21 08/26/21 5-325] Ipratropium-Albuterol Nebulize 3 ml INHALATION RT-Q4H PRN 08/26/21 08/26/21 [Duoneb 0.5 mg-3 mg/3 ml Soln] Ipratropium-Albuterol Nebulize 3 ml INHALATION RT-QID 08/26/21 08/26/21 [Duoneb 0.5 mg-3 mg/3 ml Soln] Nephro-Bree 1 tab PO DAILY 08/26/21 08/26/21 Nicotine 14Mg/24Hr Patch [Habitrol 1 patch TRANSDERM DAILY 08/26/21 08/26/21 14Mg/24Hr Patch] Allergies Allergy/AdvReac Type Severity Reaction Status Date / Time No Known Allergies Allergy Verified 06/15/20 17:12 Review of Systems ROS Statement: Those systems with pertinent positive or pertinent negative responses have been documented in the HPI. ROS Other: All systems not noted in ROS Statement are negative. Past Medical History Past Medical History: Atrial Fibrillation, Coronary Artery Disease (CAD), COPD, Diabetes Mellitus, Hyperlipidemia, Hypertension, Renal Disease Additional Past Medical History / Comment(s): PAD History of Any Multi-Drug Resistant Organisms: MRSA Date of last positivie culture/infection: 06/15/20 MDRO Source:: FOOT Past Surgical History: Heart Catheterization With Stent, Orthopedic Surgery Additional Past Surgical History / Comment(s): toe amputation, cataracts Past Anesthesia/Blood Transfusion Reactions: No Reported Reaction Date of Last Stent Placement:: 2015 Past Psychological History: No Psychological Hx Reported Smoking Status: Heavy tobacco smoker Past Alcohol Use History: Rare Past Drug Use History: None Reported - Past Family History Mother Family Medical History: Diabetes Mellitus General Exam Limitations: altered mental status General appearance: other (unresponsive to painful or verbal stimuli) Head exam: Present: atraumatic, normocephalic, normal inspection Pupils: Present: mydriatic (8 mm fixed) ENT exam: Present: mucous membranes dry Neck exam: Present: normal inspection. Absent: tenderness, meningismus, lymphadenopathy Respiratory exam: Present: other (no spontaneous breath sounds) Cardiovascular Exam: Present: other (no palpable pulse) GI/Abdominal exam: Present: distended Extremities exam: Present: other (no ROM. ecchymosis b/l forearms) Neurological exam: Present: other (unresponsive) Skin exam: Present: pallor, mottled Course Vital Signs 08/26/21 08/26/21 08/26/21 12:38 12:43 12:49 Pulse Rate 54 L 48 L 38 L Respiratory 20 20 20 Rate Blood Pressure 77/60 63/40 128/90 O2 Sat by Pulse 91 L Oximetry 08/26/21 13:10 Pulse Rate 0 L Respiratory 0 L Rate Blood Pressure O2 Sat by Pulse Oximetry Procedures - Intubation Laryngoscope: fiber optic video scope Size: 4 ET Tube Size: 8 ET Tube Uncuffed: No Tube Secured Depth (cm): 22 Tube Secured Location: lips Tube Placement Confirmation: visualized tube passing through cords, equal breath sounds bilaterally, no breath sounds over epigastrium, confirmation by capnometry Patient Tolerated Procedure: well, no complications Medical Decision Making - Medical Decision Making Upon arrival patient was placed in a trauma 2. History was obtained. Patient arrives without a pulse and therefore CPR is continued. First pulse check demonstrated V. fib and therefore the patient was shocked with 200 J. 300 mg of amiodarone was given. As he is a dialysis patient he is given an amp of calcium chloride, an amp of bicarb, 2.5 g of magnesium. He had been given one bag of IV fluids by EMS and was given a second liter by us. Several pulse checks are performed. Patient does enter a bradycardic rhythm. He is given a dose of atropine without improvement in his heart rate. Blood pressure and EKG obtained. Epi drip is ordered from the pharmacy. Patient is placed on epi drip however continues to have significant bradycardia and codes for a second time. CPR is continued. Repetitive pulse checks continued to demonstrate PE A. At this time the patient has had CPR for over 2 hours therefore time of is called at 1310. Did contact Dr. Carlos's office who is willing to sign the certificate. Additionally spoke with the medical van driver's office. legal instruments examiner number [id number]. - Lab Data Result diagrams: 08/26/21 12:32 08/26/21 12:32 Lab Results 08/26/21 08/26/21 08/26/21 Range/Units 12:21 12:32 12:32 WBC 8.1 (3.8-10.6) k/uL RBC 3.17 L (4.30-5.90) m/uL Hgb 9.3 L (13.0-17.5) gm/dL Hct 34.2 L (39.0-53.0) % MCV 107.8 H (80.0-100.0) fL MCH 29.2 (25.0-35.0) pg MCHC 27.1 L (31.0-37.0) g/dL RDW 18.0 H (11.5-15.5) % Plt Count 169 (150-450) k/uL MPV 7.7 Neutrophils % (Manual) 57 % Band Neuts % (Manual) 4 % Lymphocytes % (Manual) 29 % Monocytes % (Manual) 5 % Eosinophils % (Manual) 1 % Basophils % (Manual) 1 % Metamyelocytes % 3 % Myelocytes % 3 % Neutrophils # (Manual) 4.90 (1.3-7.7) k/uL Lymphocytes # (Manual) 2.35 (1.0-4.8) k/uL Monocytes # (Manual) 0.41 (0-1.0) k/uL Eosinophils # (Manual) 0.08 (0-0.7) k/uL Basophils # (Manual) 0.08 (0-0.2) k/uL Metamyelocytes # (Man) 0.24 H (0) k/uL Myelocytes # (Manual) 0.24 H (0) k/uL Nucleated RBCs 4 H (0-0) /100 WBC Manual Slide Review Performed Polychromasia Present Hypochromasia Marked Poikilocytosis Slight Anisocytosis Slight Macrocytosis Marked A PT 16.8 H (9.0-12.0) sec INR 1.6 H (<1.2) APTT 38.6 H (22.0-30.0) sec Sodium (137-145) mmol/L Potassium (3.5-5.1) mmol/L Chloride (98-107) mmol/L Carbon Dioxide (22-30) mmol/L Anion Gap mmol/L BUN (9-20) mg/dL Creatinine (0.66-1.25) mg/dL Est GFR (CKD-EPI)AfAm (>60 ml/min/1.73 sqM) Est GFR (CKD-EPI)NonAf (>60 ml/min/1.73 sqM) Glucose (74-99) mg/dL POC Glucose (mg/dL) 90 (75-99) mg/dL POC Glu Clam Grower ID GregorySarah Calcium (8.4-10.2) mg/dL Magnesium (1.6-2.3) mg/dL Total Bilirubin (0.2-1.3) mg/dL AST (17-59) U/L ALT (4-49) U/L Alkaline Phosphatase (38-126) U/L Troponin I (0.000-0.034) ng/mL Total Protein (6.3-8.2) g/dL Albumin (3.5-5.0) g/dL Urine Color Urine Appearance (Clear) Urine pH (5.0-8.0) Ur Specific [place] (1.001-1.035) Urine Protein (Negative) Urine Glucose (UA) (Negative) Urine Ketones (Negative) Urine Blood (Negative) Urine Nitrite (Negative) Urine Bilirubin (Negative) Urine Urobilinogen (<2.0) mg/dL Ur Leukocyte Esterase (Negative) Urine RBC (0-5) /hpf Urine WBC (0-5) /hpf Urine WBC Clumps (None) /hpf Ur Squamous Epith Cells (0-4) /hpf Urine Bacteria (None) /hpf Urine Mucus (None) /hpf 08/26/21 08/26/21 08/26/21 Range/Units 12:32 12:32 12:48 WBC (3.8-10.6) k/uL RBC (4.30-5.90) m/uL Hgb (13.0-17.5) gm/dL Hct (39.0-53.0) % MCV (80.0-100.0) fL MCH (25.0-35.0) pg MCHC (31.0-37.0) g/dL RDW (11.5-15.5) % Plt Count (150-450) k/uL MPV Neutrophils % (Manual) % Band Neuts % (Manual) % Lymphocytes % (Manual) % Monocytes % (Manual) % Eosinophils % (Manual) % Basophils % (Manual) % Metamyelocytes % % Myelocytes % % Neutrophils # (Manual) (1.3-7.7) k/uL Lymphocytes # (Manual) (1.0-4.8) k/uL Monocytes # (Manual) (0-1.0) k/uL Eosinophils # (Manual) (0-0.7) k/uL Basophils # (Manual) (0-0.2) k/uL Metamyelocytes # (Man) (0) k/uL Myelocytes # (Manual) (0) k/uL Nucleated RBCs (0-0) /100 WBC Manual Slide Review Polychromasia Hypochromasia Poikilocytosis Anisocytosis Macrocytosis PT (9.0-12.0) sec INR (<1.2) APTT (22.0-30.0) sec Sodium 133 L (137-145) mmol/L Potassium 5.1 (3.5-5.1) mmol/L Chloride 97 L (98-107) mmol/L Carbon Dioxide 20 L (22-30) mmol/L Anion Gap 16 mmol/L BUN 15 (9-20) mg/dL Creatinine 1.75 H (0.66-1.25) mg/dL Est GFR (CKD-EPI)AfAm 46 (>60 ml/min/1.73 sqM) Est GFR (CKD-EPI)NonAf 40 (>60 ml/min/1.73 sqM) Glucose 84 (74-99) mg/dL POC Glucose (mg/dL) (75-99) mg/dL POC Glu Clam Grower ID Calcium 8.0 L (8.4-10.2) mg/dL Magnesium 2.0 (1.6-2.3) mg/dL Total Bilirubin 1.7 H (0.2-1.3) mg/dL AST 1103 H (17-59) U/L ALT 388 H (4-49) U/L Alkaline Phosphatase 92 (38-126) U/L Troponin I 0.277 H* (0.000-0.034) ng/mL Total Protein 4.9 L (6.3-8.2) g/dL Albumin 2.4 L (3.5-5.0) g/dL Urine Color Yellow Urine Appearance Turbid (Clear) Urine pH 6.0 (5.0-8.0) Ur Specific [place] 1.016 (1.001-1.035) Urine Protein 2+ H (Negative) Urine Glucose (UA) Negative (Negative) Urine Ketones Negative (Negative) Urine Blood Large H (Negative) Urine Nitrite Negative (Negative) Urine Bilirubin Negative (Negative) Urine Urobilinogen <2.0 (<2.0) mg/dL Ur Leukocyte Esterase Large H (Negative) Urine RBC 61 H (0-5) /hpf Urine WBC >182 H (0-5) /hpf Urine WBC Clumps Many H (None) /hpf Ur Squamous Epith Cells 7 H (0-4) /hpf Urine Bacteria Many H (None) /hpf Urine Mucus Rare H (None) /hpf - EKG Data EKG Comments: EKG demonstrates A. fib with a rate of 61. QRS 234. QTC 467. ST elevation in V3V4. Depression V5 and V6 Critical Care Time Critical Care Time: Yes Critical Care Time: 40 minutes Disposition Clinical Impression: Cardiac arrest Disposition: Referrals: Lakhwinder Carlos MD [Primary Care Provider] - 1-2 days Preliminary Cause of : cardiac arrest
[2021-08-26 14:23] VITALS: PULSE 0; RESP 0
== END 2021-08-26 17:12 | disposition expired ==
LOC: EC 12:16 → SUPCPDRO 12:16 → EC 17:12
DX: I46.9 Cardiac arrest, cause unspecified (principal); E11.9 Type 2 diabetes mellitus without complications; I10 Essential (primary) hypertension; I25.10 Atherosclerotic heart disease of native coronary artery without angina pectoris; Z79.82 Long term (current) use of aspirin; F17.200 Nicotine dependence, unspecified, uncomplicated
CPT/HCPCS: 99291 ×2; 96365 ×2; 96375 ×2; 36415; 94002; 93005; 80053; 83735; 84484; 85025; 85610; 85730; 81001; 87070; 87086; 87205; 87077; 87186; 71045; J0171